=== PATIENT | female | born 1960 | race Caucasian/White ===

== ENCOUNTER 2019-06-30 23:08 | Emergency (ER) | payer BC ==
[2019-06-30 23:17] VITALS: BP 193/87; PULSE 95; RESP 20; TEMP 99
--- NOTE | 2019-06-30 23:22 | ED ---
General Adult HPI - General Chief complaint: Extremity Injury, Lower Stated complaint: unable to walk/right hip pain Time Seen by Provider: 06/30/19 23:21 Source: patient, family Mode of arrival: ambulatory Limitations: no limitations - History of Present Illness Initial comments: Patient presents the ED with her complaining of having right hip and thigh pain for the past week or so. Patient states that her pain is worse with ambulation and changes in position. Patient states that her pain began after a road trip to [place]. Patient states that she was also laying on her side a lot while in [place], and she is unsure if she may have injured her right leg. Patient states that she has taken Aleve for her pain today without much relief. Patient denies known trauma or fall. Patient denies fever or chills, headache, chest pain, dyspnea, dizziness, abdominal pain, nausea or vomiting, back pain, focal numbness/weakness/neuro deficit, or any other symptoms or complaints. - Related Data Allergies Allergy/AdvReac Type Severity Reaction Status Date / Time Penicillins Allergy Rash/Hives Verified 06/30/19 23:17 Review of Systems ROS Statement: Those systems with pertinent positive or pertinent negative responses have been documented in the HPI. ROS Other: All systems not noted in ROS Statement are negative. Past Medical History Past Medical History: No Reported History History of Any Multi-Drug Resistant Organisms: None Reported Past Surgical History: Hysterectomy Past Psychological History: No Psychological Hx Reported Smoking Status: Never smoker Past Alcohol Use History: None Reported Past Drug Use History: None Reported General Exam Limitations: no limitations General appearance: alert, in no apparent distress Head exam: Present: atraumatic, normocephalic Eye exam: Present: normal appearance, EOMI ENT exam: Present: mucous membranes moist Respiratory exam: Present: normal lung sounds bilaterally. Absent: respiratory distress, wheezes, rales, rhonchi Cardiovascular Exam: Present: regular rate, normal rhythm, normal heart sounds, other (Normal dorsalis pedis pulses bilaterally) GI/Abdominal exam: Present: soft. Absent: distended, tenderness Extremities exam: Present: other (Trace bipedal edema; negative Leonela's sign bilaterally; right lateral hip tenderness). Absent: calf tenderness Back exam: Present: full ROM. Absent: tenderness Neurological exam: Present: alert, oriented X3, other (No evidence of lower extremity neurological deficit or saddle anesthesia). Absent: motor sensory deficit Psychiatric exam: Present: normal affect, normal mood Skin exam: Present: warm, dry, intact, normal color Course Vital Signs 06/30/19 23:12 Temperature 99 F Pulse Rate 95 Respiratory 20 Rate Blood Pressure 193/87 O2 Sat by Pulse 100 Oximetry Medical Decision Making - Medical Decision Making Patient denies development of any new pain or symptoms while in the ED. Patient's right hip and right femur x-rays are negative. Patient's right lower extremity venous Doppler ultrasound is negative for DVT. I suspect that the patient's right hip/lower extremity pain is likely secondary to a hip strain or potentially trochanteric bursitis. Patient and are aware the patient's test results. Patient was was counseled about hip pain/strain/bursitis, she feels comfortable going home with her at this time. She was instructed to continue taking NSAIDs as needed/as directed for her pain. She was clearly explained return and follow-up instructions. She was instructed to follow up closely with her primary care provider. Patient was instructed to return to the ED should she develop new or worsening pain, fever, chest pain, shortness of breath, vomiting, feeling dizzy or faint, or near worsening symptoms. She feels comfortable with this plan. - Radiology Data Radiology results: report reviewed (Right lower extremity venous Doppler ultrasound is negative for DVT), image reviewed (Right hip and right femur x- rays are negative for acute fracture or dislocation) Disposition Clinical Impression: Right hip pain Disposition: HOME SELF-CARE Condition: Stable Instructions (If sedation given, give patient instructions): Hip Bursitis (ED), Hip Pain (ED) Additional Instructions: Return to the ER immediately should you develop new or worsening pain, fever, chest pain, shortness of breath, vomiting, feeling dizzy or faint, or near worsening symptoms. Follow up closely with your primary care provider. Is patient prescribed a controlled substance at d/c from ED?: No Referrals: None,Stated [Primary Care Provider] - 1-2 days Time of Disposition: 01:08
[2019-06-30] MEDS ORDERED: oxyCODONE-APAP 5-325MG 1 EACH TAB PO STA (23:28)
--- NOTE | 2019-07-01 00:28 | XR ---
EXAMINATION TYPE: XR femur RT DATE OF EXAM: 06/30/2019 COMPARISON: NONE HISTORY: Hip pain TECHNIQUE: 4 views FINDINGS: I see no fracture nor dislocation. I see no focal bone destruction.. There is spurring on t he superior patella. Hip joint is intact. There is some spurring at the femoral and tibial condyles. IMPRESSION: Minor osteoarthritis. No fracture seen.
--- NOTE | 2019-07-01 00:30 | XR ---
EXAMINATION TYPE: XR Hip Complete RT DATE OF EXAM: 06/30/2019 COMPARISON: NONE HISTORY: Femur and hip pain TECHNIQUE: 2 views FINDINGS: I see no fracture nor dislocation. Hip joint space is fairly normal. There is no sign of hi p dysplasia. IMPRESSION: Negative right hip exam.
--- NOTE | 2019-07-01 00:50 | US ---
EXAMINATION TYPE: US venous doppler duplex LE RT DATE OF EXAM: 07/01/2019 12:34 AM COMPARISON: NONE CLINICAL HISTORY: Right thigh pain, rule out DVT. SIDE PERFORMED: Right TECHNIQUE: The lower extremity deep venous system is examined utilizing real time linear array sonog rohith with graded compression, doppler sonography and color-flow sonography. VESSELS IMAGED: External Iliac Vein (EIV) Common Femoral Vein Deep Femoral Vein Greater Saphenous Vein * Femoral Vein Popliteal Vein Small Saphenous Vein * Proximal Calf Veins (* superficial vessels) Right Leg: Negative for DVT IMPRESSION: No sign of deep vein thrombosis in the right leg.
== END 2019-07-01 01:17 | disposition home or self-care (01) ==
LOC: EC 23:08
DX: M25.551 Pain in right hip (principal); M79.651 Pain in right thigh; Z88.0 Allergy status to penicillin
CPT/HCPCS: 73502; 99284

== ENCOUNTER 2019-07-03 16:05 | Observation (INO) | payer BC ==
[2019-07-03 16:17] LABS: Glucose,Whole Blood >600 mg/dL (75-99)
[2019-07-03 16:40] LABS: Basophils % (A) 0 %; Eosinophils # (A) 0.1 k/uL (0-0.7); Eosinophils % (A) 1 %; HCT 36.2 % (34.0-46.0); HGB 11.3 gm/dL (11.4-16.0); Hypochromasia Slight; Lymphocytes % (A) 14 %; MCHC 31.3 g/dL (31.0-37.0); MCV 89.3 fL (80.0-100.0); Mean Platelet Volume 7.3; Monocytes # (A) 0.5 k/uL (0-1.0); Monocytes % (A) 3 %; Neutrophils # (A) 12.1 k/uL (1.3-7.7); Neutrophils % (A) 81 %; Platelet Count 458 k/uL (150-450); RBC 4.05 m/uL (3.80-5.40); RDW 13.4 % (11.5-15.5); WBC 14.9 k/uL (3.8-10.6)
[2019-07-03 16:46] LABS: Appearance,Urine Clear (Clear); Bilirubin,Urine Negative (Negative); Blood,Urine Small (Negative); Color,Urine Colorless; Glucose,Urine (UA) 4+ (Negative); Ketones,Urine Negative (Negative); Leukocyte Esterase,Urine Small (Negative); Mucus,Urine Rare /hpf; Nitrite,Urine Negative (Negative); PH, Urine 5.5 (5.0-8.0); Protein,Urine Trace (Negative); RBC,Urine 9 /hpf (0-5); Specific Gravity,Urine 1.023 (1.001-1.035); Squamous Epithelial Cell,Urine 1 /hpf (0-4); Urobilinogen,Urine <2.0 mg/dL (<2.0); WBC,Urine 55 /hpf (0-5)
[2019-07-03 16:51] LABS: ALT 14 U/L (4-34); AST 26 U/L (14-36); African American GFR (CKD) >90 (>60 ml/min/1.73 sqM); Albumin 2.8 g/dL (3.5-5.0); Alkaline Phosphatase 167 U/L (38-126); Amylase <30 U/L (30-110); Anion Gap 12 mmol/L; Blood Urea Nitrogen 17 mg/dL (7-17); Calcium 7.6 mg/dL (8.4-10.2); Carbon Dioxide 25 mmol/L (22-30); Chloride 86 mmol/L (98-107); Non-African American GFR(CKD) >90 (>60 ml/min/1.73 sqM); Potassium 4.7 mmol/L (3.5-5.1); Sodium 123 mmol/L (137-145); Total Bilirubin 0.4 mg/dL (0.2-1.3); Total Protein 6.9 g/dL (6.3-8.2)
[2019-07-03] MEDS ORDERED: SODIUM CHLORIDE 0.9% 1,000 ML IV STA ×4 (16:59→19:11)
[2019-07-03] MEDS ORDERED: SODIUM CHLORIDE 0.9% 500 ML 500 ML IV STA ×2 (16:59→19:01)
--- NOTE | 2019-07-03 17:01 | ED ---
Recheck HPI - General Chief Complaint: Recheck/Abnormal Lab/Rx Stated Complaint: Sent by doctor Time Seen by Provider: 07/03/19 16:58 Source: patient, RN notes reviewed, old records reviewed Mode of arrival: ambulatory Limitations: no limitations - History of Present Illness Initial Comments: This is a 50-year-old female DF for evaluation patient is in here for recurrent evaluation of right hip pain is was abnormal outpatient blood sugar. He has not been feeling well for quite some time came back from vacation due to having severe hip pain she was on medications but the whole time in a wheelchair because of this pain. She states she is having difficulty bearing weight on her right leg denying dysuria denying trauma. Patient was seen in emergency department 2 days ago for similar complaint seen by primary care Sent to ER today for further management treatment. MD Complaint: wound re-check (Recheck right foot right leg pain), abnormal lab (Recheck abnormal blood sugar) -: days(s) Returns Today for: Called Because of Abnormal Lab/Test Context: called for abnormal lab result (elevated Blood Sugar) Treatments Prior to Arrival: other medications - Related Data Allergies Allergy/AdvReac Type Severity Reaction Status Date / Time Penicillins Allergy Rash/Hives Verified 07/03/19 16:16 Review of Systems ROS Statement: Those systems with pertinent positive or pertinent negative responses have been documented in the HPI. ROS Other: All systems not noted in ROS Statement are negative. Past Medical History Past Medical History: Diabetes Mellitus, Hypertension History of Any Multi-Drug Resistant Organisms: None Reported Past Surgical History: Hysterectomy, Tonsillectomy Past Psychological History: No Psychological Hx Reported Smoking Status: Never smoker Past Alcohol Use History: None Reported Past Drug Use History: None Reported General Exam Limitations: no limitations General appearance: alert, in no apparent distress Head exam: Present: atraumatic, normocephalic, normal inspection Eye exam: Present: normal appearance, PERRL, EOMI. Absent: scleral icterus, conjunctival injection, periorbital swelling ENT exam: Present: normal exam, mucous membranes moist Neck exam: Present: normal inspection. Absent: tenderness, meningismus, lym phadenopathy Respiratory exam: Present: normal lung sounds bilaterally. Absent: respiratory distress, wheezes, rales, rhonchi, stridor Cardiovascular Exam: Present: regular rate, normal rhythm, tachycardia, normal heart sounds. Absent: systolic murmur, diastolic murmur, rubs, gallop, clicks GI/Abdominal exam: Present: soft, normal bowel sounds. Absent: distended, tenderness, guarding, rebound, rigid Extremities exam: Present: normal inspection, full ROM, normal capillary refill, other (Right Hip Pain, ttt, ttp, decROM). Absent: tenderness, pedal edema, joint swelling, calf tenderness Back exam: Present: normal inspection Neurological exam: Present: alert, oriented X3, CN II-XII intact Psychiatric exam: Present: normal affect, normal mood Skin exam: Present: warm, dry, intact, normal color. Absent: rash Course Vital Signs 07/03/19 07/03/19 16:13 18:15 Temperature 99.9 F H Pulse Rate 103 H 86 Respiratory 20 16 Rate Blood Pressure 182/77 176/82 O2 Sat by Pulse 100 100 Oximetry - Reevaluation(s) Reevaluation #1: 07/03/19 19:18 Medical record is reviewed Reevaluation #2: 07/03/19 19:18 Patient is having improved symptoms and improved pain control Reevaluation #3: 07/03/19 19:20 will obtain MRI in am - Consultations Consultation #1: Spoke with Dr. Clemens was agreeable for admission, would like Dr. Garvin for orthopedic consult Medical Decision Making - Medical Decision Making 58 female to the ER for evaluation, severe right hip pain, patient having severe right hip pain elevated CRP patient will place on IV antibiotics and admitted for evaluation and treatment - Lab Data Result diagrams: 07/03/19 16:25 07/03/19 16:25 Lab Results 07/03/19 07/03/19 07/03/19 Range/Units 16:09 16:15 16:25 WBC 14.9 H (3.8-10.6) k/uL RBC 4.05 (3.80-5.40) m/uL Hgb 11.3 L (11.4-16.0) gm/dL Hct 36.2 (34.0-46.0) % MCV 89.3 (80.0-100.0) fL MCH 28.0 (25.0-35.0) pg MCHC 31.3 (31.0-37.0) g/dL RDW 13.4 (11.5-15.5) % Plt Count 458 H (150-450) k/uL Neutrophils % 81 % Lymphocytes % 14 % Monocytes % 3 % Eosinophils % 1 % Basophils % 0 % Neutrophils # 12.1 H (1.3-7.7) k/uL Lymphocytes # 2.0 (1.0-4.8) k/uL Monocytes # 0.5 (0-1.0) k/uL Eosinophils # 0.1 (0-0.7) k/uL Basophils # 0.0 (0-0.2) k/uL Hypochromasia Slight PT (9.0-12.0) sec INR (<1.2) APTT (22.0-30.0) sec Sodium (137-145) mmol/L Potassium (3.5-5.1) mmol/L Chloride (98-107) mmol/L Carbon Dioxide (22-30) mmol/L Anion Gap mmol/L BUN (7-17) mg/dL Creatinine (0.52-1.04) mg/dL Est GFR (CKD-EPI)AfAm (>60 ml/min/1.73 sqM) Est GFR (CKD-EPI)NonAf (>60 ml/min/1.73 sqM) Glucose (74-99) mg/dL POC Glucose (mg/dL) >600 H (75-99) mg/dL POC Glu Chemical Engraver ID Shannon Meehan Plasma Lactic Acid Tello (0.7-2.0) mmol/L Calcium (8.4-10.2) mg/dL Phosphorus 3.3 (2.5-4.5) mg/dL Magnesium 1.8 (1.6-2.3) mg/dL Total Bilirubin (0.2-1.3) mg/dL AST (14-36) U/L ALT (4-34) U/L Alkaline Phosphatase (38-126) U/L C-Reactive Protein 331.9 H (<10.0) mg/L Total Protein (6.3-8.2) g/dL Albumin (3.5-5.0) g/dL Amylase (30-110) U/L Lipase (23-300) U/L Urine Color Urine Appearance (Clear) Urine pH (5.0-8.0) Ur Specific [place] (1.001-1.035) Urine Protein (Negative) Urine Glucose (UA) (Negative) Urine Ketones (Negative) Urine Blood (Negative) Urine Nitrite (Negative) Urine Bilirubin (Negative) Urine Urobilinogen (<2.0) mg/dL Ur Leukocyte Esterase (Negative) Urine RBC (0-5) /hpf Urine WBC (0-5) /hpf Ur Squamous Epith Cells (0-4) /hpf Urine Mucus (None) /hpf Acetone, Qual (Negative) 07/03/19 07/03/19 07/03/19 Range/Units 16:25 16:25 16:25 WBC (3.8-10.6) k/uL RBC (3.80-5.40) m/uL Hgb (11.4-16.0) gm/dL Hct (34.0-46.0) % MCV (80.0-100.0) fL MCH (25.0-35.0) pg MCHC (31.0-37.0) g/dL RDW (11.5-15.5) % Plt Count (150-450) k/uL Neutrophils % % Lymphocytes % % Monocytes % % Eosinophils % % Basophils % % Neutrophils # (1.3-7.7) k/uL Lymphocytes # (1.0-4.8) k/uL Monocytes # (0-1.0) k/uL Eosinophils # (0-0.7) k/uL Basophils # (0-0.2) k/uL Hypochromasia PT 10.3 (9.0-12.0) sec INR 1.0 (<1.2) APTT 23.1 (22.0-30.0) sec Sodium 123 L (137-145) mmol/L Potassium 4.7 (3.5-5.1) mmol/L Chloride 86 L (98-107) mmol/L Carbon Dioxide 25 (22-30) mmol/L Anion Gap 12 mmol/L BUN 17 (7-17) mg/dL Creatinine 0.63 (0.52-1.04) mg/dL Est GFR (CKD-EPI)AfAm >90 (>60 ml/min/1.73 sqM) Est GFR (CKD-EPI)NonAf >90 (>60 ml/min/1.73 sqM) Glucose 631 H* (74-99) mg/dL POC Glucose (mg/dL) (75-99) mg/dL POC Glu Chemical Engraver ID Plasma Lactic Acid Tello (0.7-2.0) mmol/L Calcium 7.6 L (8.4-10.2) mg/dL Phosphorus (2.5-4.5) mg/dL Magnesium (1.6-2.3) mg/dL Total Bilirubin 0.4 (0.2-1.3) mg/dL AST 26 (14-36) U/L ALT 14 (4-34) U/L Alkaline Phosphatase 167 H (38-126) U/L C-Reactive Protein (<10.0) mg/L Total Protein 6.9 (6.3-8.2) g/dL Albumin 2.8 L (3.5-5.0) g/dL Amylase <30 L (30-110) U/L Lipase 108 (23-300) U/L Urine Color Colorless Urine Appearance Clear (Clear) Urine pH 5.5 (5.0-8.0) Ur Specific [place] 1.023 (1.001-1.035) Urine Protein Trace H (Negative) Urine Glucose (UA) 4+ H (Negative) Urine Ketones Negative (Negative) Urine Blood Small H (Negative) Urine Nitrite Negative (Negative) Urine Bilirubin Negative (Negative) Urine Urobilinogen <2.0 (<2.0) mg/dL Ur Leukocyte Esterase Small H (Negative) Urine RBC 9 H (0-5) /hpf Urine WBC 55 H (0-5) /hpf Ur Squamous Epith Cells 1 (0-4) /hpf Urine Mucus Rare H (None) /hpf Acetone, Qual Negative (Negative) 07/03/19 Range/Units 16:25 WBC (3.8-10.6) k/uL RBC (3.80-5.40) m/uL Hgb (11.4-16.0) gm/dL Hct (34.0-46.0) % MCV (80.0-100.0) fL MCH (25.0-35.0) pg MCHC (31.0-37.0) g/dL RDW (11.5-15.5) % Plt Count (150-450) k/uL Neutrophils % % Lymphocytes % % Monocytes % % Eosinophils % % Basophils % % Neutrophils # (1.3-7.7) k/uL Lymphocytes # (1.0-4.8) k/uL Monocytes # (0-1.0) k/uL Eosinophils # (0-0.7) k/uL Basophils # (0-0.2) k/uL Hypochromasia PT (9.0-12.0) sec INR (<1.2) APTT (22.0-30.0) sec Sodium (137-145) mmol/L Potassium (3.5-5.1) mmol/L Chloride (98-107) mmol/L Carbon Dioxide (22-30) mmol/L Anion Gap mmol/L BUN (7-17) mg/dL Creatinine (0.52-1.04) mg/dL Est GFR (CKD-EPI)AfAm (>60 ml/min/1.73 sqM) Est GFR (CKD-EPI)NonAf (>60 ml/min/1.73 sqM) Glucose (74-99) mg/dL POC Glucose (mg/dL) (75-99) mg/dL POC Glu Chemical Engraver ID Plasma Lactic Acid Tello 1.4 (0.7-2.0) mmol/L Calcium (8.4-10.2) mg/dL Phosphorus (2.5-4.5) mg/dL Magnesium (1.6-2.3) mg/dL Total Bilirubin (0.2-1.3) mg/dL AST (14-36) U/L ALT (4-34) U/L Alkaline Phosphatase (38-126) U/L C-Reactive Protein (<10.0) mg/L Total Protein (6.3-8.2) g/dL Albumin (3.5-5.0) g/dL Amylase (30-110) U/L Lipase (23-300) U/L Urine Color Urine Appearance (Clear) Urine pH (5.0-8.0) Ur Specific [place] (1.001-1.035) Urine Protein (Negative) Urine Glucose (UA) (Negative) Urine Ketones (Negative) Urine Blood (Negative) Urine Nitrite (Negative) Urine Bilirubin (Negative) Urine Urobilinogen (<2.0) mg/dL Ur Leukocyte Esterase (Negative) Urine RBC (0-5) /hpf Urine WBC (0-5) /hpf Ur Squamous Epith Cells (0-4) /hpf Urine Mucus (None) /hpf Acetone, Qual (Negative) Critical Care Time Critical Care Time: Yes Total Critical Care Time: 31 Disposition Clinical Impression: Fever, Hyperglycemia, Dehydration, Hyponatremia, Right hip pain Narrative: r/o Septic Arthritis Disposition: ADMITTED IP TO THIS [facility] Condition: Fair Is patient prescribed a controlled substance at d/c from ED?: No Referrals: Shade Clemens MD [Primary Care Provider] - 1-2 days
[2019-07-03 17:02] LABS: Partial Thromboplastin Time 23.1 sec (22.0-30.0); Prothrombin Time 10.3 sec (9.0-12.0)
[2019-07-03 17:06] LABS: Glucose 631 mg/dL (74-99)
[2019-07-03 17:31] LABS: Magnesium 1.8 mg/dL (1.6-2.3); Phosphorus 3.3 mg/dL (2.5-4.5)
[2019-07-03 17:53] LABS: C Reactive Protein 331.9 mg/L (<10.0)
[2019-07-03] MEDS ORDERED: LORazepam 2 MG/ML INJ IM STA (18:19)
[2019-07-03] MEDS ORDERED: VANCOMYCIN IV PER PHARMACY 1 EACH MISC MISCELLANE PRN (19:01)
[2019-07-03] MEDS ORDERED: INSULIN REGULAR 100 UNIT/ML VIAL IV ONE (19:11)
[2019-07-03] MEDS ORDERED: INSULIN REGULAR 100 UNIT/ML VIAL SQ ONE (19:11)
[2019-07-03] MEDS ORDERED: VANCOMYCIN 1,250 MG in SODIUM CHLORIDE 0.9% 250 ML IVPB STA (19:15)
[2019-07-03] MEDS ORDERED: KETOROLAC 30 MG/ML 1 ML VIAL IVP STA (19:21)
[2019-07-03] MEDS ORDERED: MORPHINE SULFATE 4 MG/ML SYRINGE IVP STA (19:21)
[2019-07-03] MEDS ORDERED: MORPHINE SULFATE 4 MG/ML SYRINGE IVP PRN (19:21)
[2019-07-03 20:11] LABS: Glucose,Whole Blood 313 mg/dL (75-99)
[2019-07-03 21:38] LABS: Glucose,Whole Blood 252 mg/dL (75-99)
[2019-07-03] MEDS: INSULIN ASPART (NovoLOG) 100 UNIT/ML VIAL SQ SCH (22:02)
[2019-07-04] MEDS: KETOROLAC 30 MG/ML 1 ML VIAL IVP PRN ×2 (05:23→16:22)
[2019-07-04 06:59] LABS: Glucose,Whole Blood 247 mg/dL (75-99)
[2019-07-04] MEDS ORDERED: INSULIN ASPART (NovoLOG) 100 UNIT/ML VIAL SQ SCH (07:30)
[2019-07-04] MEDS: ENOXAPARIN 40 MG/0.4 ML SYRINGE SQ SCH (07:42)
[2019-07-04] MEDS: INSULIN ASPART (NovoLOG) 100 UNIT/ML VIAL SQ SCH ×6 (07:42→21:40)
--- NOTE | 2019-07-04 07:44 | P.HPIM ---
History of Present Illness H&P Date: 07/04/19 Chief Complaint: Hip pain The patient is here complaining of right hip pain However, after she told me she was diabetic and her blood sugar was over 600 on my glucometer. Evaluation of this after being worked up in the emergency room. Question hip element. Orthopedic surgery has now been consulted. Review of Systems Constitutional: Reports chronic pain, Denies chills, Denies fever Eyes: denies blurred vision, denies pain Ears, nose, mouth and throat: Denies headache, Denies sore throat Respiratory: Denies cough Genitourinary: Reports urinary frequency Musculoskeletal: Denies myalgias Integumentary: Denies pruritus, Denies rash Neurological: Denies numbness, Denies weakness Past Medical History Past Medical History: Diabetes Mellitus, Hypertension History of Any Multi-Drug Resistant Organisms: None Reported Past Surgical History: Hysterectomy, Tonsillectomy Past Anesthesia/Blood Transfusion Reactions: No Reported Reaction Past Psychological History: No Psychological Hx Reported Smoking Status: Never smoker Past Alcohol Use History: None Reported Past Drug Use History: None Reported - Past Family History Father Family Medical History: Diabetes Mellitus Medications and Allergies Home Medications Medication Instructions Recorded Confirmed Type No Known Home Medications 07/03/19 07/03/19 History Allergies Allergy/AdvReac Type Severity Reaction Status Date / Time Penicillins Allergy Rash/Hives Verified 07/03/19 20:38 Physical Exam Vitals: Vital Signs Temp Pulse Pulse Resp BP BP Pulse Ox 07/03/19 21:29 99.0 F 90 17 152/70 97 07/03/19 20:49 99 F 30 L 18 144/71 96 07/03/19 19:40 92 18 178/88 96 07/03/19 18:15 86 16 176/82 100 07/03/19 16:13 99.9 F H 103 H 20 182/77 100 Intake and Output 07/03/19 07/03/19 07/03/19 06:59 14:59 22:59 Other: Voiding Method Toilet # Voids 0 Weight 68.492 kg - Constitutional General appearance: no acute distress - EENT Eyes: EOMI - Neck Neck: no lymphadenopathy - Respiratory Respiratory: bilateral: CTA - Cardiovascular Rhythm: regular Heart sounds: normal: S1, S2 Abnormal Heart Sounds: no S3 Gallop - Gastrointestinal General gastrointestinal: soft, no tenderness - Integumentary Integumentary: normal turgor - Neurologic Neurologic: CNII-XII intact - Psychiatric Psychiatric: A&O x's 3 Results CBC & Chem 7: 07/03/19 16:25 07/03/19 16:25 Labs: Abnormal Lab Results - Last 24 Hours (Table) 07/03/19 07/03/19 07/03/19 Range/Units 16:09 16:15 16:25 WBC 14.9 H (3.8-10.6) k/uL Hgb 11.3 L (11.4-16.0) gm/dL Plt Count 458 H (150-450) k/uL Neutrophils # 12.1 H (1.3-7.7) k/uL ESR (0-20) mm/hr Sodium (137-145) mmol/L Chloride (98-107) mmol/L Glucose (74-99) mg/dL POC Glucose (mg/dL) >600 H (75-99) mg/dL Calcium (8.4-10.2) mg/dL Alkaline Phosphatase (38-126) U/L C-Reactive Protein 331.9 H (<10.0) mg/L Albumin (3.5-5.0) g/dL Amylase (30-110) U/L Urine Protein (Negative) Urine Glucose (UA) (Negative) Urine Blood (Negative) Ur Leukocyte Esterase (Negative) Urine RBC (0-5) /hpf Urine WBC (0-5) /hpf Urine Mucus (None) /hpf 07/03/19 07/03/19 07/03/19 Range/Units 16:25 16:25 16:25 WBC (3.8-10.6) k/uL Hgb (11.4-16.0) gm/dL Plt Count (150-450) k/uL Neutrophils # (1.3-7.7) k/uL ESR 62 H (0-20) mm/hr Sodium 123 L (137-145) mmol/L Chloride 86 L (98-107) mmol/L Glucose 631 H* (74-99) mg/dL POC Glucose (mg/dL) (75-99) mg/dL Calcium 7.6 L (8.4-10.2) mg/dL Alkaline Phosphatase 167 H (38-126) U/L C-Reactive Protein (<10.0) mg/L Albumin 2.8 L (3.5-5.0) g/dL Amylase <30 L (30-110) U/L Urine Protein Trace H (Negative) Urine Glucose (UA) 4+ H (Negative) Urine Blood Small H (Negative) Ur Leukocyte Esterase Small H (Negative) Urine RBC 9 H (0-5) /hpf Urine WBC 55 H (0-5) /hpf Urine Mucus Rare H (None) /hpf 07/03/19 07/03/19 Range/Units 20:08 21:33 WBC (3.8-10.6) k/uL Hgb (11.4-16.0) gm/dL Plt Count (150-450) k/uL Neutrophils # (1.3-7.7) k/uL ESR (0-20) mm/hr Sodium (137-145) mmol/L Chloride (98-107) mmol/L Glucose (74-99) mg/dL POC Glucose (mg/dL) 313 H 252 H (75-99) mg/dL Calcium (8.4-10.2) mg/dL Alkaline Phosphatase (38-126) U/L C-Reactive Protein (<10.0) mg/L Albumin (3.5-5.0) g/dL Amylase (30-110) U/L Urine Protein (Negative) Urine Glucose (UA) (Negative) Urine Blood (Negative) Ur Leukocyte Esterase (Negative) Urine RBC (0-5) /hpf Urine WBC (0-5) /hpf Urine Mucus (None) /hpf Thrombosis Risk Factor Assmnt - Choose All That Apply Any of the Below Risk Factors Present?: Yes Each Factor Represents 1 point: Age 41-60 years Thrombosis Risk Factor Assessment Total Risk Factor Score: 1 Thrombosis Risk Factor Assessment Level: Low Risk Assessment and Plan (1) Hyperglycemia Current Visit: Yes Status: Acute Code(s): R73.9 - HYPERGLYCEMIA, UNSPECIFIED SNOMED Code(s): 23352105 (2) Right hip pain Current Visit: Yes Status: Acute Code(s): M25.551 - PAIN IN RIGHT HIP SNOMED Code(s): 06821120 Plan: Restart insulin. Consult orthopedics for right hip pain. Diabetes education. Check CMP. CODE STATUS is full
[2019-07-04] MEDS: VANCOMYCIN 1,250 MG in SODIUM CHLORIDE 0.9% 250 ML IVPB SCH ×2 (08:39→21:41)
[2019-07-04 11:42] LABS: Glucose,Whole Blood 337 mg/dL (75-99)
[2019-07-04 16:21] VITALS: BMI 25.1
[2019-07-04 16:43] LABS: Glucose,Whole Blood 244 mg/dL (75-99)
--- NOTE | 2019-07-04 16:58 | MR ---
EXAMINATION TYPE: MR hip RT wo/w con DATE OF EXAM: 07/04/2019 COMPARISON: None HISTORY: Rt hip pain x 2 weeks, R/O septic arthritis CONTRAST: Standard multiplanar, multisequence MRI departmental protocol utilizing 7 mL intravenous Gadavist femi olinium contrast. The pelvic ring is intact. Proximal femurs appear intact. There is no evidence of avascular necrosis. There is no significant hip joint effusion. Joint fluid is fairly symmetric in th e hip joints. There is fluid level in the urinary bladder consistent with air from catheterization. There is small amount of free fluid in the pelvis. I see no pelvic mass. The contrast coronal images are limited by artifact. I see no pathologic enhancement. There is abnormal increased signal in the vastus lateralis muscle of the right hip. There is subcutan eous edema over the lateral aspect of the right hip. There is soft tissue edema and fluid signal post erior to the right side rectus femoris muscle at the hip. There is soft tissue pathologic lateral pat hologic enhancement at the hip joint. There is small areas of fluid signal in the soft tissues that m easure up to 1.5 cm. IMPRESSION: No evidence of fracture or avascular necrosis. No evidence of septic arthritis. Symmetric hip joint f luid. Mild free fluid in the pelvis. Subcutaneous edema and soft tissue edema and enhancement lateral to the greater trochanter and the ac etabulum of the right hip that could relate to myositis and phlegmon. Small fluid collections could b e abscesses.
--- NOTE | 2019-07-04 19:44 | P.CNOR ---
History of Present Illness - [facility] Consult date: 07/04/19 Consult reason: joint pain History of present illness: Patient is a pleasant 58 year old female seen at bedside this afternoon in consultation for right hip pain. She states she has had pain at the outside of her right hip for the past few weeks. It is mostly tender to touch or lay on her right side. She denies groin pain or radicular symptoms including numbness or tingling. She denies injury to the right hip or thigh. She denies fever or chills. She has no other current complaints. Review of Systems All systems: negative Constitutional: Denies chills, Denies fever Eyes: denies blurred vision, denies pain Ears, nose, mouth and throat: Denies headache, Denies sore throat Cardiovascular: Denies chest pain, Denies shortness of breath Respiratory: Denies cough Gastrointestinal: Denies abdominal pain, Denies diarrhea, Denies nausea, Denies vomiting Genitourinary: Denies dysuria, Denies hematuria Musculoskeletal: Denies myalgias Integumentary: Denies pruritus, Denies rash Neurological: Denies numbness, Denies weakness Psychiatric: Denies anxiety, Denies depression Endocrine: Denies fatigue, Denies weight change Past Medical History Past Medical History: Diabetes Mellitus, Hypertension History of Any Multi-Drug Resistant Organisms: None Reported Past Surgical History: Hysterectomy, Tonsillectomy Past Anesthesia/Blood Transfusion Reactions: No Reported Reaction Past Psychological History: No Psychological Hx Reported Smoking Status: Never smoker Past Alcohol Use History: None Reported Past Drug Use History: None Reported - Past Family History Father Family Medical History: Diabetes Mellitus Medications and Allergies Home Medications Medication Instructions Recorded Confirmed Type No Known Home Medications 07/03/19 07/03/19 History Allergies Allergy/AdvReac Type Severity Reaction Status Date / Time Penicillins Allergy Rash/Hives Verified 07/03/19 20:38 Physical Examination Inspection of the right hip and lower extremity shows no deformity or shortening. There is no erythema, echymoses or wounds. She is tender to palpation at the greater trochanter. It is not hot to touch. She has no groin pain with internal or external rotation, flexion, abduction or adduction of the hip. Neurovascular status is intact with motor and sensation throughout the lower extremity. 2+ DP pulse and less than 2 sec cap refill is present distally. Calf is SNT Results Xrays and MRI of the right hip are reviewed. There is no evidence of fracture, dislocation, AVN, septic arthritis, abnormal joint fluid collection or lesions. - Labs Labs: Abnormal Lab Results - Last 24 Hours (Table) 07/03/19 07/03/19 07/03/19 Range/Units 16:25 20:08 21:33 ESR 62 H (0-20) mm/hr POC Glucose (mg/dL) 313 H 252 H (75-99) mg/dL 07/04/19 07/04/19 07/04/19 Range/Units 06:58 11:41 16:42 ESR (0-20) mm/hr POC Glucose (mg/dL) 247 H 337 H 244 H (75-99) mg/dL H & H 07/03/19 Range/Units 16:25 Hgb 11.3 L (11.4-16.0) gm/dL Hct 36.2 (34.0-46.0) % Coagulation 07/03/19 Range/Units 16:25 INR 1.0 (<1.2) Result Diagrams: 07/03/19 16:25 07/03/19 16:25 - Diagnostic results Hip x-ray: report reviewed, image reviewed Hip MRI: report reviewed, image reviewed Assessment and Plan (1) Trochanteric bursitis of right hip Narrative/Plan: There is no plan for immediate surgical intervention. She appears to be suffering from greater trochanteric bursitis. I have recommended continue conservative measures including ice, avoiding laying on right side, and NSAIDs as tolerated and directed by primary team. She may follow up as an outpatient. Thank you Current Visit: Yes Status: Acute Priority: Medium Code(s): M70.61 - TROCHANTERIC BURSITIS, RIGHT HIP SNOMED Code(s): 1593664 (2) Right hip pain Current Visit: Yes Status: Acute Priority: Medium Code(s): M25.551 - PAIN IN RIGHT HIP SNOMED Code(s): 16484550
[2019-07-04 19:59] LABS: Hemoglobin A1C 14.2 % (4.0-6.0)
[2019-07-04 21:16] LABS: Glucose,Whole Blood 259 mg/dL (75-99)
[2019-07-04] MEDS: INSULIN DETEMIR (LEVEMIR) 100 UNIT/ML SYR SQ SCH (21:40)
[2019-07-05] MEDS: KETOROLAC 30 MG/ML 1 ML VIAL IVP PRN ×2 (03:04→22:05)
[2019-07-05 06:58] LABS: Glucose,Whole Blood 128 mg/dL (75-99)
[2019-07-05] MEDS: INSULIN ASPART (NovoLOG) 100 UNIT/ML VIAL SQ SCH ×7 (07:23→21:22)
[2019-07-05 07:37] LABS: HCT 30.5 % (34.0-46.0); HGB 9.9 gm/dL (11.4-16.0); MCH 27.8 pg (25.0-35.0); MCHC 32.6 g/dL (31.0-37.0); MCV 85.3 fL (80.0-100.0); Mean Platelet Volume 7.6; Platelet Count 420 k/uL (150-450); RBC 3.57 m/uL (3.80-5.40); RDW 13.3 % (11.5-15.5); WBC 12.3 k/uL (3.8-10.6)
[2019-07-05] MEDS: ENOXAPARIN 40 MG/0.4 ML SYRINGE SQ SCH (07:48)
[2019-07-05 07:57] LABS: ALT 14 U/L (4-34); AST 25 U/L (14-36); African American GFR (CKD) >90 (>60 ml/min/1.73 sqM); Albumin 2.1 g/dL (3.5-5.0); Alkaline Phosphatase 92 U/L (38-126); Anion Gap 6 mmol/L; Blood Urea Nitrogen 11 mg/dL (7-17); Calcium 7.3 mg/dL (8.4-10.2); Carbon Dioxide 24 mmol/L (22-30); Chloride 101 mmol/L (98-107); Glucose 135 mg/dL (74-99); Non-African American GFR(CKD) >90 (>60 ml/min/1.73 sqM); Potassium 4.6 mmol/L (3.5-5.1); Sodium 131 mmol/L (137-145); Total Bilirubin 0.3 mg/dL (0.2-1.3); Total Protein 5.7 g/dL (6.3-8.2)
[2019-07-05 09:11] LABS: Lymphocytes # (M) 1.72 k/uL (1.0-4.8); Monocytes # (M) 0.25 k/uL (0-1.0); Neutrophils # (M) 10.33 k/uL (1.3-7.7); Neutrophils % (M) 84 %; Nucleated Red Blood Cells 0 /100 WBC (0-0); Total Cells Counted 100
[2019-07-05] MEDS: VANCOMYCIN 1,250 MG in SODIUM CHLORIDE 0.9% 250 ML IVPB SCH ×2 (09:12→23:24)
[2019-07-05 12:25] LABS: Glucose,Whole Blood 196 mg/dL (75-99)
--- NOTE | 2019-07-05 16:32 | P.DS ---
Providers Date of admission: 07/04/19 13:11 Attending physician: Shade Clemens Consults: 07/03/19 19:21 Consult Physician Routine Consulting Provider: Jason Garvin Consult Reason/Comments: hip pain Do you want consulting provider notified?: Yes Primary care physician: Shade Clemens - Discharge Diagnosis(es) (1) Hyperglycemia Current Visit: Yes Status: Acute (2) Right hip pain Current Visit: Yes Status: Acute Priority: Medium Hospital Course: This is discharge home in a 58-year-old white female essentially admitted for right hip pain which was found to be myositis. MRI did not show significant issue. However, and more importantly she was admitted for uncontrolled diabetes. She has been noncompliant the last 5 years not taking her insulin. She has had significant weight loss and is now treated appropriately and stabil ized with basal bolus insulin. Patient Condition at Discharge: Fair Plan - Discharge Summary Discharge Rx Participant: No New Discharge Prescriptions: New Insulin Detemir (Levemir) [Levemir] 21 unit SQ HS #3 syr INSULIN ASPART (NovoLOG) [NovoLOG (formulary)] 7 unit SQ AC-TID #1 vial Atorvastatin Calcium [Lipitor] 40 mg PO DAILY #90 tablet Discharge Medication List Atorvastatin Calcium [Lipitor] 40 mg PO DAILY #90 tablet 07/05/19 [Rx] INSULIN ASPART (NovoLOG) [NovoLOG (formulary)] 7 unit SQ AC-TID #1 vial 07/05/19 [Rx] Insulin Detemir (Levemir) [Levemir] 21 unit SQ HS #3 syr 07/05/19 [Rx] Follow up Appointment(s)/Referral(s): [facility] [NON-STAFF] - As Needed (glucometer and supplies ) Shade Clemens MD [Primary Care Provider] - 07/12/19 11:20 am Discharge Disposition: HOME SELF-CARE
[2019-07-05] MEDS: ACETAMINOPHEN TAB 325 MG TAB PO PRN (16:46)
[2019-07-05 16:52] LABS: Glucose,Whole Blood 191 mg/dL (75-99)
[2019-07-05] MEDS ORDERED: VANCOMYCIN TROUGH DUE 1 EACH MISC MISCELLANE ONE (20:00)
[2019-07-05 20:02] LABS: Basophils % (A) 0 %; Eosinophils # (A) 0.1 k/uL (0-0.7); Eosinophils % (A) 0 %; HGB 9.4 gm/dL (11.4-16.0); Lymphocytes # (A) 1.6 k/uL (1.0-4.8); Lymphocytes % (A) 14 %; MCH 26.9 pg (25.0-35.0); MCHC 31.3 g/dL (31.0-37.0); MCV 85.9 fL (80.0-100.0); Mean Platelet Volume 7.2; Monocytes # (A) 0.4 k/uL (0-1.0); Monocytes % (A) 3 %; Neutrophils # (A) 9.3 k/uL (1.3-7.7); Neutrophils % (A) 80 %; Platelet Count 415 k/uL (150-450); RDW 13.2 % (11.5-15.5); WBC 11.6 k/uL (3.8-10.6)
[2019-07-05 20:34] LABS: Appearance,Urine Cloudy (Clear); Bacteria,Urine Rare /hpf; Bilirubin,Urine Negative (Negative); Blood,Urine Small (Negative); Budding Yeast,Urine Few /hpf; Color,Urine Light Yellow; Glucose,Urine (UA) 1+ (Negative); Ketones,Urine Negative (Negative); Leukocyte Esterase,Urine Large (Negative); Mucus,Urine Rare /hpf; Nitrite,Urine Negative (Negative); PH, Urine 5.5 (5.0-8.0); Protein,Urine 1+ (Negative); RBC,Urine 7 /hpf (0-5); Specific Gravity,Urine 1.008 (1.001-1.035); Squamous Epithelial Cell,Urine 1 /hpf (0-4); Urobilinogen,Urine <2.0 mg/dL (<2.0); WBC,Urine >182 /hpf (0-5)
[2019-07-05 20:39] LABS: Glucose,Whole Blood 223 mg/dL (75-99)
[2019-07-05] MEDS: INSULIN DETEMIR (LEVEMIR) 100 UNIT/ML SYR SQ SCH (21:21)
--- NOTE | 2019-07-05 22:19 | XR ---
EXAMINATION: XR chest 2V DATE AND TIME: 07/05/2019 6:57 PM CLINICAL INDICATION: PHH; increase in temperature TECHNIQUE: Departmental protocol COMPARISON: 12/16/2008 FINDINGS: The lungs demonstrate a fine reticular pattern of increased attenuation symmetrically throughout the lungs, minimally silhouetting the pulmonary vasculature. This finding can correlate with a clinical d iagnosis of mild interstitial phase pulmonary edema. The pleural spaces are positive for small pleural effusions posteriorly. The cardiac silhouette is borderline enlarged. The remainder of the mediastinal silhouette is unremar kable. The skeletal structures and soft tissues are negative for acute findings. IMPRESSION: 1. Suspect mild pulmonary edema. 2. Small bilateral pleural effusions.
[2019-07-06 06:45] LABS: Glucose,Whole Blood 184 mg/dL (75-99)
[2019-07-06 08:03] VITALS: PULSE 86; RESP 17
[2019-07-06] MEDS: INSULIN ASPART (NovoLOG) 100 UNIT/ML VIAL SQ SCH ×6 (08:09→17:11)
[2019-07-06] MEDS: ENOXAPARIN 40 MG/0.4 ML SYRINGE SQ SCH (08:10)
[2019-07-06] MEDS: VANCOMYCIN 1,250 MG in SODIUM CHLORIDE 0.9% 250 ML IVPB SCH (09:22)
[2019-07-06 12:06] LABS: Glucose,Whole Blood 160 mg/dL (75-99)
[2019-07-06 15:43] VITALS: BP 160/75; TEMP 99.5
[2019-07-06] MEDS: ACETAMINOPHEN TAB 325 MG TAB PO PRN (15:45)
[2019-07-06 16:55] LABS: Glucose,Whole Blood 232 mg/dL (75-99)
== END 2019-07-06 18:24 | disposition home or self-care (01) ==
LOC: EC 16:05 → UNDOADMIN 19:25 → 4SSUR 19:25 → OBSVTOIN 07-04 13:11 → INTOOBSV 07-04 13:11 → UNDODISIN 07-06 18:24
PROVIDERS: ADMIT Family Medicine; ATTEND Family Medicine
DX: E11.65 Type 2 diabetes mellitus with hyperglycemia (principal); N39.0 Urinary tract infection, site not specified; M70.61 Trochanteric bursitis, right hip; I10 Essential (primary) hypertension; R63.4 Abnormal weight loss; Z91.128 Patient's intentional underdosing of medication regimen for other reason; Z88.0 Allergy status to penicillin; Z90.710 Acquired absence of both cervix and uterus; Z90.89 Acquired absence of other organs; Z79.4 Long term (current) use of insulin; Z68.25 Body mass index [BMI] 25.0-25.9, adult; Z83.3 Family history of diabetes mellitus
CPT/HCPCS: 96376 ×2; 96366 ×4; 96367; 96372 ×3; 96361; 96365; 96375; 99285; 36415; 80053 ×2; 85652; 82150; 82009; 83605 ×2; 83690; 83735; 84100; 85025 ×2; 85027; 80202; 85610; 85730; 86140; 81001 ×2; 87040; 87086; 83036; 71046; 73723; G0378 ×4; J3370 ×4; J0696 ×4; J1650 ×3; J1885 ×3; A9585

== ENCOUNTER → 2020-01-02 | Outpatient (CLI) | payer BC ==
[2020-01-03 00:06] LABS: African American GFR (CKD) 71.4 (60.0-200.0); Albumin 3.8 g/dL (3.80-4.90); Albumin/Globulin Ratio 1.52 (1.60-3.17); Anion Gap 10.5 mmol/L (4.00-12.00); Calcium 8.6 mg/dL (8.7-10.3); Carbon Dioxide 26.5 mmol/L (21.6-31.8); Chol/HDL Ratio 2.17; Globulin 2.5 g/dL (1.6-3.3); LDL Cholesterol,Calculated 36.4 mg/dL (0.0-131.0); Non-African American GFR(CKD) 61.6 (60.0-200.0); Potassium 4.6 mmol/L (3.5-5.5); Total Bilirubin 0.5 mg/dL (0.2-1.2); Total Protein 6.3 g/dL (6.2-8.2); VLDL Calculation 18.6 mg/dL (5.00-40.00)
== END | disposition home or self-care (01) ==
LOC: LABWHC1 15:32
DX: E78.5 Hyperlipidemia, unspecified (principal); E11.9 Type 2 diabetes mellitus without complications; I42.9 Cardiomyopathy, unspecified
CPT/HCPCS: 36415; 80053; 80061

== ENCOUNTER → 2020-01-30 | Outpatient (CLI) | payer BC ==
[2020-01-31 03:02] LABS: African American GFR (CKD) 71.4 (60.0-200.0); Anion Gap 11.7 mmol/L (4.00-12.00); Calcium 8.6 mg/dL (8.7-10.3); Carbon Dioxide 27.3 mmol/L (21.6-31.8); Non-African American GFR(CKD) 61.6 (60.0-200.0); Potassium 4.2 mmol/L (3.5-5.5)
== END | disposition home or self-care (01) ==
LOC: LABWHC1 15:58
PROVIDERS: ATTEND Internal Medicine Cardiovascular Disease
DX: E78.5 Hyperlipidemia, unspecified (principal); R07.89 Other chest pain; I34.0 Nonrheumatic mitral (valve) insufficiency
CPT/HCPCS: 36415; 80048

== ENCOUNTER 2020-06-20 13:21 | Inpatient (IN) | payer BC ==
--- NOTE | 2020-06-20 14:03 | ED ---
Recheck HPI - General Chief Complaint: Recheck/Abnormal Lab/Rx Stated Complaint: Abnormal labs Time Seen by Provider: 06/20/20 13:32 Source: patient, RN notes reviewed Mode of arrival: ambulatory Limitations: no limitations - History of Present Illness Initial Comments: this is a well-appearing and conversant 59-year-old white female patient presents to the emergency room in no acute distress sent by PMD for abnormal potassium level drawn by physician yesterday. Patient was told potassium of 7.0. Patient without any complaints of dizziness shortness of breath chest pain. Patient denies any nausea vomiting diarrhea denies any fevers. MD Complaint: abnormal lab - Related Data Home Medications Medication Instructions Recorded Confirmed Aspirin EC [Ecotrin Low Dose] 81 mg PO DAILY 06/20/20 06/20/20 Cholecalciferol [Vitamin D3 (25 50 mcg PO DAILY 06/20/20 06/20/20 Mcg = 1000 Iu)] DULoxetine HCL [Cymbalta] 60 mg PO DAILY 06/20/20 06/20/20 Fish Oil/Dha/Epa [Fish Oil 1,200 1 cap PO DAILY 06/20/20 06/20/20 mg Fish Oil] Furosemide [Lasix] 40 mg PO DAILY 06/20/20 06/20/20 Insulin Aspart (Niacinamide) 7 units SQ AC-TID 06/20/20 06/20/20 [Fiasp 100 Unit/ml Flextouch] Insulin Degludec [Tresiba 24 units SQ HS 06/20/20 06/20/20 Flextouch U-200] Isosorbide Dinitrate [Isordil] 20 mg PO TID 06/20/20 06/20/20 Metoprolol Succinate (ER) [Toprol 75 mg PO DAILY 06/20/20 06/20/20 Xl] Multivitamins, Thera [Multivitamin 1 tab PO DAILY 06/20/20 06/20/20 (formulary)] Prasugrel [Effient] 10 mg PO DAILY 06/20/20 06/20/20 Sacubitril/Valsartan [Entresto 49 1 tab PO BID 06/20/20 06/20/20 mg-51 mg Tablet] Spironolactone 50 mg PO DAILY 06/20/20 06/20/20 hydrALAZINE HCL [Apresoline] 37.5 mg PO TID 06/20/20 06/20/20 Previous Rx's Medication Instructions Recorded Atorvastatin Calcium [Lipitor] 40 mg PO DAILY #90 tablet 07/05/19 Allergies Allergy/AdvReac Type Severity Reaction Status Date / Time Penicillins Allergy Rash/Hives Verified 06/20/20 13:30 Review of Systems ROS Statement: Those systems with pertinent positive or pertinent negative responses have been documented in the HPI. ROS Other: All systems not noted in ROS Statement are negative. Past Medical History Past Medical History: Diabetes Mellitus, Hyperlipidemia, Hypertension History of Any Multi-Drug Resistant Organisms: None Reported Past Surgical History: Hysterectomy, Tonsillectomy Past Anesthesia/Blood Transfusion Reactions: No Reported Reaction Past Psychological History: No Psychological Hx Reported Smoking Status: Never smoker Past Alcohol Use History: None Reported Past Drug Use History: None Reported - Past Family History Father Family Medical History: Diabetes Mellitus General Exam Limitations: no limitations General appearance: alert, in no apparent distress Respiratory exam: Present: normal lung sounds bilaterally Cardiovascular Exam: Present: bradycardia, normal heart sounds GI/Abdominal exam: Present: soft Course Vital Signs 06/20/20 13:25 Temperature 98.9 F Pulse Rate 59 L Respiratory 20 Rate Blood Pressure 148/77 O2 Sat by Pulse 100 Oximetry Medical Decision Making - Medical Decision Making patient admitted to Dr. Clemens for hyperkalemia and acute kidney injury. patient medicated for hyperkalemia per protocol. Patient remains asymptomatic on color television console monitor sinus bradycardia 58. - Lab Data Result diagrams: 06/20/20 14:32 06/20/20 14:32 Lab Results 06/20/20 06/20/20 Range/Units 14:32 14:32 WBC 8.5 (3.8-10.6) k/uL RBC 4.07 (3.80-5.40) m/uL Hgb 12.7 (11.4-16.0) gm/dL Hct 37.4 (34.0-46.0) % MCV 91.8 (80.0-100.0) fL MCH 31.1 (25.0-35.0) pg MCHC 33.8 (31.0-37.0) g/dL RDW 12.8 (11.5-15.5) % Plt Count 266 (150-450) k/uL MPV 7.1 Sodium 132 L (137-145) mmol/L Potassium 7.4 H* (3.5-5.1) mmol/L Chloride 100 (98-107) mmol/L Carbon Dioxide 23 (22-30) mmol/L Anion Gap 9 mmol/L BUN 33 H (7-17) mg/dL Creatinine 1.22 H (0.52-1.04) mg/dL Est GFR (CKD-EPI)AfAm 56 (>60 ml/min/1.73 sqM) Est GFR (CKD-EPI)NonAf 49 (>60 ml/min/1.73 sqM) Glucose 254 H (74-99) mg/dL Calcium 9.3 (8.4-10.2) mg/dL Magnesium 1.8 (1.6-2.3) mg/dL Total Bilirubin 0.5 (0.2-1.3) mg/dL AST 23 (14-36) U/L ALT 25 (4-34) U/L Alkaline Phosphatase 73 (38-126) U/L Total Protein 7.7 (6.3-8.2) g/dL Albumin 4.5 (3.5-5.0) g/dL - EKG Data EKG shows normal: sinus rhythm, axis Rate: bradycardia EKG Comments: twelve-lead EKG shows sinus bradycardia at 59 bpm, FL interval 16 ms, QRS duration 90 ms, QTC 421 ms. ekg also evaluated by attending physician. Critical Care Time Critical Care Time: Yes Total Critical Care Time: 35 Critical Care Time: patient placing room on color television console monitor IV and labs obtained. Labs reviewed resulting in hyperkalemia 7.4 sodium 32 creatinine 1.2 to glucose 254. Patient medicated with calcium, glucose, insulin, and sodium bicarb and Kayexalate. EKG reviewed initially showing sinus bradycardia rate of 59 with normal FL QRS and QTc intervals patient admitted to Dr. Clemens with consult to nephrology. Disposition Referrals: Shade Clemens MD [Primary Care Provider] - 1-2 days
[2020-06-20 14:52] LABS: Albumin 4.5 g/dL (3.5-5.0); Calcium 9.3 mg/dL (8.4-10.2); HCT 37.4 % (34.0-46.0); HGB 12.7 gm/dL (11.4-16.0); MCH 31.1 pg (25.0-35.0); MCHC 33.8 g/dL (31.0-37.0); MCV 91.8 fL (80.0-100.0); Magnesium 1.8 mg/dL (1.6-2.3); Mean Platelet Volume 7.1; Platelet Count 266 k/uL (150-450); RBC 4.07 m/uL (3.80-5.40); RDW 12.8 % (11.5-15.5); Total Bilirubin 0.5 mg/dL (0.2-1.3); Total Protein 7.7 g/dL (6.3-8.2); WBC 8.5 k/uL (3.8-10.6)
[2020-06-20 14:55] LABS: Potassium 7.4 mmol/L (3.5-5.1)
[2020-06-20] MEDS ORDERED: INSULIN REGULAR 100 UNIT/ML VIAL IV ONE (15:02)
[2020-06-20] MEDS ORDERED: CALCIUM GLUCONATE 1 GM in SODIUM CHLORIDE 0.9% 100 ML IVPB ONE (15:02)
[2020-06-20] MEDS ORDERED: SODIUM BICARB 8.4% 50 ML SYR (1 MEQ/ML) IV ONE (15:02)
[2020-06-20] MEDS ORDERED: SODIUM POLYSTYRENE SULFONATE 15 GM/60 ML BOTTLE PO ONE (15:02)
[2020-06-20] MEDS ORDERED: DEXTROSE 50% SYRINGE 50 ML IVP ONE (15:02)
[2020-06-20] MEDS ORDERED: SODIUM CHLORIDE 0.9% 500 ML 500 ML IV ONE (15:09)
[2020-06-20] MEDS ORDERED: NALOXONE 0.4 MG/ML 1 ML VIAL IV PRN (15:11)
[2020-06-20] MEDS ORDERED: ACETAMINOPHEN TAB 325 MG TAB PO PRN (15:11)
[2020-06-20] MEDS: SODIUM CHLORIDE 0.9% 1,000 ML IV SCH (16:02)
[2020-06-20 17:31] LABS: Calcium 9.2 mg/dL (8.4-10.2); Potassium 5.6 mmol/L (3.5-5.1)
[2020-06-20 18:14] LABS: Glucose,Whole Blood 115 mg/dL (75-99)
[2020-06-20 20:21] LABS: Glucose,Whole Blood 233 mg/dL (75-99)
[2020-06-20] MEDS: ISOSORBIDE DINITRATE 20 MG TAB PO SCH (22:39)
[2020-06-20] MEDS: hydrALAZINE HCL 50 MG TAB PO SCH (22:39)
[2020-06-20] MEDS: METOPROLOL SUCCINATE (ER) 25 MG TAB.ER.24H PO SCH (22:39)
[2020-06-20] MEDS: INSULIN ASPART (NovoLOG) 100 UNIT/ML VIAL SQ SCH (22:45)
[2020-06-21 06:08] LABS: Glucose,Whole Blood 165 mg/dL (75-99)
[2020-06-21] MEDS: INSULIN ASPART (NovoLOG) 100 UNIT/ML VIAL SQ SCH ×6 (06:28→20:30)
[2020-06-21] MEDS: SODIUM CHLORIDE 0.9% 1,000 ML IV SCH ×2 (07:00→20:29)
[2020-06-21 07:25] LABS: Basophils % (A) 0 %; Eosinophils # (A) 0.2 k/uL (0-0.7); Eosinophils % (A) 2 %; HGB 11.8 gm/dL (11.4-16.0); Lymphocytes # (A) 3.2 k/uL (1.0-4.8); Lymphocytes % (A) 41 %; MCHC 33.7 g/dL (31.0-37.0); MCV 92.1 fL (80.0-100.0); Monocytes # (A) 0.6 k/uL (0-1.0); Monocytes % (A) 7 %; Neutrophils # (A) 3.7 k/uL (1.3-7.7); Neutrophils % (A) 47 %; Platelet Count 250 k/uL (150-450); RDW 12.3 % (11.5-15.5); WBC 7.8 k/uL (3.8-10.6)
[2020-06-21 07:47] LABS: Calcium 8.9 mg/dL (8.4-10.2)
[2020-06-21 07:59] LABS: Potassium 6.1 mmol/L (3.5-5.1)
[2020-06-21] MEDS ORDERED: DEXTROSE 50% SYRINGE 50 ML IVP STA (08:11)
[2020-06-21] MEDS ORDERED: CALCIUM GLUCONATE 1 GM in SODIUM CHLORIDE 0.9% 100 ML IVPB ONE (08:11)
[2020-06-21] MEDS ORDERED: INSULIN REGULAR 100 UNIT/ML VIAL IV ONE (08:11)
[2020-06-21] MEDS: hydrALAZINE HCL 50 MG TAB PO SCH ×3 (09:39→20:30)
[2020-06-21] MEDS: ASPIRIN 81 MG PO SCH (09:39)
[2020-06-21] MEDS: ISOSORBIDE DINITRATE 20 MG TAB PO SCH ×3 (09:41→20:30)
[2020-06-21] MEDS: ATORVASTATIN 40 MG TAB PO SCH (09:45)
[2020-06-21] MEDS: METOPROLOL SUCCINATE (ER) 25 MG TAB.ER.24H PO SCH (09:45)
[2020-06-21] MEDS: DULoxetine HCL 60 MG CAPSULE.DR PO SCH (09:45)
[2020-06-21] MEDS: PRASUGREL 10 MG TAB PO SCH (09:45)
--- NOTE | 2020-06-21 10:57 | CONS ---
CONSULTATION REASON FOR CONSULT: Renal failure, hyperkalemia. HISTORY OF ILLNESS: The patient is a 59-year-old female with history of diabetes, hypertension, who was admitted to the hospital for elevated potassium level done for outpatient lab work. The patient denies any history of constipation. She did admit to a fair intake of potassium containing foods, but this was not new from her previous habits. There is no history of use of NSAIDs prior to admission. Patient has been on Lasix at home prior to admission without change in dose. She was also on spironolactone and Entresto. Serum potassium was 5.6 on admission, today it is at 6.1. Creatinine was 1.0 on admission, now it is at 1.5. At initial admission, potassium was as high as 7.4. The patient has received IV medications for the hyperkalemia. She has been voiding fairly okay. The patient's blood sugars have not been significantly elevated, although there was reading of 233 last night. Blood pressure was low this morning with systolic at 95, however, it was as high as 176 mmHg yesterday. TAE inhibitors and Crestor are on hold. Aldactone is also on hold. PAST MEDICAL HISTORY: Type 2 diabetes, hypertension, coronary artery disease with history of coronary stents. I believe patient also has CHF, ejection fraction not known at this time. PAST SURGICAL HISTORY: Hysterectomy, tonsillectomy. SOCIAL HISTORY: Negative for smoking, drug abuse or alcohol abuse. MEDICATIONS: Medications prior to admission included aspirin, vitamin D3, Cymbalta, Lasix, insulin, Isordil, Toprol, Effient and Crestor, hydralazine, spironolactone, Lipitor. ALLERGIES: ALLERGIES include PENICILLIN which causes rash and hives. REVIEW OF SYSTEMS: As per HPI. Other systems negative. EXAMINATION: Patient is comfortable, awake, alert, oriented x3, not in any acute distress. Blood pressure this morning 95/58, heart rate 63 per minute. She is afebrile. Examination of the heart S1, S2. Examination of the lungs, bilateral breath sounds are heard. ABDOMEN: Soft, nontender, obese Examination of lower extremities shows no evidence of edema. ANIMAL CARE GIVER exam grossly intact. LAB: Show sodium 134, potassium 6.1, chloride 100, CO2 is 26, BUN 36, creatinine 1.5, hemoglobin 11.8 g/dL. ASSESSMENT: 1. Acute kidney injury, possibly prerenal and associated with fluctuation in blood pressures as systolic blood pressure is down to 95 from 175 yesterday. The patient is not maintained on any nephrotoxic medications. I will obtain a UA as well as an ultrasound of the kidneys. Hold off on the Entresto for now as well as a spironolactone due to hyperkalemia. 2. Hyperkalemia associated with acute kidney injury, somewhat improved from admission. Continue to hold off on the spironolactone. Maintain patient on low-potassium diet for now. Avoid constipation. Control blood sugars. No evidence of ongoing GI bleed at this time. Repeat labs later on this evening. 3. Rule out chronic kidney disease. 4. Hypertension. 5. History of coronary artery disease. PLAN: Maintain patient on low-potassium diet. Repeat potassium this evening. Check UA. Check ultrasound of the kidneys. Avoid hypotension and fluctuations in blood pressure. Continue off spironolactone and Entresto for now. Repeat labs in a.m. Thank you for this consultation. We will continue to follow the patient with you during her hospitalization. MMODL / IJN: [id number] /
--- NOTE | 2020-06-21 11:15 | P.HPIM ---
History of Present Illness H&P Date: 06/20/20 Chief Complaint: Abnormal labs 59-year-old white female patient with history of hypertension, hyperlipidemia and diabetes mellitus, presents to the emergency room in no acute distress sent by PMD for abnormal potassium level drawn by physician yesterday. Patient was told potassium of 7.0. Patient without any complaints of dizziness shortness of breath chest pain. Patient denies any nausea vomiting diarrhea denies any fevers. Workup in ED including blood work revealed sodium of 132, potassium 7.4, BUN 33/creatinine 1.22; blood glucose of 254 EKG reveals sinus bradycardia at 59; no acute changes Patient was placed on cardiac cath lab manager and was treated with calcium, IV dextrose, IV insulin and sodium bicarbonate and Kayexalate Review of Systems REVIEW OF SYSTEMS: CONSTITUTIONAL: No fever, no malaise, no fatigue. HEENT: No recent visual problems or hearing problems. Denied any sore throat. CARDIOVASCULAR: No chest pain, orthopnea, PND, no palpitations, no syncope. PULMONARY: No shortness of breath, no cough, no hemoptysis. GASTROINTESTINAL: No diarrhea, no nausea, no vomiting, no abdominal pain. NEUROLOGICAL: No headaches, no weakness, no numbness. HEMATOLOGICAL: Denies any bleeding or petechiae. GENITOURINARY: Denies any burning micturition, frequency, or urgency. MUSCULOSKELETAL/RHEUMATOLOGICAL: Denies any joint pain, swelling, or any muscle pain. ENDOCRINE: Denies any polyuria or polydipsia. The rest of the 14-point review of systems is negative. Past Medical History Past Medical History: Diabetes Mellitus, Hyperlipidemia, Hypertension, Myocardial Infarction (NH) Last Myocardial Infarction Date:: december 2019 History of Any Multi-Drug Resistant Organisms: None Reported Past Surgical History: Heart Catheterization With Stent, Hysterectomy, Tonsillectomy Past Anesthesia/Blood Transfusion Reactions: No Reported Reaction Date of Last Stent Placement:: dec 2019 Smoking Status: Never smoker - Past Family History Father Family Medical History: Diabetes Mellitus Medications and Allergies Home Medications Medication Instructions Recorded Confirmed Type Atorvastatin Calcium [Lipitor] 40 mg PO DAILY #90 tablet 07/05/19 06/20/20 Rx Aspirin EC [Ecotrin Low Dose] 81 mg PO DAILY 06/20/20 06/20/20 History Cholecalciferol [Vitamin D3 (25 50 mcg PO DAILY 06/20/20 06/20/20 History Mcg = 1000 Iu)] DULoxetine HCL [Cymbalta] 60 mg PO DAILY 06/20/20 06/20/20 History Fish Oil/Dha/Epa [Fish Oil 1,200 1 cap PO DAILY 06/20/20 06/20/20 History mg Fish Oil] Furosemide [Lasix] 40 mg PO DAILY 06/20/20 06/20/20 History Insulin Aspart (Niacinamide) 7 units SQ AC-TID 06/20/20 06/20/20 History [Fiasp 100 Unit/ml Flextouch] Insulin Degludec [Tresiba 24 units SQ HS 06/20/20 06/20/20 History Flextouch U-200] Isosorbide Dinitrate [Isordil] 20 mg PO TID 06/20/20 06/20/20 History Metoprolol Succinate (ER) [Toprol 75 mg PO DAILY 06/20/20 06/20/20 History Xl] Multivitamins, Thera [Multivitamin 1 tab PO DAILY 06/20/20 06/20/20 History (formulary)] Prasugrel [Effient] 10 mg PO DAILY 06/20/20 06/20/20 History Sacubitril/Valsartan [Entresto 49 1 tab PO BID 06/20/20 06/20/20 History mg-51 mg Tablet] Spironolactone 50 mg PO DAILY 06/20/20 06/20/20 History hydrALAZINE HCL [Apresoline] 37.5 mg PO TID 06/20/20 06/20/20 History Allergies Allergy/AdvReac Type Severity Reaction Status Date / Time Penicillins Allergy Rash/Hives Verified 06/20/20 13:30 Physical Exam Vitals: Vital Signs Temp Pulse Pulse Resp BP BP Pulse Ox 06/20/20 18:10 97.5 F L 71 20 176/80 98 06/20/20 15:27 64 16 154/74 97 06/20/20 13:25 98.9 F 59 L 20 148/77 100 Intake and Output 06/20/20 06/20/20 06/20/20 06:59 14:59 22:59 Other: # Voids 1 Weight 90.718 kg 90.718 kg - Constitutional General appearance: Present: average body habitus, cooperative, no acute distress - EENT Eyes: Present: anicteric sclerae, EOMI, PERRLA, normal appearance ENT: Present: hearing grossly normal, normal oropharynx Ears: bilateral: normal - Neck Neck: Present: normal ROM. Absent: lymphadenopathy, rigidity, thyromegaly Carotids: negative: bruit present Thyroid: bilateral: normal size, negative: enlarged, nodule - Respiratory Respiratory: bilateral: CTA, negative: rales, rhonchi, wheezing - Cardiovascular Rhythm: regular Heart sounds: normal: S1, S2 Abnormal Heart Sounds: Absent: systolic murmur, diastolic murmur - Gastrointestinal General gastrointestinal: Present: normal bowel sounds, soft. Absent: diste nded, organomegaly, tenderness - Genitourinary Genitourinary Comment(s): deferred - Integumentary Integumentary: Present: normal turgor. Absent: jaundiced, rash, ulcer - Neurologic Neurologic: Present: CNII-XII intact. Absent: focal deficits - Musculoskeletal Musculoskeletal: Present: gait normal, strength equal bilaterally - Psychiatric Psychiatric: Present: A&O x's 3, appropriate affect, intact judgment & insight Results CBC & Chem 7: 06/21/20 06:57 06/21/20 06:57 Labs: Abnormal Lab Results - Last 24 Hours (Table) 06/20/20 06/20/20 06/20/20 Range/Units 14:32 17:00 18:12 Sodium 132 L 135 L (137-145) mmol/L Potassium 7.4 H* 5.6 H (3.5-5.1) mmol/L BUN 33 H 30 H (7-17) mg/dL Creatinine 1.22 H 1.08 H (0.52-1.04) mg/dL Glucose 254 H 119 H (74-99) mg/dL POC Glucose (mg/dL) 115 H (75-99) mg/dL Thrombosis Risk Factor Assmnt - Choose All That Apply Each Factor Represents 1 point: Age 41-60 years Thrombosis Risk Factor Assessment Total Risk Factor Score: 1 Thrombosis Risk Factor Assessment Level: Low Risk Assessment and Plan Assessment: 1. Acute renal injury; possibly prerenal azotemia - Patient is started on IV fluids; monitor strict LOVE's, daily weights, renal function and electrolytes; avoid nephrotoxic agents; we will hold off on Aldactone and Entresto from home medications - Consult nephrology for further recommendations 2. Critical Hyperkalemia; possibly related to acute renal injury while on Aldactone; Aldactone is put on hold; patient is started on a low potassium diet 3. Uncontrolled hypertension; entresto and aldactone are held due to hyperkalemia; we'll continue to monitor blood pressure closely and make adjustments as needed; we will avoid hypotension due to acute renal injury 4. CAD; stable on aspirin, statin, Isordil, effient and beta blockers 5. Hyperlipidemia; to 40 mg by mouth daily at bedtime 6. Hyperglycemia/diabetes mellitus; monitor Accu-Cheks every before meals and at bedtime assistance and sliding scale DVT prophylaxis; SCDs and subcu heparin CODE STATUS; full code
--- NOTE | 2020-06-21 12:01 | US ---
EXAMINATION TYPE: US kidneys/renal and bladder DATE OF EXAM: 06/21/2020 COMPARISON: NONE CLINICAL HISTORY: RF. RF EXAM MEASUREMENTS: Right Kidney: 10.3 x 4.3 x 4.4 cm Left Kidney: 10.8 x 6.0 x 5.1 cm Right Kidney: wnl Left Kidney: wnl Bladder: wnl Bilateral Jets seen: Yes There is no evidence for hydronephrosis at this point in time. No nephrolithiasis is seen. No erma s are identified. The urinary bladder is anechoic. Bilateral ureteral jets are seen. IMPRESSION: No distinct abnormality seen.
[2020-06-21 12:11] LABS: Glucose,Whole Blood 296 mg/dL (75-99)
[2020-06-21 14:13] LABS: Appearance,Urine Clear (Clear); Bacteria,Urine Occasional /hpf; Bilirubin,Urine Negative (Negative); Blood,Urine Negative (Negative); Color,Urine Light Yellow; Glucose,Urine (UA) 4+ (Negative); Ketones,Urine Negative (Negative); Leukocyte Esterase,Urine Large (Negative); Mucus,Urine Rare /hpf; Nitrite,Urine Positive (Negative); PH, Urine 5.5 (5.0-8.0); Protein,Urine Negative (Negative); RBC,Urine 1 /hpf (0-5); Urobilinogen,Urine <2.0 mg/dL (<2.0); WBC,Urine 46 /hpf (0-5)
--- NOTE | 2020-06-21 16:11 | P.PN ---
Subjective Progress Note Date: 06/21/20 Principal diagnosis: Acute renal failure Critical hyperkalemia 59-year-old white female patient with history of hypertension, hyperlipidemia and diabetes mellitus, presents to the emergency room in no acute distress sent by PMD for abnormal potassium level drawn by physician yesterday. Patient was told potassium of 7.0. Patient without any complaints of dizziness shortness of breath chest pain. Patient denies any nausea vomiting diarrhea denies any fevers. Workup in ED including blood work revealed sodium of 132, potassium 7.4, BUN 33/creatinine 1.22; blood glucose of 254 06/21/2020 Patient is seen and evaluated sitting up at bedside; denies any complaint of chest pain or shortness of breath Vital signs are reviewed and remained stable with a temperature of 97.8, pulse 67, respirations 16 and blood pressure of 130/76; SpO2 of 97% on room air Lab review reveals sodium of 134, potassium 5.7, BUN/creatinine of 36/1.50; blood glucose remains elevated ranging between 161-296 Patient remains on IV fluid hydration; renal function slightly worsened compared to yesterday; potassium is improved from 6.1 this morning at which time she was treated with IV dextrose, insulin and calcium gluconate Nephrology on board and agreeable with above treatment; renal ultrasound is ordered and pending; continue to hold nephrotoxic agents and diuretics Objective - Vital Signs Vital signs: Vital Signs Temp 97.7 F 06/21/20 08:00 Pulse 67 06/21/20 08:00 Resp 16 06/21/20 08:00 BP 117/61 06/21/20 08:00 Pulse Ox 97 06/21/20 08:00 Intake & Output 06/20/20 06/21/20 06/21/20 18:59 06:59 18:59 Intake Total 236 Balance 236 Weight 90.718 kg 88.5 kg Intake: Oral 236 Other: # Voids 1 1 1 - Exam - Constitutional General appearance: Present: average body habitus, cooperative, no acute distress - EENT Eyes: Present: anicteric sclerae, EOMI, PERRLA, normal appearance ENT: Present: hearing grossly normal, normal oropharynx Ears: bilateral: normal - Neck Neck: Present: normal ROM. Absent: lymphadenopathy, rigidity, thyromegaly Carotids: negative: bruit present Thyroid: bilateral: normal size, negative: enlarged, nodule - Respiratory Respiratory: bilateral: CTA, negative: rales, rhonchi, wheezing - Cardiovascular Rhythm: regular Heart sounds: normal: S1, S2 Abnormal Heart Sounds: Absent: systolic murmur, diastolic murmur - Gastrointestinal General gastrointestinal: Present: normal bowel sounds, soft. Absent: distended, organomegaly, tenderness - Genitourinary Genitourinary Comment(s): deferred - Integumentary Integumentary: Present: normal turgor. Absent: jaundiced, rash, ulcer - Neurologic Neurologic: Present: CNII-XII intact. Absent: focal deficits - Musculoskeletal Musculoskeletal: Present: gait normal, strength equal bilaterally - Psychiatric Psychiatric: Present: A&O x's 3, appropriate affect, intact judgment & insight - Labs CBC & Chem 7: 06/21/20 06:57 06/21/20 12:22 Labs: Abnormal Lab Results - Last 24 Hours (Table) 06/20/20 06/20/20 06/20/20 Range/Units 14:32 17:00 18:12 Sodium 132 L 135 L (137-145) mmol/L Potassium 7.4 H* 5.6 H (3.5-5.1) mmol/L BUN 33 H 30 H (7-17) mg/dL Creatinine 1.22 H 1.08 H (0.52-1.04) mg/dL Glucose 254 H 119 H (74-99) mg/dL POC Glucose (mg/dL) 115 H (75-99) mg/dL 06/20/20 06/21/20 06/21/20 Range/Units 20:18 06:04 06:57 Sodium 134 L (137-145) mmol/L Potassium 6.1 H* (3.5-5.1) mmol/L BUN 36 H (7-17) mg/dL Creatinine 1.50 H (0.52-1.04) mg/dL Glucose 161 H (74-99) mg/dL POC Glucose (mg/dL) 233 H 165 H (75-99) mg/dL 06/21/20 06/21/20 Range/Units 11:14 12:09 Sodium (137-145) mmol/L Potassium 6.7 H* (3.5-5.1) mmol/L BUN (7-17) mg/dL Creatinine (0.52-1.04) mg/dL Glucose (74-99) mg/dL POC Glucose (mg/dL) 296 H (75-99) mg/dL Assessment and Plan Assessment: 1. Acute renal injury; possibly prerenal azotemia - Patient is started on IV fluids; monitor strict LOVE's, daily weights, renal function and electrolytes; avoid nephrotoxic agents; we will hold off on Aldactone and Entresto from home medications - Consult nephrology for further recommendations 2. Critical Hyperkalemia; possibly related to acute renal injury while on Aldactone; Aldactone is put on hold; patient is started on a low potassium diet 3. Uncontrolled hypertension; entresto and aldactone are held due to hyperkalemia; we'll continue to monitor blood pressure closely and make adjustments as needed; we will avoid hypotension due to acute renal injury 4. CAD; stable on aspirin, statin, Isordil, effient and beta blockers 5. Hyperlipidemia; to 40 mg by mouth daily at bedtime 6. Hyperglycemia/diabetes mellitus; monitor Accu-Cheks every before meals and at bedtime assistance and sliding scale DVT prophylaxis; SCDs and subcu heparin CODE STATUS; full code
[2020-06-21 16:54] LABS: Glucose,Whole Blood 111 mg/dL (75-99)
[2020-06-21 17:02] LABS: Calcium 9.3 mg/dL (8.4-10.2); Potassium 5.9 mmol/L (3.5-5.1)
[2020-06-21] MEDS ORDERED: FUROSEMIDE 10 MG/ML 4 ML VIAL IV STA (17:28)
[2020-06-21] MEDS ORDERED: SODIUM POLYSTYRENE SULFONATE 15 GM/60 ML BOTTLE PO STA (17:28)
[2020-06-21 20:20] LABS: Glucose,Whole Blood 164 mg/dL (75-99)
[2020-06-21] MEDS ORDERED: INSULIN DETEMIR (LEVEMIR) 100 UNIT/ML SYR SQ SCH (21:00)
[2020-06-21 23:04] LABS: Calcium 8.8 mg/dL (8.4-10.2)
[2020-06-22 06:58] LABS: Glucose,Whole Blood 201 mg/dL (75-99)
[2020-06-22] MEDS: INSULIN ASPART (NovoLOG) 100 UNIT/ML VIAL SQ SCH ×4 (07:01→12:26)
[2020-06-22] MEDS: SODIUM CHLORIDE 0.9% 1,000 ML IV SCH (07:01)
[2020-06-22 07:20] LABS: Calcium 8.3 mg/dL (8.4-10.2); Potassium 4.6 mmol/L (3.5-5.1)
[2020-06-22] MEDS: DULoxetine HCL 60 MG CAPSULE.DR PO SCH (07:44)
[2020-06-22] MEDS: ISOSORBIDE DINITRATE 20 MG TAB PO SCH (07:45)
[2020-06-22] MEDS: PRASUGREL 10 MG TAB PO SCH (07:45)
[2020-06-22] MEDS: METOPROLOL SUCCINATE (ER) 25 MG TAB.ER.24H PO SCH (07:45)
[2020-06-22] MEDS: hydrALAZINE HCL 50 MG TAB PO SCH (07:45)
[2020-06-22] MEDS: ATORVASTATIN 40 MG TAB PO SCH (07:45)
[2020-06-22] MEDS: ASPIRIN 81 MG PO SCH (07:46)
[2020-06-22 09:58] LABS: Basophils % (A) 0 %; Eosinophils # (A) 0.2 k/uL (0-0.7); Eosinophils % (A) 3 %; HCT 34.1 % (34.0-46.0); HGB 11.6 gm/dL (11.4-16.0); Lymphocytes # (A) 2.5 k/uL (1.0-4.8); Lymphocytes % (A) 36 %; MCH 31.4 pg (25.0-35.0); MCV 92.5 fL (80.0-100.0); Mean Platelet Volume 7.4; Monocytes # (A) 0.5 k/uL (0-1.0); Monocytes % (A) 7 %; Neutrophils # (A) 3.6 k/uL (1.3-7.7); Neutrophils % (A) 53 %; Platelet Count 250 k/uL (150-450); RBC 3.69 m/uL (3.80-5.40); RDW 12.4 % (11.5-15.5); WBC 6.9 k/uL (3.8-10.6)
[2020-06-22 11:31] LABS: Appearance,Urine Clear (Clear); Bacteria,Urine Few /hpf; Bilirubin,Urine Negative (Negative); Blood,Urine Negative (Negative); Color,Urine Light Yellow; Glucose,Urine (UA) Negative (Negative); Ketones,Urine Negative (Negative); Leukocyte Esterase,Urine Moderate (Negative); Nitrite,Urine Positive (Negative); PH, Urine 5.5 (5.0-8.0); Protein,Urine Negative (Negative); RBC,Urine <1 /hpf (0-5); Specific Gravity,Urine 1.008 (1.001-1.035); Squamous Epithelial Cell,Urine <1 /hpf (0-4); Urobilinogen,Urine <2.0 mg/dL (<2.0); WBC,Urine 24 /hpf (0-5)
[2020-06-22 11:52] LABS: Glucose,Whole Blood 194 mg/dL (75-99)
[2020-06-22 11:53] VITALS: BP 115/62; PULSE 72; RESP 16; TEMP 98.1
--- NOTE | 2020-06-22 13:42 | PN ---
PROGRESS NOTE Patient is seen for followup for acute kidney injury and hyperkalemia. Her potassium has improved and serum creatinine is down to 1.2 from peak of 1.54. Potassium level on initial admission was 7.4, currently it is at 4.6. The patient was on spironolactone which is currently on hold. She was also on and Entresto which is on hold. Blood pressure has been on the lower side with systolic around 107-95 mm per Hg initially, currently improved. The patient has received IV fluids since hospitalization. I did give her one dose of Lasix yesterday to help with the hyperkalemia. PHYSICAL EXAMINATION: On examination today, blood pressure is 115/62, heart rate 72 per minute, patient is afebrile. Examination shows patient is euvolemic. No evidence of edema lower extremities. Abdomen is soft, obese, nontender. [employer] exam is grossly intact. LAB: Show from today sodium 136, potassium 4.6, BUN 39, creatinine 1.26. UA is completely benign with 24 WBCs, few bacteria. Previous UA showed about 46 WBCs. ASSESSMENT: 1. Acute kidney injury associated with hypotension, hypoperfusion, currently improved. 2. Hyperkalemia associated acute kidney injury, use of spironolactone as well as component of Entresto as it contains angiotensin receptor blockers, currently improved. 3. Pyuria, rule out urinary tract infection. 4. Hypertension, blood pressure currently low. 5. History of coronary artery disease. PLAN: Continue off spironolactone and Entresto for now. The patient can be discharged to follow up as outpatient in 1-2 weeks. Repeat labs in 4-5 days post discharge and check urine culture prior to discharge. MMODL / IJN: [id number] /
--- NOTE | 2020-06-22 13:47 | P.DS ---
Providers Date of admission: 06/20/20 15:11 Expected date of discharge: 06/22/20 Attending physician: Shade Clemens Consults: 06/20/20 15:12 Consult Physician Routine Consulting Provider: Awa Stephen Consult Reason/Comments: Acute kidney injury, hyperkalemia Do you want consulting provider notified?: Yes Primary care physician: Shade Clemens [facility] Course: 59-year-old white female patient with history of hypertension, hyperlipidemia and diabetes mellitus, presents to the emergency room in no acute distress sent by PMD for abnormal potassium level drawn by physician yesterday. Patient was told potassium of 7.0. Patient without any complaints of dizziness shortness of breath chest pain. Patient denies any nausea vomiting diarrhea denies any fevers. Workup in ED including blood work revealed sodium of 132, potassium 7.4, BUN 33/creatinine 1.22; blood glucose of 254 06/21/2020 Patient is seen and evaluated sitting up at bedside; denies any complaint of chest pain or shortness of breath Vital signs are reviewed and remained stable with a temperature of 97.8, pulse 67, respirations 16 and blood pressure of 130/76; SpO2 of 97% on room air Lab review reveals sodium of 134, potassium 5.7, BUN/creatinine of 36/1.50; blood glucose remains elevated ranging between 161-296 Patient remains on IV fluid hydration; renal function slightly worsened compared to yesterday; potassium is improved from 6.1 this morning at which time she was treated with IV dextrose, insulin and calcium gluconate Nephrology on board and agreeable with above treatment; renal ultrasound is ordered and pending; continue to hold nephrotoxic agents and diuretics 06/22/2020; creatinine continues to improve; renal ultrasound is unremarkable; TAE inhibitor's and diuretics remain on hold; patient's cleared for discharge per nephrology; UA was done upon admission. No cultures; we will repeat UA with culture and sensitivity; I will start patient on oral antibiotics and discharge home today Plan - Discharge Summary Discharge Rx Participant: No New Discharge Prescriptions: New hydrALAZINE HCL [Apresoline] 50 mg PO TID #90 tab Ciprofloxacin HCl [Cipro] 250 mg PO Q12HR 1 Days #10 tab Continue Atorvastatin Calcium [Lipitor] 40 mg PO DAILY #90 tablet Multivitamins, Thera [Multivitamin (formulary)] 1 tab PO DAILY Cholecalciferol [Vitamin D3 (25 Mcg = 1000 Iu)] 50 mcg PO DAILY Isosorbide Dinitrate [Isordil] 20 mg PO TID Insulin Degludec [Tresiba Flextouch U-200] 24 units SQ HS Metoprolol Succinate (ER) [Toprol XL] 75 mg PO DAILY Insulin Aspart (Niacinamide) [Fiasp 100 Unit/ml Flextouch] 7 units SQ AC-TID DULoxetine HCL [Cymbalta] 60 mg PO DAILY Prasugrel [Effient] 10 mg PO DAILY Aspirin EC [Ecotrin Low Dose] 81 mg PO DAILY Fish Oil/Dha/Epa [Fish Oil 1,200 mg Fish Oil] 1 cap PO DAILY Discontinued hydrALAZINE HCL [Apresoline] 37.5 mg PO TID Spironolactone 50 mg PO DAILY Sacubitril/Valsartan [Entresto 49 mg-51 mg Tablet] 1 tab PO BID Furosemide [Lasix] 40 mg PO DAILY Discharge Medication List Atorvastatin Calcium [Lipitor] 40 mg PO DAILY #90 tablet 07/05/19 [Rx] Aspirin EC [Ecotrin Low Dose] 81 mg PO DAILY 06/20/20 [History] Cholecalciferol [Vitamin D3 (25 Mcg = 1000 Iu)] 50 mcg PO DAILY 06/20/20 [History] DULoxetine HCL [Cymbalta] 60 mg PO DAILY 06/20/20 [History] Fish Oil/Dha/Epa [Fish Oil 1,200 mg Fish Oil] 1 cap PO DAILY 06/20/20 [History] Insulin Aspart (Niacinamide) [Fiasp 100 Unit/ml Flextouch] 7 units SQ AC-TID 06/20/20 [History] Insulin Degludec [Tresiba Flextouch U-200] 24 units SQ HS 06/20/20 [History] Isosorbide Dinitrate [Isordil] 20 mg PO TID 06/20/20 [History] Metoprolol Succinate (ER) [Toprol XL] 75 mg PO DAILY 06/20/20 [History] Multivitamins, Thera [Multivitamin (formulary)] 1 tab PO DAILY 06/20/20 [History] Prasugrel [Effient] 10 mg PO DAILY 06/20/20 [History] Ciprofloxacin HCl [Cipro] 250 mg PO Q12HR 1 Days #10 tab 06/22/20 [Rx] hydrALAZINE HCL [Apresoline] 50 mg PO TID #90 tab 06/22/20 [Rx] Follow up Appointment(s)/Referral(s): Awa Stephen MD [STAFF PHYSICIAN] - 1 Week (Kidney specialist.) Shade Clemens MD [Primary Care Provider] - 1-2 days (Please call for follow up appointment on Tuesday.) Patient Instructions/Handouts: Acute Kidney Injury (DC), Hyperkalemia (DC) Discharge Disposition: HOME SELF-CARE
== END 2020-06-22 14:29 | disposition home or self-care (01) | DRG 683 ==
LOC: EC 13:21 → 3SCARD 15:11
PROVIDERS: ADMIT Family Medicine; ATTEND Family Medicine
DX: N17.9 Acute kidney failure, unspecified (principal); I13.0 Hypertensive heart and chronic kidney disease with heart failure and stage 1 through stage 4 chronic kidney disease, or unspecified chronic kidney disease; E11.65 Type 2 diabetes mellitus with hyperglycemia; E78.5 Hyperlipidemia, unspecified; E87.5 Hyperkalemia; I25.10 Atherosclerotic heart disease of native coronary artery without angina pectoris; I25.2 Old myocardial infarction; I95.9 Hypotension, unspecified; E11.22 Type 2 diabetes mellitus with diabetic chronic kidney disease; N18.9 Chronic kidney disease, unspecified; I50.9 Heart failure, unspecified; Z20.822 Contact with and (suspected) exposure to COVID-19; Z90.89 Acquired absence of other organs; Z79.02 Long term (current) use of antithrombotics/antiplatelets; Z79.4 Long term (current) use of insulin; Z79.82 Long term (current) use of aspirin; Z79.899 Other long term (current) drug therapy; Z83.3 Family history of diabetes mellitus; Z90.710 Acquired absence of both cervix and uterus; Z95.5 Presence of coronary angioplasty implant and graft; Z88.0 Allergy status to penicillin; R82.81 Pyuria; T50.2X5A Adverse effect of carbonic-anhydrase inhibitors, benzothiadiazides and other diuretics, initial encounter
CPT/HCPCS: 36415; 76770; 80048; 80053; 81001; 83735; 84132; 85025; 85027; 87077; 87086; 87186; 87635; 93005; 96361; 96365; 96366; 96375; 99285

== ENCOUNTER → 2020-07-14 | Outpatient (CLI) | payer BC ==
[2020-07-14 19:45] LABS: African American GFR (CKD) 71.4 (60.0-200.0); Calcium 9.4 mg/dL (8.7-10.3); Non-African American GFR(CKD) 61.6 (60.0-200.0); Potassium 4.6 mmol/L (3.5-5.5)
== END | disposition home or self-care (01) ==
LOC: LABWHC1 11:08
PROVIDERS: ATTEND Internal Medicine Cardiovascular Disease
DX: E78.5 Hyperlipidemia, unspecified (principal); I42.9 Cardiomyopathy, unspecified; I10 Essential (primary) hypertension; I31.3 Pericardial effusion (noninflammatory); E11.9 Type 2 diabetes mellitus without complications
CPT/HCPCS: 36415; 80048

== ENCOUNTER → 2020-07-28 | Outpatient (CLI) | payer BC ==
[2020-07-28 20:01] LABS: African American GFR (CKD) 71.4 (60.0-200.0); Anion Gap 6.4 mmol/L (4.00-12.00); Calcium 9.1 mg/dL (8.7-10.3); Carbon Dioxide 26.6 mmol/L (21.6-31.8); Non-African American GFR(CKD) 61.6 (60.0-200.0); Potassium 4.8 mmol/L (3.5-5.5)
== END | disposition home or self-care (01) ==
LOC: LABWHC1 12:42
PROVIDERS: ATTEND Internal Medicine Cardiovascular Disease
DX: E11.9 Type 2 diabetes mellitus without complications (principal); I42.9 Cardiomyopathy, unspecified; E78.5 Hyperlipidemia, unspecified
CPT/HCPCS: 36415; 80048

== ENCOUNTER → 2020-09-18 | Outpatient (CLI) | payer BC ==
[2020-09-18 14:29] LABS: Appearance,Urine Clear (Clear); Bilirubin,Urine Negative (Negative); Blood,Urine Negative (Negative); Color,Urine Yellow; Glucose,Urine (UA) 3+ (Negative); Ketones,Urine Negative (Negative); Leukocyte Esterase,Urine Small (Negative); Nitrite,Urine Negative (Negative); Protein,Urine 2+ (Negative); RBC,Urine 4 /hpf (0-5); Specific Gravity,Urine 1.012 (1.001-1.035); Squamous Epithelial Cell,Urine 1 /hpf (0-4); Urobilinogen,Urine <2.0 mg/dL (<2.0); WBC,Urine 24 /hpf (0-5)
[2020-09-18 18:36] LABS: HCT 35.7 % (37.2-46.3); HGB 11.8 g/dL (12.0-15.0); MCH 29.1 pg (27.0-32.0); MCHC 33.1 g/dL (32.0-37.0); MCV 88.1 fL (80.0-97.0); Mean Platelet Volume 10.3 fL (9.5-12.2); Platelet Count 265 X 10*3/uL (140-440); RBC 4.05 X 10*6/uL (4.10-5.20); RDW 12.5 % (11.5-14.5); WBC 7.28 X 10*3/uL (4.50-10.00)
[2020-09-18 19:12] LABS: % Iron Saturation 13.98 (12.00-45.00); African American GFR (CKD) 63.6 (60.0-200.0); BUN/Creat Ratio 17.27 Ratio (12.00-20.00); Calcium 8.6 mg/dL (8.7-10.3); Magnesium 1.8 mg/dL (1.5-2.4); Non-African American GFR(CKD) 54.9 (60.0-200.0); Phosphorus 4.3 mg/dL (2.4-5.1); Potassium 5.4 mmol/L (3.5-5.5); Uric Acid 6.2 mg/dL (2.9-7.7)
[2020-09-18 19:20] LABS: Ferritin 67.3 ng/mL (10.0-291.0)
== END | disposition home or self-care (01) ==
LOC: LABWHC1 12:29
PROVIDERS: ATTEND Nurse Practitioner Family
DX: N17.9 Acute kidney failure, unspecified (principal); M10.9 Gout, unspecified; E55.9 Vitamin D deficiency, unspecified; N25.81 Secondary hyperparathyroidism of renal origin; N39.0 Urinary tract infection, site not specified; D64.9 Anemia, unspecified
CPT/HCPCS: 36415; 80048; 81001; 82306; 82728; 83540; 83550; 83735; 83970; 84100; 84550; 85027

== ENCOUNTER → 2020-09-22 | Outpatient (CLI) | payer BC ==
[2020-09-22 14:51] LABS: African American GFR (CKD) 71.4 (60.0-200.0); Anion Gap 6.7 mmol/L (4.00-12.00); Calcium 8.5 mg/dL (8.7-10.3); Carbon Dioxide 27.3 mmol/L (21.6-31.8); Non-African American GFR(CKD) 61.6 (60.0-200.0); Potassium 4.6 mmol/L (3.5-5.5)
== END | disposition home or self-care (01) ==
LOC: LABWHC1 09:54
PROVIDERS: ATTEND Internal Medicine Cardiovascular Disease
DX: E78.5 Hyperlipidemia, unspecified (principal); I10 Essential (primary) hypertension; E11.9 Type 2 diabetes mellitus without complications
CPT/HCPCS: 36415; 80048

== ENCOUNTER 2020-12-03 12:41 | Emergency (ER) | payer BC ==
[2020-12-03 12:57] VITALS: RESP 20
--- NOTE | 2020-12-03 13:40 | XR ---
EXAMINATION TYPE: XR knee complete LT DATE OF EXAM: 12/03/2020 COMPARISON: NONE HISTORY: Pain TECHNIQUE: Three views are submitted. FINDINGS: Diffuse osteopenia with narrowing of the medial compartment and patellofemoral joint with hypertrophi c spurring. There is a large suprapatellar bursal fluid collection. There is slight irregularity invo lving the anterior margin the patella. Diffuse osteopenia and vascular calcifications. IMPRESSION: 1. Large suprapatellar bursal fluid collection with arthropathy. Recommend CT of the need to exclude patellar fracture.
--- NOTE | 2020-12-03 14:03 | ED ---
Fall HPI - General Source: patient Mode of arrival: wheelchair <Fany Yancey - Last Filed: 12/03/20 15:13> <pipoRivas - Last Filed: 12/03/20 16:23> - General Chief Complaint: Fall Stated Complaint: Fall Time Seen by Provider: 12/03/20 13:03 - History of Present Illness Initial Comments: Patient is a 60-year-old female presenting to the emergency Department with complaints of left knee pain after she fell yesterday. Patient states she was in her driveway, and tripped where her cement meets her grass, when she fell forward landing mostly on her left knee on cement. She did not hit her head, she has no neck pain. She states her only injury from her fall is her left knee pain. She denies any previous injuries or surgeries to her left lower extremity. She states she is unable to bear weight on it. She has no further complaints. (Fany Yancey) - Related Data Home Medications Medication Instructions Recorded Confirmed Aspirin EC [Ecotrin Low Dose] 81 mg PO DAILY 06/20/20 10/10/20 Cholecalciferol [Vitamin D3 (25 50 mcg PO DAILY 06/20/20 10/10/20 Mcg = 1000 Iu)] DULoxetine HCL [Cymbalta] 60 mg PO DAILY 06/20/20 10/10/20 Fish Oil/Dha/Epa [Fish Oil 1,200 1 cap PO DAILY 06/20/20 10/10/20 mg Fish Oil] Insulin Aspart (Niacinamide) 7 units SQ AC-TID 06/20/20 10/10/20 [Fiasp 100 Unit/ml Flextouch] Insulin Degludec [Tresiba 24 units SQ HS 06/20/20 10/10/20 Flextouch U-200] Isosorbide Dinitrate [Isordil] 20 mg PO TID 06/20/20 10/10/20 Metoprolol Succinate (ER) [Toprol 75 mg PO DAILY 06/20/20 10/10/20 XL] Multivitamins, Thera [Multivitamin 1 tab PO DAILY 06/20/20 10/10/20 (formulary)] Prasugrel [Effient] 10 mg PO DAILY 06/20/20 10/10/20 Furosemide [Lasix] 20 mg PO DAILY 10/07/20 10/10/20 hydrALAZINE HCL [Apresoline] 100 mg PO TID 10/07/20 10/10/20 Previous Rx's Medication Instructions Recorded Atorvastatin Calcium [Lipitor] 40 mg PO DAILY #90 tablet 07/05/19 Allergies Allergy/AdvReac Type Severity Reaction Status Date / Time Penicillins Allergy Rash/Hives Verified 12/03/20 12:54 Review of Systems ROS Other: All systems not noted in ROS Statement are negative. <Fany Yancey - Last Filed: 12/03/20 15:13> ROS Other: All systems not noted in ROS Statement are negative. <Rivas Camejo - Last Filed: 12/03/20 16:23> ROS Statement: Those systems with pertinent positive or pertinent negative responses have been documented in the HPI. Past Medical History Past Medical History: Diabetes Mellitus, Hyperlipidemia, Hypertension, Myocardial Infarction (DC) Last Myocardial Infarction Date:: december 2019 History of Any Multi-Drug Resistant Organisms: None Reported Past Surgical History: Heart Catheterization With Stent, Hysterectomy, Tonsillectomy Past Anesthesia/Blood Transfusion Reactions: No Reported Reaction Date of Last Stent Placement:: dec 2019 Past Psychological History: No Psychological Hx Reported Smoking Status: Never smoker Past Alcohol Use History: None Reported Past Drug Use History: None Reported - Past Family History Father Family Medical History: Diabetes Mellitus <Fany Yancey - Last Filed: 12/03/20 15:13> General Exam Limitations: no limitations <Fany Yancey - Last Filed: 12/03/20 15:13> - General Exam Comments Initial Comments: GENERAL: Patient is well-developed and well-nourished. Patient is nontoxic and in mild distress. HEAD: Atraumatic, normocephalic. EYES: Pupils equal round and reactive to light, extraocular movements intact, sclera anicteric, conjunctiva are normal. Eyelids were unremarkable. NECK: Normal range of motion, supple without lymphadenopathy or JVD. No neck pain. LUNGS: Unlabored respirations. Breath sounds clear to auscultation bilaterally and equal. No wheezes rales or rhonchi. HEART: Regular rate and rhythm without murmurs, rubs or gallops. ABDOMEN: Soft, nontender, normoactive bowel sounds. MUSCULOSKELETAL: Patient has bruising and pain noted to the anterior aspect of her left knee. Sh e does have moderate swelling present. She is neurovascular intact. She only has a few degrees of active flexion, very painful extension. No clubbing or cyanosis. NEUROLOGICAL: Patient is alert and oriented x 3. SKIN: Warm, Dry, normal turgor, no rashes or lesions noted. (Fany Yancey) Course Vital Signs 12/03/20 12:54 Temperature 98.2 F Pulse Rate 78 Respiratory 20 Rate Blood Pressure 166/82 O2 Sat by Pulse 97 Oximetry Medical Decision Making <Fany Yancey - Last Filed: 12/03/20 15:13> <Rivas Camejo - Last Filed: 12/03/20 16:23> - Medical Decision Making Patient is a 60-year-old female here with left knee pain after she fell onto it yesterday. No previous history of surgeries or injuries to left lower extremity. X-ray reveals a large suprapatella bursal fluid collection, recommended CT to exclude a patellar fracture. (Fany Yancey) CT of the left knee shows a moderate to large lipohemarthrosis with a nondisplaced vertical fracture through the lateral third of the patella. An additional vertical fracture extending from the front to the back at the intercondylar eminence of the proximal tibia with the extent of the fracture line did not clearly visualize due to the degree of osteopenia. Spoke with Brianna with [facility] was directed to have patient use crutches and knee immobilizer and call the office to make an appointment to be seen by and week. (Rivas Camejo) Disposition Is patient prescribed a controlled substance at d/c from ED?: No <Fany Yancey - Last Filed: 12/03/20 15:13> Is patient prescribed a controlled substance at d/c from ED?: No Time of Disposition: 16:23 <Rivas Camejo - Last Filed: 12/03/20 16:23> Clinical Impression: Fall, Closed fracture of left patella Disposition: HOME SELF-CARE Condition: Stable Instructions (If sedation given, give patient instructions): Patellar Fracture (ED) Additional Instructions: Please return to the Emergency Department if symptoms worsen or any other concerns. Keep splint in place for support. Use crutches as needed. Please follow up with orthopedics. Use Tylenol for pain relief. Referrals: Shade Clemens MD [Primary Care Provider] - 1-2 days Praveen Webster MD [STAFF PHYSICIAN] - 1-2 days
--- NOTE | 2020-12-03 15:44 | CT ---
EXAMINATION TYPE: CT knee LT wo con DATE OF EXAM: 12/03/2020 COMPARISON: Radiograph same day HISTORY: 60-year-old female Left knee pain after fall. TECHNIQUE: Contiguous axial scanning of the left knee without IV contrast. Coronal and sagittal recon structions performed. Reconstructions generated on a dedicated workstation. CT DLP: 133.6 mGycm Automated exposure control for dose reduction was used. FINDINGS: Moderate to large lipohemarthrosis. There is a vertical fracture through the lateral third patella. O steopenia. Tricompartmental degenerative change. Prominent joint space narrowing medial compartment a nd possible extruded medial meniscus. Small posterior loose bodies measuring up to 4 mm. No Barraza's c yst. There is a vertical fracture extending from front to back involving the intercondylar eminence. Anter ior soft tissue swelling. Distal extent of the fracture not clearly identified. IMPRESSION: 1. MODERATE TO LARGE LIPOHEMARTHROSIS WITH A NONDISPLACED VERTICAL FRACTURE THROUGH THE LATERAL THIRD OF THE PATELLA. 2. ADDITIONAL VERTICAL FRACTURE EXTENDING FROM FRONT TO BACK AT THE INTERCONDYLAR EMINENCE OF THE PRO XIMAL TIBIA. THE DISTAL EXTENT OF THE FRACTURE LINE IS NOT CLEARLY VISUALIZED POSSIBLY DUE TO THE DEG REE OF OSTEOPENIA. CONSIDER MRI. 3. TRICOMPARTMENTAL OSTEOARTHROSIS, GREATEST IN THE MEDIAL COMPARTMENT. POSSIBLY TORN AND EXTRUDED ME DIAL MENISCUS.
[2020-12-03] MEDS ORDERED: HYDROcodone/APAP 5-325MG 1 EACH TAB PO STA (16:20)
[2020-12-03 17:17] VITALS: BP 143/79; PULSE 88; TEMP 98.5
== END 2020-12-03 17:17 | disposition home or self-care (01) ==
LOC: EC 12:41
DX: S82.002A Unspecified fracture of left patella, initial encounter for closed fracture (principal); I10 Essential (primary) hypertension; E11.9 Type 2 diabetes mellitus without complications; I25.2 Old myocardial infarction; Z79.4 Long term (current) use of insulin; Z88.0 Allergy status to penicillin; Z79.899 Other long term (current) drug therapy; W01.0XXA Fall on same level from slipping, tripping and stumbling without subsequent striking against object, initial encounter; Y92.89 Other specified places as the place of occurrence of the external cause
CPT/HCPCS: 99283

== ENCOUNTER → 2021-01-01 | Outpatient (CLI) | payer BC ==
[2021-01-01 15:34] LABS: Appearance,Urine Clear (Clear); Bacteria,Urine Rare /hpf; Bilirubin,Urine Negative (Negative); Blood,Urine Negative (Negative); Color,Urine Yellow; Glucose,Urine (UA) 1+ (Negative); Hyaline Casts,Urine 5 /lpf (0-2); Ketones,Urine Negative (Negative); Leukocyte Esterase,Urine Trace (Negative); Nitrite,Urine Negative (Negative); PH, Urine 6.5 (5.0-8.0); Protein,Urine 2+ (Negative); RBC,Urine <1 /hpf (0-5); Specific Gravity,Urine 1.011 (1.001-1.035); Squamous Epithelial Cell,Urine 1 /hpf (0-4); Urobilinogen,Urine <2.0 mg/dL (<2.0); WBC,Urine 2 /hpf (0-5)
[2021-01-01 17:18] LABS: Creatinine,Urine Random 81.2 mg/dL; Protein/Creatinine Ratio,Urine 2.377
[2021-01-01 21:18] LABS: Basophils # (A) 0.05 X 10*3/uL (0.00-0.10); Basophils % (A) 0.7 %; Eosinophils # (A) 0.11 X 10*3/uL (0.04-0.35); Eosinophils % (A) 1.6 %; HCT 35.8 % (37.2-46.3); HGB 12.3 g/dL (12.0-15.0); Lymphocytes # (A) 1.83 X 10*3/uL (0.90-5.00); Lymphocytes % (A) 26.7 %; MCH 31.1 pg (27.0-32.0); MCHC 34.4 g/dL (32.0-37.0); MCV 90.4 fL (80.0-97.0); Mean Platelet Volume 10.3 fL (9.5-12.2); Monocytes # (A) 0.62 X 10*3/uL (0.20-1.00); Monocytes % (A) 9.1 %; Neutrophils % (A) 61.3 %; Platelet Count 260 X 10*3/uL (140-440); RBC 3.96 X 10*6/uL (4.10-5.20); RDW 12.6 % (11.5-14.5); WBC 6.85 X 10*3/uL (4.50-10.00)
[2021-01-02 01:56] LABS: Total Volume 24 Hour,Urine 2100 mL
[2021-01-02 04:57] LABS: Total Protein 24 Hour,Urine 1913.1 mg/24Hr
[2021-01-02 05:25] LABS: Anti-DNA, DS unit <1.0 IU/mL; DNA Double-Stranded NEGATIVE (NEGATIVE)
[2021-01-02 14:44] LABS: C-ANCA <1:20 Titer (<1:20)
[2021-01-02 18:49] LABS: % Iron Saturation 30.17 (12.00-45.00); African American GFR (CKD) 43.4 (60.0-200.0); Anion Gap 15.2 mmol/L (4.00-12.00); BUN/Creat Ratio 13.33 Ratio (12.00-20.00); Carbon Dioxide 22.8 mmol/L (21.6-31.8); Magnesium 1.6 mg/dL (1.5-2.4); Non-African American GFR(CKD) 37.5 (60.0-200.0); Phosphorus 3.7 mg/dL (2.4-5.1); Potassium 5.3 mmol/L (3.5-5.5); Uric Acid 7.6 mg/dL (2.9-7.7)
[2021-01-02 18:58] LABS: Ferritin 295.5 ng/mL (10.0-291.0)
== END | disposition home or self-care (01) ==
LOC: LABWHC1 14:48
PROVIDERS: ATTEND Nurse Practitioner Family
DX: N17.9 Acute kidney failure, unspecified (principal); R80.9 Proteinuria, unspecified; D64.9 Anemia, unspecified; N39.0 Urinary tract infection, site not specified; N25.81 Secondary hyperparathyroidism of renal origin
CPT/HCPCS: 36415; 80048; 81001; 81050; 82306; 82570; 82728; 83516; 83540; 83550; 83735; 83883; 83970; 84100; 84156; 84550; 85025; 86038; 86160; 86162; 86225; 86255; 86334

== ENCOUNTER → 2021-02-16 | Outpatient (CLI) | payer BC ==
[2021-02-16 21:01] LABS: African American GFR (CKD) 68.4 (60.0-200.0); Anion Gap 11.8 mmol/L (4.00-12.00); BUN/Creat Ratio 20.97 Ratio (12.00-20.00); Blood Urea Nitrogen 21.6 mg/dL (9.0-27.0); Calcium 9.1 mg/dL (8.7-10.3); Carbon Dioxide 25.5 mmol/L (21.6-31.8); Potassium 5.1 mmol/L (3.5-5.5)
== END | disposition home or self-care (01) ==
LOC: LABWHC1 12:52
PROVIDERS: ATTEND Internal Medicine Nephrology
DX: N18.32 Chronic kidney disease, stage 3b (principal)
CPT/HCPCS: 36415; 80048

== ENCOUNTER → 2021-03-18 | Outpatient (CLI) | payer BC ==
[2021-03-18 13:41] LABS: Appearance,Urine Clear (Clear); Bilirubin,Urine Negative (Negative); Blood,Urine Negative (Negative); Color,Urine Yellow; Glucose,Urine (UA) Negative (Negative); Ketones,Urine Negative (Negative); Leukocyte Esterase,Urine Small (Negative); Nitrite,Urine Negative (Negative); PH, Urine 6.5 (5.0-8.0); Protein,Urine 3+ (Negative); RBC,Urine 1 /hpf (0-5); Specific Gravity,Urine 1.016 (1.001-1.035); Squamous Epithelial Cell,Urine 2 /hpf (0-4); WBC,Urine 2 /hpf (0-5)
[2021-03-18 13:50] LABS: Creatinine,Urine Random 92.4 mg/dL
[2021-03-18 21:36] LABS: Basophils # (A) 0.03 X 10*3/uL (0.00-0.10); Basophils % (A) 0.6 %; Eosinophils # (A) 0.04 X 10*3/uL (0.04-0.35); Eosinophils % (A) 0.8 %; HCT 35.8 % (37.2-46.3); HGB 11.5 g/dL (12.0-15.0); Lymphocytes # (A) 1.53 X 10*3/uL (0.90-5.00); Lymphocytes % (A) 30.7 %; MCH 28.4 pg (27.0-32.0); MCHC 32.1 g/dL (32.0-37.0); MCV 88.4 fL (80.0-97.0); Mean Platelet Volume 10.1 fL (9.5-12.2); Neutrophils # (A) 2.94 X 10*3/uL (1.80-7.70); Neutrophils % (A) 59.1 %; Platelet Count 276 X 10*3/uL (140-440); RBC 4.05 X 10*6/uL (4.10-5.20); RDW 12.1 % (11.5-14.5); WBC 4.98 X 10*3/uL (4.50-10.00)
[2021-03-19 00:44] LABS: % Iron Saturation 20.61 (12.00-45.00); African American GFR (CKD) 66.1 (60.0-200.0); Albumin 3.6 g/dL (3.8-4.9); Anion Gap 15.3 mmol/L (4.00-12.00); BUN/Creat Ratio 16.79 Ratio (12.00-20.00); Blood Urea Nitrogen 17.8 mg/dL (9.0-27.0); Calcium 8.6 mg/dL (8.7-10.3); Carbon Dioxide 23.3 mmol/L (21.6-31.8); Magnesium 1.8 mg/dL (1.5-2.4); Phosphorus 3.7 mg/dL (2.4-5.1); Potassium 4.6 mmol/L (3.5-5.5); Uric Acid 6.3 mg/dL (2.9-7.7)
== END | disposition home or self-care (01) ==
LOC: LABWHC1 12:50
PROVIDERS: ATTEND Internal Medicine Nephrology
DX: N25.81 Secondary hyperparathyroidism of renal origin (principal); N18.32 Chronic kidney disease, stage 3b; E55.9 Vitamin D deficiency, unspecified; M10.9 Gout, unspecified; N39.0 Urinary tract infection, site not specified; D64.9 Anemia, unspecified; R80.9 Proteinuria, unspecified
CPT/HCPCS: 36415; 80048; 81001; 82040; 82306; 82570; 82728; 83540; 83550; 83735; 83970; 84100; 84156; 84550; 85025

== ENCOUNTER → 2021-06-05 | Outpatient (CLI) | payer BC ==
--- NOTE | 2021-06-05 15:10 | XR ---
Bilateral wrists HISTORY: Pain and swelling 5 views of the left wrist, 4 views of the right wrist No comparisons Degenerative changes present at the carpometacarpal joint, intercarpal joints of the radial aspect of the left and right wrist. Bone mineralization and alignment are maintained. No fracture or dislocati on. Distal pole the right scaphoid shows hypertrophic change with probable geode formation. IMPRESSION: Findings felt likely to represent osteoarthritis within the wrists.
[2021-06-05 19:47] LABS: Basophils # (A) 0.02 X 10*3/uL (0.00-0.10); Basophils % (A) 0.4 %; Eosinophils # (A) 0.04 X 10*3/uL (0.04-0.35); Eosinophils % (A) 0.8 %; HCT 36.8 % (37.2-46.3); HGB 11.7 g/dL (12.0-15.0); Lymphocytes # (A) 1.16 X 10*3/uL (0.90-5.00); Lymphocytes % (A) 23.2 %; MCH 27.4 pg (27.0-32.0); MCHC 31.8 g/dL (32.0-37.0); MCV 86.2 fL (80.0-97.0); Monocytes # (A) 0.34 X 10*3/uL (0.20-1.00); Monocytes % (A) 6.8 %; Neutrophils # (A) 3.42 X 10*3/uL (1.80-7.70); Neutrophils % (A) 68.4 %; Platelet Count 233 X 10*3/uL (140-440); RBC 4.27 X 10*6/uL (4.10-5.20); RDW 13.4 % (11.5-14.5)
[2021-06-05 20:51] LABS: ALT 13 U/L (8-44); AST 17 U/L (13-35); African American GFR (CKD) 56.9 (60.0-200.0); Albumin 3.9 g/dL (3.8-4.9); Albumin/Globulin Ratio 1.22 (1.60-3.17); Alkaline Phosphatase 73 U/L (41-126); Blood Urea Nitrogen 22.2 mg/dL (9.0-27.0); Calcium 9.2 mg/dL (8.7-10.3); Carbon Dioxide 24.3 mmol/L (20.0-27.5); Chloride 99 mmol/L (96-109); Globulin 3.2 g/dL (1.6-3.3); Glucose 222 mg/dL (70-110); Non-African American GFR(CKD) 49.1 (60.0-200.0); Potassium 4.6 mmol/L (3.5-5.5); Sodium 136 mmol/L (135-145); Total Protein 7.1 g/dL (6.2-8.2)
[2021-06-05 20:52] LABS: Rheumatoid Factor, Qnt <10 IU/mL (0-15)
[2021-06-05 21:05] LABS: Erythrocyte Sedimentation Rate 63 mm/Hr (0-30)
[2021-06-05 22:25] LABS: Cyclic Citrull Pep IgG Unit <0.5 U/mL; Cyclic Citrullinated Pep IgG NEGATIVE (NEGATIVE)
== END | disposition home or self-care (01) ==
LOC: LABWHC1 13:15
PROVIDERS: ATTEND Family Medicine
DX: I10 Essential (primary) hypertension (principal); I12.9 Hypertensive chronic kidney disease with stage 1 through stage 4 chronic kidney disease, or unspecified chronic kidney disease; I50.9 Heart failure, unspecified; E08.351 Diabetes mellitus due to underlying condition with proliferative diabetic retinopathy with macular edema; M06.9 Rheumatoid arthritis, unspecified; M25.531 Pain in right wrist; M25.532 Pain in left wrist
CPT/HCPCS: 36415; 80053; 85025; 85652; 86038; 86039; 86140; 86200; 86431

== ENCOUNTER → 2021-07-09 | Outpatient (CLI) | payer BC ==
[2021-07-09 23:27] LABS: ALT 17 U/L (8-44); AST 16 U/L (13-35); African American GFR (CKD) 67.6 (60.0-200.0); Albumin 3.6 g/dL (3.8-4.9); Albumin/Globulin Ratio 0.92 (1.60-3.17); Alkaline Phosphatase 68 U/L (41-126); BUN/Creat Ratio 26.44 Ratio (12.00-20.00); Blood Urea Nitrogen 27.5 mg/dL (9.0-27.0); Carbon Dioxide 21.8 mmol/L (20.0-27.5); Chloride 99 mmol/L (96-109); Chol/HDL Ratio 3.04 Ratio; Globulin 3.9 g/dL (1.6-3.3); Glucose 137 mg/dL (70-110); LDL Cholesterol,Calculated 43.1 mg/dL (0.0-131.0); Non-African American GFR(CKD) 58.4 (60.0-200.0); Potassium 4.1 mmol/L (3.5-5.5); Sodium 136 mmol/L (135-145); Total Protein 7.5 g/dL (6.2-8.2)
== END | disposition home or self-care (01) ==
LOC: LABWHC1 11:02
PROVIDERS: ATTEND Internal Medicine Interventional Cardiology
DX: E78.2 Mixed hyperlipidemia (principal)
CPT/HCPCS: 36415; 80053; 80061

== ENCOUNTER → 2021-07-22 | Outpatient (CLI) | payer BC ==
[2021-07-22 15:12] LABS: Appearance,Urine Clear (Clear); Bilirubin,Urine Negative (Negative); Blood,Urine Negative (Negative); Color,Urine Light Yellow; Glucose,Urine (UA) 4+ (Negative); Ketones,Urine Negative (Negative); Leukocyte Esterase,Urine Negative (Negative); Nitrite,Urine Negative (Negative); Protein,Urine 1+ (Negative); RBC,Urine 2 /hpf (0-5); Squamous Epithelial Cell,Urine 2 /hpf (0-4); Urobilinogen,Urine <2.0 mg/dL (<2.0); WBC,Urine 1 /hpf (0-5)
[2021-07-22 15:24] LABS: Creatinine,Urine Random 28.8 mg/dL; Protein/Creatinine Ratio,Urine 3.368
[2021-07-22 18:30] LABS: Basophils # (A) 0.03 X 10*3/uL (0.00-0.10); Basophils % (A) 0.4 %; Eosinophils # (A) 0.05 X 10*3/uL (0.04-0.35); Eosinophils % (A) 0.7 %; HCT 37.8 % (37.2-46.3); HGB 11.2 g/dL (12.0-15.0); Immature Grans, Automated 0.8 %; Lymphocytes # (A) 2.16 X 10*3/uL (0.90-5.00); Lymphocytes % (A) 29.9 %; MCH 25.6 pg (27.0-32.0); MCHC 29.6 g/dL (32.0-37.0); MCV 86.5 fL (80.0-97.0); Mean Platelet Volume 9.9 fL (9.5-12.2); Monocytes # (A) 0.49 X 10*3/uL (0.20-1.00); Monocytes % (A) 6.8 %; NRBC Per 100 WBC 0 /100 WBCS (0.0-0.0); Neutrophils # (A) 4.44 X 10*3/uL (1.80-7.70); Neutrophils % (A) 61.4 %; Platelet Count 255 X 10*3/uL (140-440); RBC 4.37 X 10*6/uL (4.10-5.20); RDW 17.7 % (11.5-14.5); WBC 7.23 X 10*3/uL (4.50-10.00)
[2021-07-22 21:42] LABS: Magnesium 2.2 mg/dL (1.5-2.4); Phosphorus 3.9 mg/dL (2.4-5.1)
[2021-07-22 21:44] LABS: % Iron Saturation 20.34 (12.00-45.00); African American GFR (CKD) 54.7 (60.0-200.0); BUN/Creat Ratio 21.37 Ratio (12.00-20.00); Blood Urea Nitrogen 26.5 mg/dL (9.0-27.0); Calcium 9.3 mg/dL (8.7-10.3); Carbon Dioxide 25.2 mmol/L (20.0-27.5); Non-African American GFR(CKD) 47.2 (60.0-200.0); Potassium 4.6 mmol/L (3.5-5.5)
[2021-07-22 22:17] LABS: Albumin 3.7 g/dL (3.8-4.9)
== END | disposition home or self-care (01) ==
LOC: LABWHC1 14:33
PROVIDERS: ATTEND Nurse Practitioner Family
DX: N25.81 Secondary hyperparathyroidism of renal origin (principal); N18.32 Chronic kidney disease, stage 3b; N39.0 Urinary tract infection, site not specified; D64.9 Anemia, unspecified; R80.9 Proteinuria, unspecified
CPT/HCPCS: 36415; 80048; 81001; 82040; 82306; 82570; 82728; 83540; 83550; 83735; 83970; 84100; 84156; 85025

== ENCOUNTER → 2021-08-11 | Outpatient (CLI) | payer BC ==
--- NOTE | 2021-08-11 20:47 | CT ---
EXAMINATION TYPE: CT chest wo con DATE OF EXAM: 08/11/2021 INDICATION: h/o pneumonia, MANAN CT DLP: 514.7 mGy.cm Automated Exposure Control for Dose Reduction was Utilized. TECHNIQUE AND CONTRAST: CT scan of the chest without IV contrast administration. COMPARISON: X-ray dated 07/05/2019 FINDINGS: Bilateral predominantly lower lobar pulmonary reticulations with adjacent slightly nodular thickening of the pleura without definite pleural mass or calcification. This is nonspecific. 4 mm nodule is se en in the right lower lobe (image #28, series 4). Minimal atelectasis seen in the lung bases. 2 mm no dule is seen in the left lower lobe (image #31, series 4). Unremarkable lungs otherwise. Patent central airways. No pleural or pericardial effusion. Increased c ardiac size, please correlate with echocardiographic results. Scattered arterial and coronary atheros clerotic calcification. The pulmonary trunk measures 3.4 cm suggestive of pulmonary hypertension. Subcentimeter mediastinal lymph nodes with no pathologically enlarged lymph nodes in the chest. Mayra slick calcified lesion is seen in the left thyroid lobe measuring 13 mm, for correlation with thyroid ultrasound results. Unremarkable upper abdomen. Degenerative changes of the thoracic spine. No gross aggressive bone lesion. IMPRESSION: Nonspecific diffuse slightly nodular pleural thickening mainly at the lung bases as described above. Associated few scattered pulmonary nodules measuring up to 4 mm. No gross pleural mass or calcificati on. Recommend precautionary follow-up CT scan in 3 months for reassessment. Other incidental findings and recommendations as detailed above.
== END | disposition home or self-care (01) ==
LOC: RADCTMAIN 13:43
PROVIDERS: ATTEND Internal Medicine Rheumatology
DX: R06.00 Dyspnea, unspecified (principal); E11.9 Type 2 diabetes mellitus without complications
CPT/HCPCS: 36415; 71250; 82565; 84520

== ENCOUNTER → 2021-09-22 | Outpatient (CLI) | payer BC ==
--- NOTE | 2021-09-22 13:42 | XR ---
Bilateral knees HISTORY: Pain 3 views of each knee submitted, correlation prior exam left knee 12/03/2020 Tricompartmental marginal spurring is present. Bone mineralization is reduced. Alignment is maintaine d. Suprapatellar increased attenuation is consistent with joint effusion on the right. There are dens e vascular calcifications present. Postop changes noted to the left patella is soft tissue swelling i s noted on the left. IMPRESSION: Osteoarthritis.
--- NOTE | 2021-09-22 13:55 | US ---
EXAMINATION TYPE: US abdomen complete DATE OF EXAM: 09/22/2021 COMPARISON: NONE CLINICAL HISTORY: 60-year-old female R11.10 VOMITING, UNSPECIFIED. Jaundice, nausea TECHNIQUE: Multiple sonographic images of the abdomen are obtained. FINDINGS: EXAM MEASUREMENTS: Liver Length: 17.1 cm Gallbladder Wall: .2 cm CBD: .4 cm Spleen: 12.3 cm Right Kidney: 10.3 x 4.1 x 4.5 cm Left Kidney: 10.4 x 5.2 x 4.7 cm Pancreas: Tail obscured by overlying bowel gas. Visualized portions show no gross abnormality. Liver: Borderline enlarged at 17.1 cm. Overall normal, homogeneous appearance. Gallbladder: wnl Evidence for sonographic Garvin's sign: No CBD: wnl Spleen: A few scattered calcified granulomas are noted. Right Kidney: wnl Left Kidney: wnl Upper IVC: wnl Abd Aorta: wnl IMPRESSION: No gallstones or biliary ductal dilatation. Borderline liver size at 17.1 cm. A few scattered calcifi ed granulomas in the spleen incidentally noted.
== END | disposition home or self-care (01) ==
LOC: RADUSWWP 12:26
PROVIDERS: ATTEND Family Medicine
DX: R11.10 Vomiting, unspecified (principal); M17.12 Unilateral primary osteoarthritis, left knee; L92.8 Other granulomatous disorders of the skin and subcutaneous tissue
CPT/HCPCS: 76700

== ENCOUNTER → 2021-10-01 | Outpatient (CLI) | payer BC ==
[2021-10-01 17:38] LABS: Creatinine,Urine Random 118.7 mg/dL
[2021-10-01 17:58] LABS: Protein/Creatinine Ratio,Urine 3.37
[2021-10-01 22:29] LABS: HCT 32.4 % (37.2-46.3); HGB 9.9 g/dL (12.0-15.0); MCH 23.7 pg (27.0-32.0); MCHC 30.6 g/dL (32.0-37.0); MCV 77.7 fL (80.0-97.0); Mean Platelet Volume 11.7 fL (9.5-12.2); NRBC Per 100 WBC 0 /100 WBCS (0.0-0.0); Platelet Count 177 X 10*3/uL (140-440); RBC 4.17 X 10*6/uL (4.10-5.20); RDW 14.8 % (11.5-14.5); WBC 5.48 X 10*3/uL (4.50-10.00)
[2021-10-01 22:35] LABS: African American GFR (CKD) 70.9 (60.0-200.0); Anion Gap 11.6 mmol/L (10.00-18.00); BUN/Creat Ratio 20.5 Ratio (12.00-20.00); Blood Urea Nitrogen 20.5 mg/dL (9.0-27.0); Calcium 8.7 mg/dL (8.7-10.3); Carbon Dioxide 22.4 mmol/L (20.0-27.5); Magnesium 2.1 mg/dL (1.5-2.4); Non-African American GFR(CKD) 61.2 (60.0-200.0); Phosphorus 4.5 mg/dL (2.4-5.1)
[2021-10-01 23:01] LABS: % Iron Saturation 5.33 (12.00-45.00)
[2021-10-01 23:08] LABS: Albumin 3.1 g/dL (3.8-4.9)
[2021-10-01 23:27] LABS: Basophils # (A) 0.03 X 10*3/uL (0.00-0.10); Basophils % (A) 0.5 %; Eosinophils # (A) 0.03 X 10*3/uL (0.04-0.35); Eosinophils % (A) 0.5 %; Immature Grans, Automated 1.1 %; Lymphocytes # (A) 0.95 X 10*3/uL (0.90-5.00); Lymphocytes % (A) 17.3 %; Monocytes # (A) 0.23 X 10*3/uL (0.20-1.00); Monocytes % (A) 4.2 %; Neutrophils # (A) 4.18 X 10*3/uL (1.80-7.70); Neutrophils % (A) 76.4 %
[2021-10-02 00:54] LABS: Appearance,Urine Cloudy (Clear); Bilirubin,Urine Negative (Negative); Blood,Urine Negative (Negative); Color,Urine Dark Yellow (Yellow); Ketones,Urine Negative (Negative); Nitrite,Urine Negative (Negative); PH, Urine 5.5 (5.0-8.0); Specific Gravity,Urine 1.031 (1.001-1.030)
[2021-10-02 01:19] LABS: Bacteria,Urine 2+ /HPF (None Seen)
== END | disposition home or self-care (01) ==
LOC: LABWHC1 16:14
PROVIDERS: ATTEND Nurse Practitioner Family
DX: E21.3 Hyperparathyroidism, unspecified (principal); E55.9 Vitamin D deficiency, unspecified; N39.0 Urinary tract infection, site not specified; D64.9 Anemia, unspecified; R80.9 Proteinuria, unspecified
CPT/HCPCS: 36415; 80048; 81001; 82040; 82306; 82570; 82728; 83540; 83550; 83735; 83970; 84100; 84156; 84550; 85025

== ENCOUNTER → 2021-10-06 | Outpatient (CLI) | payer BC ==
[2021-10-06 14:43] LABS: Basophils % (A) 1 %; Eosinophils # (A) 0.1 k/uL (0-0.7); Eosinophils % (A) 1 %; HCT 32.6 % (34.0-46.0); HGB 9.8 gm/dL (11.4-16.0); Hypochromasia Marked; Lymphocytes # (A) 0.7 k/uL (1.0-4.8); Lymphocytes % (A) 17 %; MCH 23.9 pg (25.0-35.0); MCV 79.5 fL (80.0-100.0); Mean Platelet Volume 7.4; Monocytes # (A) 0.1 k/uL (0-1.0); Monocytes % (A) 3 %; Neutrophils # (A) 3.3 k/uL (1.3-7.7); Neutrophils % (A) 77 %; Platelet Count 336 k/uL (150-450); Poikilocytosis Slight; WBC 4.3 k/uL (3.8-10.6)
[2021-10-06 14:56] LABS: Potassium 4.2 mmol/L (3.5-5.1)
[2021-10-06 15:11] LABS: INR 1.1 (<1.2); Partial Thromboplastin Time 42.6 sec (22.0-30.0); Prothrombin Time 11.4 sec (9.0-12.0)
== END | disposition home or self-care (01) ==
LOC: LABWHC1 13:47
PROVIDERS: ATTEND Internal Medicine Nephrology
DX: R80.9 Proteinuria, unspecified (principal)
CPT/HCPCS: 80051; 82565; 84520; 85025; 85610; 85730

== ENCOUNTER 2021-10-08 08:41 | Day surgery (SDC) | payer BC ==
[2021-10-08 09:34] VITALS: RESP 16; TEMP 98.2
[2021-10-08] MEDS ORDERED: ALPRAZolam 0.5 MG TAB PO STA (09:43)
[2021-10-08 11:41] LABS: Glucose,Whole Blood 135 mg/dL (75-99)
--- NOTE | 2021-10-08 12:25 | CT ---
EXAMINATION TYPE: CT biopsy renal LT DATE OF EXAM: 10/08/2021 COMPARISON: NONE HISTORY: Proteinuria, left renal biopsy CT DLP: 2341 mGycm The procedure was explained to the patient. The risks, complications, benefits, and alternatives wer e discussed and any questions were answered. Informed consent was obtained. Patient was placed pron e on the CT table and prepped and draped in the usual sterile fashion. Utilizing CT guidance, an 18 gauge core biopsy needle access into the left renal cortex was achieved and three 18 gauge core samples were obtained. The patient was stable throughout the procedure and r emained stable upon discharge. IMPRESSION: Successful 18 gauge core biopsy of the kidney function.
[2021-10-08 14:42] VITALS: BP 128/63; PULSE 81
== END 2021-10-08 15:26 | disposition home or self-care (01) ==
LOC: RADPROMAIN 08:41
PROVIDERS: ATTEND Internal Medicine Nephrology
DX: R80.9 Proteinuria, unspecified (principal); I12.9 Hypertensive chronic kidney disease with stage 1 through stage 4 chronic kidney disease, or unspecified chronic kidney disease; E11.22 Type 2 diabetes mellitus with diabetic chronic kidney disease; N18.9 Chronic kidney disease, unspecified; N17.9 Acute kidney failure, unspecified
CPT/HCPCS: 36415; 77012; 82947; 86850; 86900; 86901

== ENCOUNTER 2021-10-24 13:33 | Inpatient (IN) | payer BC ==
[2021-10-24] MEDS ORDERED: SODIUM CHLORIDE 0.9% 1,000 ML IV STA (13:46)
--- NOTE | 2021-10-24 14:01 | ED ---
General Adult HPI - General Source: patient Mode of arrival: wheelchair Limitations: no limitations <ElvinelLeandro Ashley - Last Filed: 10/24/21 14:57> <Dusty Arshad - Last Filed: 10/24/21 16:17> - General Chief complaint: Dizziness Stated complaint: Dizziness/blurred vision/hypotensive Time Seen by Provider: 10/24/21 13:41 - History of Present Illness Initial comments: Dictation was produced using [employer] dictation software. please excuse any grammatical, word or spelling errors. Chief Complaint: 60-year-old male presents to the emergency department for shortness of breath and dizziness. History of Present Illness: Is a 60-year-old female presents to the emergency department for shortness of breath and dizziness. Patient has been having mild symptoms for the last several days however today was when he was significantly worse. Patient's history of diabetes, dyslipidemia hypertension myocardial infarction. She has history of coronary artery stent. Patient denies any pain complaints. She states that she went to go visit her father at one of the local nursing homes when all of a sudden her symptoms were significantly more noticeable. Patient denies any history of blood clots. She denies any lower extremity symptoms. She denies any cough or constitutional symptoms. Patient has any recent changes to her medications. She states she's been compliant with her blood pressure meds. She's been on these medications for the last several months without any acute issues. The ROS documented in this emergency department record has been reviewed and confirmed by me. Those systems with pertinent positive or negative responses have been documented in the HPI. All other systems are other negative and/or noncontributory. PHYSICAL EXAM: General Impression: Alert and oriented x3, not in acute distress HEENT: Normocephalic atraumatic, extra-ocular movements intact, pupils equal and reactive to light bilaterally, mucous membranes moist. Cardiovascular: Heart regular rate and rhythm Chest: Dyspneic, mild retractions Abdomen: abdomen soft, non-tender, non-distended, no organomegaly Musculoskeletal: Pulses present and equal in all extremities, no peripheral edema Motor: no focal deficits noted Neurological: CN II-XII grossly intact, no focal motor or sensory deficits noted Skin: Intact with no visualized rashes Psych: Normal affect and mood ED course: 60-year-old female presents to the emergency department for dizziness and shortness of breath. Patient does appear to be dyspneic at the bedside. Signs upon arrival shows heart rate of 122, blood pressure of 76/46. Repeat blood pressure performed at the bedside was 93/56. Patient is on multiple blood pressure medications. X-ray shows mild subsegmental atelectasis without a change to old exam. Otherwise no acute processes. CBC is unremarkable. Venous blood gas shows pH is 7.47 with a pCO2 of 34. Metabolic panel shows sodium 1:30, chloride of 96, so very slight elevation of renal markers. Rest of metabolic panel is unremarkable. Prematurity peptide is 1070. EKG interpretation: Ventricular rate 76, sinus rhythm,. 152, care is 99, QTc 435. No MT prolongation, no QTC prolongation, no ST or T-wave changes noted. Overall, this EKG is unremarkable. Laboratory evaluation obtained. CBC is unremarkable. Hemoglobin is 9.3. Patient's hemoglobin is usually around this level. He has blood gas shows pH of 7.4 with a pCO2 of 34 and a normal bicarb. No concern for metabolic acidosis causing respiratory issues. Metabolic panel shows some 1:30. No gap acidosis. Renal markers her baseline. Troponin is 0.012, prematurity peptide is elevated at 1000. Chart review was performed showing no previous echocardiograms. Patient reevaluated at bedside at 2:45 PM and still does appear to be mildly dyspneic. Repeat vitals are much improved. Patient has any swelling to her legs. She states her symptoms are worse at night when she is lying flat. She states that she feels better when she lies flat. Pending Cepheid and d-dimer. Patient care will be signed out to Dr. Arshad. (Leandro Rosales) - Related Data Home Medications Medication Instructions Recorded Confirmed Aspirin EC [Ecotrin Low Dose] 81 mg PO DAILY 06/20/20 10/24/21 Cholecalciferol [Vitamin D3 (25 25 mcg PO BID 06/20/20 10/24/21 Mcg = 1000 Iu)] DULoxetine HCL [Cymbalta] 60 mg PO DAILY 06/20/20 10/24/21 Insulin Aspart (Niacinamide) 7 units SQ AC-TID MDD 36 units 06/20/20 10/24/21 [Fiasp 100 Unit/ml Flextouch Pen] Insulin Degludec [Tresiba 22 units SQ HS 06/20/20 10/24/21 Flextouch U-200 Pen] Furosemide [Lasix] 20 mg PO Q48H 10/07/20 10/24/21 Empagliflozin [Jardiance] 10 mg PO DAILY 10/01/21 10/24/21 Isosorbide Mononitrate 20 mg PO TID 10/01/21 10/24/21 Metoprolol Tartrate [Lopressor] 50 mg PO BID-W/MEALS 10/01/21 10/24/21 Sacubitril/Valsartan [Entresto 24 1 tab PO BID 10/01/21 10/24/21 mg-26 mg Tablet] Insulin Aspart (Niacinamide) See Protocol SQ AC-TID MDD 36 units 10/24/21 10/24/21 [Fiasp 100 Unit/ml Flextouch Pen] hydrALAZINE HCL [Apresoline] 50 mg PO Q7H 10/24/21 10/24/21 Previous Rx's Medication Instructions Recorded Atorvastatin Calcium [Lipitor] 40 mg PO DAILY #90 tablet 07/05/19 Allergies Allergy/AdvReac Type Severity Reaction Status Date / Time Penicillins Allergy Rash/Hives, Verified 10/24/21 15:02 Difficulty breathing Review of Systems ROS Other: All systems not noted in ROS Statement are negative. <Leandro Rosales - Last Filed: 10/24/21 14:57> ROS Other: All systems not noted in ROS Statement are negative. <Dusty Arshad - Last Filed: 10/24/21 16:17> ROS Statement: Those systems with pertinent positive or pertinent negative responses have been documented in the HPI. Past Medical History Past Medical History: Diabetes Mellitus, Hyperlipidemia, Hypertension, Myocardial Infarction ([place]) Last Myocardial Infarction Date:: december 2019 History of Any Multi-Drug Resistant Organisms: None Reported Past Surgical History: Heart Catheterization With Stent, Hysterectomy, Tonsillectomy Past Anesthesia/Blood Transfusion Reactions: No Reported Reaction Date of Last Stent Placement:: dec 2019 Past Psychological History: No Psychological Hx Reported Smoking Status: Never smoker - Past Family History Father Family Medical History: Diabetes Mellitus <Leandro Rosales - Last Filed: 10/24/21 14:57> General Exam Limitations: no limitations <Leandro Rosales - Last Filed: 10/24/21 14:57> Course <Dusty Arshad - Last Filed: 10/24/21 16:17> Vital Signs 10/24/21 10/24/21 10/24/21 13:37 14:20 14:56 Temperature 98.8 F Pulse Rate 122 H 74 Pulse Rate [ Left Sitting Pulse Oximetery ] Pulse Rate [ Left Standing Pulse Oximetery ] Pulse Rate [ Left Supine Pulse Oximetery ] Respiratory 16 16 17 Rate Blood Pressure 76/46 116/58 Blood Pressure [Right Arm Sitting] Blood Pressure [Right Arm Standing] Blood Pressure [Right Arm Supine] O2 Sat by Pulse 96 98 Oximetry 10/24/21 15:13 Temperature Pulse Rate Pulse Rate [ 79 Left Sitting Pulse Oximetery ] Pulse Rate [ 81 Left Standing Pulse Oximetery ] Pulse Rate [ 76 Left Supine Pulse Oximetery ] Respiratory Rate Blood Pressure Blood Pressure 92/55 [Right Arm Sitting] Blood Pressure 86/49 [Right Arm Standing] Blood Pressure 113/77 [Right Arm Supine] O2 Sat by Pulse Oximetry - Reevaluation(s) Reevaluation #1: 10/24/21 16:10 Patient states that she continues to feel somewhat dizzy and dyspneic, although she admits that her symptoms have improved with ED treatment. Patient denies development of any new symptoms while in the ED. Patient remains alert and breathing comfortably with a normal room air oxygen saturation. Patient and are aware the patient's test results, and they both agree with hospital admission at this time. 10/24/21 16:13 Case, test results and ED management were were discussed with Dr. Dowd. He accepts hospital admission. He has no further recommendations at this time. (Dusty Arshad) EKG Findings - EKG Comments: EKG Findings:: Normal sinus rhythm, ventricular rate of 76 bpm, no ectopy, normal MT and QRS intervals, normal QT interval, normal axis, no ST or T-wave abnormality <Dusty Arshad - Last Filed: 10/24/21 16:17> Medical Decision Making - Lab Data Result diagrams: 10/24/21 13:54 10/24/21 13:54 <Leandro Rosales - Last Filed: 10/24/21 14:57> - Lab Data Result diagrams: 10/24/21 13:54 10/24/21 13:54 <Dusty Arshad - Last Filed: 10/24/21 16:17> - Medical Decision Making Patient symptoms and blood pressure have improved in the ED with IV fluid hydration. Patient is orthostatic by orthostatic vital sign criteria. Patient's CT angiography chest is negative for PE or any significant lung disease. Patient's troponin is within normal limits and her EKG is unremarkable. Given the patient's orthostatics and continued symptoms, will admit the patient to the hospital for observation and continued IV fluid hydra tion. Dr. Dowd has accepted hospital admission. (Dusty Arshad) - Lab Data Lab Results 10/24/21 10/24/21 10/24/21 Range/Units 13:54 13:54 13:54 WBC 4.5 (3.8-10.6) k/uL RBC 3.94 (3.80-5.40) m/uL Hgb 9.3 L (11.4-16.0) gm/dL Hct 29.8 L (34.0-46.0) % MCV 75.7 L (80.0-100.0) fL MCH 23.5 L (25.0-35.0) pg MCHC 31.1 (31.0-37.0) g/dL RDW 16.3 H (11.5-15.5) % Plt Count 388 (150-450) k/uL MPV 7.5 Neutrophils % 74 % Lymphocytes % 21 % Monocytes % 3 % Eosinophils % 2 % Basophils % 1 % Neutrophils # 3.3 (1.3-7.7) k/uL Lymphocytes # 0.9 L (1.0-4.8) k/uL Monocytes # 0.1 (0-1.0) k/uL Eosinophils # 0.1 (0-0.7) k/uL Basophils # 0.0 (0-0.2) k/uL Hypochromasia Moderate Anisocytosis Slight Microcytosis Slight PT (9.0-12.0) sec INR (<1.2) APTT (22.0-30.0) sec D-Dimer (<0.60) mg/L FEU VBG pH (7.31-7.41) VBG pCO2 (37-51) mmHg VBG HCO3 (24-28) mmol/L Sodium 130 L (137-145) mmol/L Potassium 4.9 (3.5-5.1) mmol/L Chloride 96 L (98-107) mmol/L Carbon Dioxide 26 (22-30) mmol/L Anion Gap 8 mmol/L BUN 20 H (7-17) mg/dL Creatinine 1.10 H (0.52-1.04) mg/dL Est GFR (CKD-EPI)AfAm 63 (>60 ml/min/1.73 sqM) Est GFR (CKD-EPI)NonAf 55 (>60 ml/min/1.73 sqM) Glucose 170 H (74-99) mg/dL POC Glucose (mg/dL) (70-110) mg/dL POC Glu Dba Developer ID Plasma Lactic Acid Tello 1.9 (0.7-2.0) mmol/L Calcium 8.4 (8.4-10.2) mg/dL Magnesium 1.8 (1.6-2.3) mg/dL Total Bilirubin 0.5 (0.2-1.3) mg/dL AST 21 (14-36) U/L ALT 10 (4-34) U/L Alkaline Phosphatase 82 (38-126) U/L Troponin I (0.000-0.034) ng/mL NT-Pro-B Natriuret Pep pg/mL Total Protein 6.9 (6.3-8.2) g/dL Albumin 3.0 L (3.5-5.0) g/dL Influenza Type A (PCR) (Not Detectd) Influenza Type B (PCR) (Not Detectd) RSV (PCR) (Not Detectd) SARS-CoV-2 (PCR) (Not Detectd) 10/24/21 10/24/21 10/24/21 Range/Units 13:54 13:54 13:59 WBC (3.8-10.6) k/uL RBC (3.80-5.40) m/uL Hgb (11.4-16.0) gm/dL Hct (34.0-46.0) % MCV (80.0-100.0) fL MCH (25.0-35.0) pg MCHC (31.0-37.0) g/dL RDW (11.5-15.5) % Plt Count (150-450) k/uL MPV Neutrophils % % Lymphocytes % % Monocytes % % Eosinophils % % Basophils % % Neutrophils # (1.3-7.7) k/uL Lymphocytes # (1.0-4.8) k/uL Monocytes # (0-1.0) k/uL Eosinophils # (0-0.7) k/uL Basophils # (0-0.2) k/uL Hypochromasia Anisocytosis Microcytosis PT (9.0-12.0) sec INR (<1.2) APTT (22.0-30.0) sec D-Dimer (<0.60) mg/L FEU VBG pH (7.31-7.41) VBG pCO2 (37-51) mmHg VBG HCO3 (24-28) mmol/L Sodium (137-145) mmol/L Potassium (3.5-5.1) mmol/L Chloride (98-107) mmol/L Carbon Dioxide (22-30) mmol/L Anion Gap mmol/L BUN (7-17) mg/dL Creatinine (0.52-1.04) mg/dL Est GFR (CKD-EPI)AfAm (>60 ml/min/1.73 sqM) Est GFR (CKD-EPI)NonAf (>60 ml/min/1.73 sqM) Glucose (74-99) mg/dL POC Glucose (mg/dL) 175 H (70-110) mg/dL POC Glu Dba Developer ID Kingsley Spencer Plasma Lactic Acid Tello (0.7-2.0) mmol/L Calcium (8.4-10.2) mg/dL Magnesium (1.6-2.3) mg/dL Total Bilirubin (0.2-1.3) mg/dL AST (14-36) U/L ALT (4-34) U/L Alkaline Phosphatase (38-126) U/L Troponin I <0.012 (0.000-0.034) ng/mL NT-Pro-B Natriuret Pep 1070 pg/mL Total Protein (6.3-8.2) g/dL Albumin (3.5-5.0) g/dL Influenza Type A (PCR) (Not Detectd) Influenza Type B (PCR) (Not Detectd) RSV (PCR) (Not Detectd) SARS-CoV-2 (PCR) (Not Detectd) 10/24/21 10/24/21 10/24/21 Range/Units 14:00 14:00 14:14 WBC (3.8-10.6) k/uL RBC (3.80-5.40) m/uL Hgb (11.4-16.0) gm/dL Hct (34.0-46.0) % MCV (80.0-100.0) fL MCH (25.0-35.0) pg MCHC (31.0-37.0) g/dL RDW (11.5-15.5) % Plt Count (150-450) k/uL MPV Neutrophils % % Lymphocytes % % Monocytes % % Eosinophils % % Basophils % % Neutrophils # (1.3-7.7) k/uL Lymphocytes # (1.0-4.8) k/uL Monocytes # (0-1.0) k/uL Eosinophils # (0-0.7) k/uL Basophils # (0-0.2) k/uL Hypochromasia Anisocytosis Microcytosis PT (9.0-12.0) sec INR (<1.2) APTT (22.0-30.0) sec D-Dimer 6.00 H (<0.60) mg/L FEU VBG pH 7.47 H (7.31-7.41) VBG pCO2 34 L (37-51) mmHg VBG HCO3 24 (24-28) mmol/L Sodium (137-145) mmol/L Potassium (3.5-5.1) mmol/L Chloride (98-107) mmol/L Carbon Dioxide (22-30) mmol/L Anion Gap mmol/L BUN (7-17) mg/dL Creatinine (0.52-1.04) mg/dL Est GFR (CKD-EPI)AfAm (>60 ml/min/1.73 sqM) Est GFR (CKD-EPI)NonAf (>60 ml/min/1.73 sqM) Glucose (74-99) mg/dL POC Glucose (mg/dL) (70-110) mg/dL POC Glu Dba Developer ID Plasma Lactic Acid Tello (0.7-2.0) mmol/L Calcium (8.4-10.2) mg/dL Magnesium (1.6-2.3) mg/dL Total Bilirubin (0.2-1.3) mg/dL AST (14-36) U/L ALT (4-34) U/L Alkaline Phosphatase (38-126) U/L Troponin I (0.000-0.034) ng/mL NT-Pro-B Natriuret Pep pg/mL Total Protein (6.3-8.2) g/dL Albumin (3.5-5.0) g/dL Influenza Type A (PCR) Not Detected (Not Detectd) Influenza Type B (PCR) Not Detected (Not Detectd) RSV (PCR) Not Detected (Not Detectd) SARS-CoV-2 (PCR) Not Detected (Not Detectd) 10/24/21 Range/Units 15:32 WBC (3.8-10.6) k/uL RBC (3.80-5.40) m/uL Hgb (11.4-16.0) gm/dL Hct (34.0-46.0) % MCV (80.0-100.0) fL MCH (25.0-35.0) pg MCHC (31.0-37.0) g/dL RDW (11.5-15.5) % Plt Count (150-450) k/uL MPV Neutrophils % % Lymphocytes % % Monocytes % % Eosinophils % % Basophils % % Neutrophils # (1.3-7.7) k/uL Lymphocytes # (1.0-4.8) k/uL Monocytes # (0-1.0) k/uL Eosinophils # (0-0.7) k/uL Basophils # (0-0.2) k/uL Hypochromasia Anisocytosis Microcytosis PT 11.4 (9.0-12.0) sec INR 1.1 (<1.2) APTT 36.9 H (22.0-30.0) sec D-Dimer (<0.60) mg/L FEU VBG pH (7.31-7.41) VBG pCO2 (37-51) mmHg VBG HCO3 (24-28) mmol/L Sodium (137-145) mmol/L Potassium (3.5-5.1) mmol/L Chloride (98-107) mmol/L Carbon Dioxide (22-30) mmol/L Anion Gap mmol/L BUN (7-17) mg/dL Creatinine (0.52-1.04) mg/dL Est GFR (CKD-EPI)AfAm (>60 ml/min/1.73 sqM) Est GFR (CKD-EPI)NonAf (>60 ml/min/1.73 sqM) Glucose (74-99) mg/dL POC Glucose (mg/dL) (70-110) mg/dL POC Glu Dba Developer ID Plasma Lactic Acid Tello (0.7-2.0) mmol/L Calcium (8.4-10.2) mg/dL Magnesium (1.6-2.3) mg/dL Total Bilirubin (0.2-1.3) mg/dL AST (14-36) U/L ALT (4-34) U/L Alkaline Phosphatase (38-126) U/L Troponin I (0.000-0.034) ng/mL NT-Pro-B Natriuret Pep pg/mL Total Protein (6.3-8.2) g/dL Albumin (3.5-5.0) g/dL Influenza Type A (PCR) (Not Detectd) Influenza Type B (PCR) (Not Detectd) RSV (PCR) (Not Detectd) SARS-CoV-2 (PCR) (Not Detectd) - Radiology Data Chest x-ray: Minimal subsegmental atelectasis left lung base and pleural reaction without much change compared to old exam. Normal heart. [ CT angiography chest with IV contrast: No evidence of pulmonary embolism. Mild cardiomegaly. Mild atelectasis of the lung bases. (Dusty Arshad) Disposition <Leandro Rosales - Last Filed: 10/24/21 14:57> Is patient prescribed a controlled substance at d/c from ED?: No Time of Disposition: 16:17 <Dusty Arshad - Last Filed: 10/24/21 16:17> Clinical Impression: Dizziness, Dyspnea, Orthostatic dizziness Disposition: ADMITTED IP TO THIS HOSP Condition: Stable Referrals: Shade Clemens MD [Primary Care Provider] - 1-2 days
[2021-10-24 14:02] LABS: Glucose,Whole Blood 175 mg/dL (70-110)
[2021-10-24 14:06] LABS: Anisocytosis Slight; Basophils % (A) 1 %; Eosinophils # (A) 0.1 k/uL (0-0.7); Eosinophils % (A) 2 %; HCT 29.8 % (34.0-46.0); HGB 9.3 gm/dL (11.4-16.0); Hypochromasia Moderate; Lymphocytes # (A) 0.9 k/uL (1.0-4.8); Lymphocytes % (A) 21 %; MCH 23.5 pg (25.0-35.0); MCHC 31.1 g/dL (31.0-37.0); MCV 75.7 fL (80.0-100.0); Mean Platelet Volume 7.5; Microcytosis Slight; Monocytes # (A) 0.1 k/uL (0-1.0); Monocytes % (A) 3 %; Neutrophils # (A) 3.3 k/uL (1.3-7.7); Neutrophils % (A) 74 %; Platelet Count 388 k/uL (150-450); RBC 3.94 m/uL (3.80-5.40); RDW 16.3 % (11.5-15.5); WBC 4.5 k/uL (3.8-10.6)
[2021-10-24 14:24] LABS: Calcium 8.4 mg/dL (8.4-10.2); Magnesium 1.8 mg/dL (1.6-2.3); Potassium 4.9 mmol/L (3.5-5.1); Total Bilirubin 0.5 mg/dL (0.2-1.3); Total Protein 6.9 g/dL (6.3-8.2)
[2021-10-24 14:31] LABS: VBG PH 7.47 (7.31-7.41)
--- NOTE | 2021-10-24 14:32 | XR ---
EXAMINATION TYPE: XR chest 1V portable DATE OF EXAM: 10/24/2021 COMPARISON: 07/05/2019 HISTORY: Dizziness TECHNIQUE: Single view FINDINGS: Heart is normal. Lungs are clear of infiltrate. There are small linear density left lateral lung base. There are chest leads. IMPRESSION: Minimal subsegmental atelectasis left lung base and pleural reaction without much change compared to old exam. Normal heart.
[2021-10-24] MEDS ORDERED: SODIUM CHLORIDE 0.9% 1,000 ML IV ONE (15:09)
[2021-10-24 15:49] LABS: INR 1.1 (<1.2); Partial Thromboplastin Time 36.9 sec (22.0-30.0); Prothrombin Time 11.4 sec (9.0-12.0)
--- NOTE | 2021-10-24 15:52 | CT ---
EXAMINATION TYPE: CT chest angio for PE DATE OF EXAM: 10/24/2021 COMPARISON: None HISTORY: SOB, elevated d-dimer CT DLP: 387.9 mGycm Automated exposure control for dose reduction was used. CONTRAST: Performed with IV Contrast, patient injected with 80 mL of Isovue 370. There are Three-D postprocessed images. There is some patchy atelectasis at the lung bases. No pleural effusion. Heart is enlarged. No perica rdial effusion. There is no evidence of filling defect in the pulmonary arteries. There is no mediastinal adenopathy. There are no hilar masses. The bony thorax is intact. Sternum is intact. IMPRESSION: No evidence of pulmonary embolism. Mild cardiomegaly. Mild atelectasis at the lung bases.
[2021-10-24] MEDS: SODIUM CHLORIDE 0.9% 1,000 ML IV SCH (16:35)
[2021-10-24 16:55] LABS: Glucose,Whole Blood 155 mg/dL (70-110)
[2021-10-24 20:05] LABS: Glucose,Whole Blood 168 mg/dL (70-110)
[2021-10-25] MEDS: SODIUM CHLORIDE 0.9% 1,000 ML IV SCH (03:55)
[2021-10-25 07:29] LABS: Glucose,Whole Blood 148 mg/dL (70-110)
[2021-10-25] MEDS: NON FORMULARY DRUG (Empagliflozin [Jardiance] 10 MG Tablet) PO SCH (08:47)
[2021-10-25] MEDS: ASPIRIN 81 MG PO SCH (09:06)
[2021-10-25] MEDS: DULoxetine HCL 60 MG CAPSULE.DR PO SCH (09:06)
[2021-10-25] MEDS: ATORVASTATIN 40 MG TAB PO SCH (09:06)
[2021-10-25] MEDS: ACETAMINOPHEN TAB 325 MG TAB PO PRN (09:12)
[2021-10-25 10:55] LABS: Basophils # (A) 0.01 X 10*3/uL (0.00-0.10); Basophils % (A) 0.3 %; Eosinophils # (A) 0.04 X 10*3/uL (0.04-0.35); Eosinophils % (A) 1.3 %; HCT 28.1 % (37.2-46.3); HGB 8.3 g/dL (12.0-15.0); Immature Grans, Automated 0.7 %; Lymphocytes # (A) 0.85 X 10*3/uL (0.90-5.00); Lymphocytes % (A) 28.1 %; MCH 22.6 pg (27.0-32.0); MCHC 29.5 g/dL (32.0-37.0); MCV 76.4 fL (80.0-97.0); Mean Platelet Volume 9.3 fL (9.5-12.2); Monocytes # (A) 0.18 X 10*3/uL (0.20-1.00); Monocytes % (A) 5.9 %; NRBC Per 100 WBC 0 /100 WBCS (0.0-0.0); Neutrophils # (A) 1.93 X 10*3/uL (1.80-7.70); Neutrophils % (A) 63.7 %; Platelet Count 352 X 10*3/uL (140-440); RBC 3.68 X 10*6/uL (4.10-5.20); RDW 16.5 % (11.5-14.5); WBC 3.03 X 10*3/uL (4.50-10.00)
[2021-10-25 12:17] LABS: Glucose,Whole Blood 223 mg/dL (70-110)
--- NOTE | 2021-10-25 12:45 | P.NPCON ---
History of Present Illness - Reason for Consult Consult date: 10/25/21 hyponatremia - Chief Complaint Dizziness - History of Present Illness Seen for hyponatremia, CKD Had Kidney Bx 10/08/21; showed Diab Neph+ Imm Complex dep in mesangium suggestive of autoimmune or Inf path 08/11 Glom had global Sclerosis Imm flour showed 2-3+ Igm mesangial dep, C3 1-2 +. faint [place] and Lambda Cr DM age 30 with Ret and denies neuropathy Dizziness described as Gait intability with past Knee imjury 1 yr ago No fainting or vertigo BS controlled History of Present Illness: Is a 60-year-old female presents to the emergency department for shortness of breath and dizziness. Patient has been having mild symptoms for the last several days however today was when he was significantly worse. Patient's history of diabetes, dyslipidemia hypertension myocardial infarction. She has history of coronary artery stent. Patient denies any pain complaints. She states that she went to go visit her father at one of the local nursing homes when all of a sudden her symptoms were significantly more noticeable. Patient denies any history of blood clots. She denies any lower extremity symptoms. She denies any cough or constitutional symptoms. Patient has any recent changes to her medications. She states she's been compliant with her blood pressure meds. She's been on these medications for the last several months without any acute issues. Past Medical History Past Medical History: Diabetes Mellitus, Hyperlipidemia, Hypertension, Myocardial Infarction ([place]) Last Myocardial Infarction Date:: december 2019 History of Any Multi-Drug Resistant Organisms: None Reported Past Surgical History: Heart Catheterization With Stent, Hysterectomy, Tons illectomy Past Anesthesia/Blood Transfusion Reactions: No Reported Reaction Date of Last Stent Placement:: dec 2019 Past Psychological History: No Psychological Hx Reported Smoking Status: Never smoker Past Alcohol Use History: None Reported Past Drug Use History: None Reported - Past Family History Father Family Medical History: Diabetes Mellitus Medications and Allergies Home Medications Medication Instructions Recorded Confirmed Type Atorvastatin Calcium [Lipitor] 40 mg PO DAILY #90 tablet 07/05/19 10/24/21 Rx Aspirin EC [Ecotrin Low Dose] 81 mg PO DAILY 06/20/20 10/24/21 History Cholecalciferol [Vitamin D3 (25 25 mcg PO BID 06/20/20 10/24/21 History Mcg = 1000 Iu)] DULoxetine HCL [Cymbalta] 60 mg PO DAILY 06/20/20 10/24/21 History Insulin Aspart (Niacinamide) 7 units SQ AC-TID MDD 36 units 06/20/20 10/24/21 History [Fiasp 100 Unit/ml Flextouch Pen] Insulin Degludec [Tresiba 22 units SQ HS 06/20/20 10/24/21 History Flextouch U-200 Pen] Furosemide [Lasix] 20 mg PO Q48H 10/07/20 10/24/21 History Empagliflozin [Jardiance] 10 mg PO DAILY 10/01/21 10/24/21 History Isosorbide Mononitrate 20 mg PO TID 10/01/21 10/24/21 History Metoprolol Tartrate [Lopressor] 50 mg PO BID-W/MEALS 10/01/21 10/24/21 History Sacubitril/Valsartan [Entresto 24 1 tab PO BID 10/01/21 10/24/21 History mg-26 mg Tablet] Insulin Aspart (Niacinamide) See Protocol SQ AC-TID MDD 36 units 10/24/21 10/24/21 History [Fiasp 100 Unit/ml Flextouch Pen] hydrALAZINE HCL [Apresoline] 50 mg PO Q7H 10/24/21 10/24/21 History Allergies Allergy/AdvReac Type Severity Reaction Status Date / Time Penicillins Allergy Rash/Hives, Verified 10/24/21 15:02 Difficulty breathing Physical Exam Vitals: Vital Signs Temp Pulse Pulse Pulse Pulse Pulse Resp 10/25/21 09:20 18 10/25/21 07:00 98.2 F 96 18 10/25/21 01:05 98.2 F 92 16 10/24/21 19:03 98.0 F 78 16 10/24/21 18:02 98.2 F 81 18 10/24/21 16:36 77 14 10/24/21 15:13 79 81 76 10/24/21 14:56 17 10/24/21 14:20 74 16 10/24/21 13:37 98.8 F 122 H 16 BP BP BP BP Pulse Ox 10/25/21 09:20 10/25/21 07:00 145/80 97 10/25/21 01:05 143/77 99 10/24/21 19:03 120/70 96 10/24/21 18:02 120/63 96 10/24/21 16:36 111/65 98 10/24/21 15:13 92/55 86/49 113/77 10/24/21 14:56 10/24/21 14:20 116/58 98 10/24/21 13:37 76/46 96 Intake and Output 10/24/21 10/25/21 10/25/21 22:59 06:59 14:59 Intake Total 240 Output Total 700 Balance -700 240 Intake: Oral 240 Output: Urine 700 Other: # Voids 1 1 Weight 80.739 kg PHYSICAL EXAM: General Impression: Alert and oriented x3, not in acute distress HEENT: Normocephalic atraumatic, extra-ocular movements intact, pupils equal and reactive to light bilaterally, mucous membranes moist. Cardiovascular: Heart regular rate and rhythm Chest: Dyspneic, mild retractions Abdomen: abdomen soft, non-tender, non-distended, no organomegaly Musculoskeletal: Pulses present and equal in all extremities, no peripheral edema Motor: no focal deficits noted Neurological: CN II-XII grossly intact, no focal motor or sensory deficits noted Results - Lab Results Most recent lab results Calcium 8.4 mg/dL (8.4-10.2) 10/24/21 13:54 Phosphorus 3.6 mg/dL (2.4-5.1) 10/25/21 06:52 Magnesium 1.8 mg/dL (1.6-2.3) 10/24/21 13:54 10/25/21 06:52 10/24/21 13:54 Assessment and Plan Assessment: Impression 1. CKD III, with Bx proven Diab Neph + Imm dep in mesangium, Cr stable at 1.1 2. Gait intstability , not dizziness ? 3. DM age 30 4. Anemia with Iron Def on OPD Iron infusion 2/2 done 5. Hyponatermia sec to CKD, and High BS 6. HTN with significant Postural frop 153/76 HR: 96,supine and standing 100/66 HR: 98 Plan; 1. Agree with NS 75/hr 2. redo Ortho chnages 3. avoid Hypotension, use standing BP target of 120 to reduce chances of fall 4. Aranesp 40 Mics Q week as anemia wors ein spite of IV IRON 5. PT 6. cardiology eval Thanks fr consult, will FU
[2021-10-25 17:22] LABS: Glucose,Whole Blood 209 mg/dL (70-110)
[2021-10-25] MEDS: INSULIN ASPART (NovoLOG) 100 UNIT/ML VIAL SQ SCH ×2 (17:40→21:40)
[2021-10-25] MEDS ORDERED: ONDANSETRON 4 MG/2 ML VIAL IVP PRN (19:58)
[2021-10-25 20:51] LABS: Glucose,Whole Blood 174 mg/dL (70-110)
[2021-10-26] MEDS: ACETAMINOPHEN TAB 325 MG TAB PO PRN (03:36)
[2021-10-26] MEDS: SODIUM CHLORIDE 0.9% 1,000 ML IV SCH ×2 (04:28→07:45)
--- NOTE | 2021-10-26 07:33 | P.HPIM ---
History of Present Illness Date of service: Patient seen and examined by me at bedside on 10/25/2021. This is a pleasant 60 years old female with past medical history of Diabetes mellitus, hypertension, hyperlipidemia, coronary artery disease status post sten t Patient states she came because of dizziness and blurred vision that is been going on for about 2 weeks but yesterday she's been having shortness of breath so she decided to come to emergency room, she checked her blood pressure was lower than usual On admission patient was hypotensive 76/46, she received also IV fluid, also she has evidence of postural hypotension documented in the chart. Patient since once her blood pressure cuff corrected both her dizziness and blurred vision this appeared and now she is back to her normal self, also her shortness of breath improved and now she is breathing quietly, she had some mild headache about 4/10 in earlier but Tylenol care of it and now is completely gone. She denies any further dizziness or weakness or numbness. No blurred vision and she thinks her vision is back to normal. No slurred speech or difficulty swallowing. So denies chest pain or dyspnea or coughing. No abdominal pain or nausea vomiting or diarrhea. Patient reports low appetite for the last few weeks. She denies smoking, alcohol or illicit drugs. Labs reviewed, WBC 4.5 and 3.0, hemoglobin 9.3 and 8.3, platelet count 388 and 352, with evidence of hemoglobin delusion D-dimer was elevated at 6.0, INR is 1.1 Sodium 1:30, creatinine 1.1, liver enzymes not elevated. Troponin less than 0.012. ProBNP is 1070 coronavirus, influenza virus are not detected CTA of the chest showing no evidence of pulmonary embolism, mild cardiomegaly and mild atelectasis of the lung bases Chest x-ray: Negative for acute process EKG showing normal sinus rhythm at [address]-T changes, QTC is 435 Patient received IV fluid and continue to normal sinus 75 mL/h emergency room to her home dose of aspirin. Review of Systems Review of systems CONSTITUTIONAL: No fever, no malaise, no fatigue. HEENT: No recent visual problems or hearing problems. Denied any sore throat. CARDIOVASCULAR: No orthopnea, PND, no palpitations, no syncope. PULMONARY: No shortness of breath, no cough, no hemoptysis. GASTROINTESTINAL: No diarrhea, no nausea, no vomiting, no abdominal pain. Normoactive bowel sounds. NEUROLOGICAL: No headaches, no weakness, no numbness. HEMATOLOGICAL: Denies any bleeding or petechiae. GENITOURINARY: Denies any burning micturition, frequency, or urgency. MUSCULOSKELETAL/RHEUMATOLOGICAL: Denies any joint pain, swelling, or any muscle pain. ENDOCRINE: Denies any polyuria or polydipsia. Past Medical History Past Medical History: Diabetes Mellitus, Hyperlipidemia, Hypertension, Myocardial Infarction ([place]) Last Myocardial Infarction Date:: december 2019 History of Any Multi-Drug Resistant Organisms: None Reported Past Surgical History: Heart Catheterization With Stent, Hysterectomy, Tonsillectomy Past Anesthesia/Blood Transfusion Reactions: No Reported Reaction Date of Last Stent Placement:: dec 2019 Past Psychological History: No Psychological Hx Reported Smoking Status: Never smoker Past Alcohol Use History: None Reported Past Drug Use History: None Reported - Past Family History Father Family Medical History: Diabetes Mellitus Medications and Allergies Home Medications Medication Instructions Recorded Confirmed Type Atorvastatin Calcium [Lipitor] 40 mg PO DAILY #90 tablet 07/05/19 10/24/21 Rx Aspirin EC [Ecotrin Low Dose] 81 mg PO DAILY 06/20/20 10/24/21 History Cholecalciferol [Vitamin D3 (25 25 mcg PO BID 06/20/20 10/24/21 History Mcg = 1000 Iu)] DULoxetine HCL [Cymbalta] 60 mg PO DAILY 06/20/20 10/24/21 History Insulin Aspart (Niacinamide) 7 units SQ AC-TID MDD 36 units 06/20/20 10/24/21 History [Fiasp 100 Unit/ml Flextouch Pen] Insulin Degludec [Tresiba 22 units SQ HS 06/20/20 10/24/21 History Flextouch U-200 Pen] Furosemide [Lasix] 20 mg PO Q48H 10/07/20 10/24/21 History Empagliflozin [Jardiance] 10 mg PO DAILY 10/01/21 10/24/21 History Isosorbide Mononitrate 20 mg PO TID 10/01/21 10/24/21 History Metoprolol Tartrate [Lopressor] 50 mg PO BID-W/MEALS 10/01/21 10/24/21 History Sacubitril/Valsartan [Entresto 24 1 tab PO BID 10/01/21 10/24/21 History mg-26 mg Tablet] Insulin Aspart (Niacinamide) See Protocol SQ AC-TID MDD 36 units 10/24/21 10/24/21 History [Fiasp 100 Unit/ml Flextouch Pen] hydrALAZINE HCL [Apresoline] 50 mg PO Q7H 10/24/21 10/24/21 History Allergies Allergy/AdvReac Type Severity Reaction Status Date / Time Penicillins Allergy Rash/Hives, Verified 10/24/21 15:02 Difficulty breathing Physical Exam Vitals: Vital Signs Temp Pulse Pulse Pulse Pulse Resp BP 10/26/21 00:14 98.6 F 109 H 18 10/25/21 20:18 99.8 F H 117 H 120 H 105 H 16 136/72 10/25/21 20:00 16 10/25/21 15:00 99.4 F 100 100 H 10/25/21 09:20 18 BP BP Pulse Ox 10/26/21 00:14 143/75 96 10/25/21 20:18 133/65 167/81 95 10/25/21 20:00 10/25/21 15:00 176/79 97 10/25/21 09:20 Intake and Output 10/25/21 10/26/21 10/26/21 22:59 06:59 14:59 Intake Total 120 Balance 120 Intake: Oral 120 Other: Voiding Method Toilet Toilet # Voids 1 2 GENERAL: The patient is alert and oriented x3, not in any acute distress. Well developed, well nourished. HEENT: Pupils are round and equally reacting to light. EOMI. No scleral icterus. No conjunctival pallor. Normocephalic, atraumatic. No pharyngeal erythema. No thyromegaly. CARDIOVASCULAR: S1 and S2 present. No murmurs, rubs, or gallops. PULMONARY: Chest is clear to auscultation, no wheezing or crackles. ABDOMEN: Soft, nontender, nondistended, normoactive bowel sounds. No palpable organomegaly. MUSCULOSKELETAL: No joint swelling or deformity. EXTREMITIES: No cyanosis, clubbing, or pedal edema. NEUROLOGICAL: Gross neurological examination did not reveal any focal deficits. SKIN: No rashes. no petechiae. Results CBC & Chem 7: 10/25/21 06:52 06/25/22 13:54 Labs: Abnormal Lab Results - Last 24 Hours (Table) 10/25/21 10/25/21 10/25/21 Range/Units 06:52 07:23 12:10 WBC 3.03 L (4.50-10.00) X 10*3/uL RBC 3.68 L (4.10-5.20) X 10*6/uL Hgb 8.3 L (12.0-15.0) g/dL Hct 28.1 L (37.2-46.3) % MCV 76.4 L (80.0-97.0) fL MCH 22.6 L (27.0-32.0) pg MCHC 29.5 L (32.0-37.0) g/dL RDW 16.5 H (11.5-14.5) % MPV 9.3 L (9.5-12.2) fL Lymphocytes # 0.85 L (0.90-5.00) X 10*3/uL Monocytes # 0.18 L (0.20-1.00) X 10*3/uL POC Glucose (mg/dL) 148 H 223 H (70-110) mg/dL 10/25/21 10/25/21 Range/Units 17:20 20:49 WBC (4.50-10.00) X 10*3/uL RBC (4.10-5.20) X 10*6/uL Hgb (12.0-15.0) g/dL Hct (37.2-46.3) % MCV (80.0-97.0) fL MCH (27.0-32.0) pg MCHC (32.0-37.0) g/dL RDW (11.5-14.5) % MPV (9.5-12.2) fL Lymphocytes # (0.90-5.00) X 10*3/uL Monocytes # (0.20-1.00) X 10*3/uL POC Glucose (mg/dL) 209 H 174 H (70-110) mg/dL Thrombosis Risk Factor Assmnt - Choose All That Apply Each Factor Represents 1 point: Age 41-60 years Other Risk Factors: No Other congenital or acquired thrombophilia - If yes, enter type in comment: No Thrombosis Risk Factor Assessment Total Risk Factor Score: 1 Thrombosis Risk Factor Assessment Level: Low Risk Assessment and Plan Assessment: Hypotension and dizziness on admission, mostly related to hypertension resolved with IV fluids. Mild pancytopenia Mild hypovolemic hyponatremia Diabetes mellitus CKD, stage III Hypertension, patient was hypotensive on admission Hyperlipidemia Elevated d-dimer, check ultrasound of the leg Overweight with a BMI of 29.6 Plan: This is a pleasant 60 years old female who presents with dizziness and hypertension on admission Continue with IV fluids, hold antihypertensive medication Lasix, hydralazine and metoprolol and entresto Monitor blood pressure Nephrology consult recommended bread wrapping machine feeder evaluation as well. Continue with the jardians and insulin sliding scale Check ultrasound of the legs Labs and medication were reviewed.. Continue same treatment. Continue with symptomatic treatment. Resume home medication. Monitor lytes and vitals. DVT and GI prophylaxis. Further recommendationsas per clinical course of the patient DVT prophylaxis: Subcutaneous Lovenox GI Prophylaxis: Pepcid Prognosis is guarded
[2021-10-26 07:37] LABS: Glucose,Whole Blood 189 mg/dL (70-110)
[2021-10-26] MEDS: NON FORMULARY DRUG (Empagliflozin [Jardiance] 10 MG Tablet) PO SCH (07:41)
[2021-10-26] MEDS: INSULIN ASPART (NovoLOG) 100 UNIT/ML VIAL SQ SCH ×4 (07:45→22:26)
[2021-10-26] MEDS: ATORVASTATIN 40 MG TAB PO SCH (07:45)
[2021-10-26] MEDS: ASPIRIN 81 MG PO SCH (07:45)
[2021-10-26] MEDS: ENOXAPARIN 40 MG/0.4 ML SYRINGE SQ SCH (07:46)
[2021-10-26] MEDS: DULoxetine HCL 60 MG CAPSULE.DR PO SCH (07:46)
--- NOTE | 2021-10-26 08:50 | US ---
EXAMINATION TYPE: US venous doppler duplex LE DATE OF EXAM: 10/26/2021 8:25 AM COMPARISON: US CLINICAL HISTORY: leg swelling. Leg swelling, no known prior DVT SIDE PERFORMED: Bilateral TECHNIQUE: The lower extremity deep venous system is examined utilizing real time linear array sonog rohith with graded compression, doppler sonography and color-flow sonography. VESSELS IMAGED: Common Femoral Vein Deep Femoral Vein Greater Saphenous Vein * Femoral Vein Popliteal Vein Small Saphenous Vein * Proximal Calf Veins (* superficial vessels) Right Leg: Negative for DVT, probable Barraza's Cyst right pop fossa= 4.9 x 0.7 x 2.1 cm Left Leg: Negative for DVT IMPRESSION: 1. Bilateral lower extremity ultrasound negative for deep venous thrombosis. 2. Popliteal cyst right posterior knee fossa
[2021-10-26] MEDS ORDERED: FAMOTIDINE 20 MG/2 ML VIAL IV SCH (09:00)
[2021-10-26 09:30] LABS: African American GFR (CKD) 82 (>60 ml/min/1.73 sqM); Anion Gap 5 mmol/L; Blood Urea Nitrogen 13 mg/dL (7-17); Calcium 8.1 mg/dL (8.4-10.2); Carbon Dioxide 24 mmol/L (22-30); Chloride 105 mmol/L (98-107); Glucose 151 mg/dL (74-99); Non-African American GFR(CKD) 71 (>60 ml/min/1.73 sqM); Potassium 4.1 mmol/L (3.5-5.1); Sodium 134 mmol/L (137-145)
--- NOTE | 2021-10-26 09:33 | P.PN ---
Subjective Progress Note Date: 10/26/21 Principal diagnosis: Orthostasis. The patient is 60-year-old white female with history of heart failure who came in with significant dizziness. Also element of anemia which is being addressed by nephrology. Appreciate multiple consultants input. The patient has had no episodes since being admitted. Blood pressure seems to be nominal. Await cardiology evaluation to adjust medication load. Objective - Vital Signs Vital signs: Vital Signs Temp 98.6 F 10/26/21 07:00 Pulse 93 10/26/21 07:00 Resp 18 10/26/21 07:00 BP 148/76 10/26/21 07:00 Pulse Ox 96 10/26/21 07:00 FiO2 Intake & Output 10/25/21 10/26/21 10/26/21 18:59 06:59 18:59 Intake Total 480 Balance 480 Intake: Oral 480 Other: Voiding Method Toilet Toilet # Voids 3 2 - Constitutional General appearance: Present: average body habitus - EENT Eyes: Absent: abnormal pupil - Neck Neck: Absent: lymphadenopathy - Respiratory Respiratory: bilateral: CTA - Cardiovascular Rhythm: regular Heart sounds: normal: S1, S2 Abnormal Heart Sounds: Absent: S3 Gallop - Gastrointestinal General gastrointestinal: Present: soft. Absent: tenderness - Neurologic Neurologic: Present: CNII-XII intact - Labs CBC & Chem 7: 10/25/21 06:52 10/26/21 08:50 Labs: Abnormal Lab Results - Last 24 Hours (Table) 10/25/21 10/25/21 10/25/21 Range/Units 06:52 12:10 17:20 WBC 3.03 L (4.50-10.00) X 10*3/uL RBC 3.68 L (4.10-5.20) X 10*6/uL Hgb 8.3 L (12.0-15.0) g/dL Hct 28.1 L (37.2-46.3) % MCV 76.4 L (80.0-97.0) fL MCH 22.6 L (27.0-32.0) pg MCHC 29.5 L (32.0-37.0) g/dL RDW 16.5 H (11.5-14.5) % MPV 9.3 L (9.5-12.2) fL Lymphocytes # 0.85 L (0.90-5.00) X 10*3/uL Monocytes # 0.18 L (0.20-1.00) X 10*3/uL Sodium (137-145) mmol/L Glucose (74-99) mg/dL POC Glucose (mg/dL) 223 H 209 H (70-110) mg/dL Calcium (8.4-10.2) mg/dL 10/25/21 10/26/21 10/26/21 Range/Units 20:49 07:35 08:50 WBC (4.50-10.00) X 10*3/uL RBC (4.10-5.20) X 10*6/uL Hgb (12.0-15.0) g/dL Hct (37.2-46.3) % MCV (80.0-97.0) fL MCH (27.0-32.0) pg MCHC (32.0-37.0) g/dL RDW (11.5-14.5) % MPV (9.5-12.2) fL Lymphocytes # (0.90-5.00) X 10*3/uL Monocytes # (0.20-1.00) X 10*3/uL Sodium 134 L (137-145) mmol/L Glucose 151 H (74-99) mg/dL POC Glucose (mg/dL) 174 H 189 H (70-110) mg/dL Calcium 8.1 L (8.4-10.2) mg/dL Assessment and Plan Assessment: Orthostatic hypotension. History of heart failure. Diabetes. Plan: Continue current regimen of treatment. Await adjustment of medication via cardiology. \ Watch blood pressure closely. Increase ambulation otherwise.
--- NOTE | 2021-10-26 09:58 | P.CRDCN ---
History of Present Illness Consult date: 10/26/21 History of present illness: HISTORY OF PRESENT ILLNESS: This is a 60-year-old female with a past medical history significant for congestive heart failure, coronary artery disease with previous stent placement, hypertension, hyperlipidemia, diabetes, and cardiomyopathy. Patient follows in the office with Dr. Augustine. We have been asked to see the patient in consultation for orthostatic hypotension. Patient examined at the bedside. Patient reports she went to visit her father Tuesday at [facility]. When she left [facility], she began to feel short of breath, dizzy and lightheaded. She denied any chest pain or pressure. She reported blurred vision. She denies any syncopal episodes. Patient was found to be hypotensive upon arrival to the hospital with a blood pressure in the 70s. Her blood pressure medications were placed on hold. Her blood pressure has since improved. The patient does report a decreased appetite over the past 2 months with a 20 pound weight loss. * EKG reveals sinus mechanism with no signs of acute ischemia * Chest xray minimal subsegmental atelectasis left lung base and pleural reaction without much change compared to exam. Normal heart. * Laboratory data: WBC 3.03. Hemoglobin 8.3. Platelet count 352. D-dimer 6.0. sodium 134. Potassium 4.1. BUN 13. Creatinine 0.89. Troponin negative 1. ProBNP 1070. * Current home cardiac medications include hydralazine 50 mg 3 times a day, metoprolol tartrate 50 mg twice a day, isosorbide 20 mg 3 times a day, Lasix 20 mg every 48 hours, Entresto 24-26mg BID, aspirin 81 mg daily, and atorvastatin 40 mg daily * Most recent echocardiogram obtained in August 2021 revealed ejection fraction 47% with mild MR * Cardiac catheterization history: December 2019 with stent placement to the [facility] REVIEW OF SYSTEMS: At the time of my exam: CONSTITUTIONAL: Denies fever or chills. HEENT: Denies blurred vision, vision changes, or eye pain. Denies hemoptysis CARDIOVASCULAR: Denies chest pain. Denies orthopnea. Denies PND. Denies palpitations RESPIRATORY: Denies shortness of breath. GASTROINTESTINAL: Denies abdominal pain. Denies nausea or vomiting. HEMATOLOGIC: Denies bleeding disorders. GENITOURINARY: Denies any blood in urine. SKIN: Denies pruitis. Denies rash. PHYSICAL EXAM: VITAL SIGNS: Reviewed. GENERAL: Well-developed in no acute distress. HEENT: Head is normocephalic. Pupils are equal, round. Sclerae anicteric. Mucous membranes of the mouth are moist. Neck supple. No JVD or thyromegaly LUNGS: Respirations even and unlabored. Lungs essentially clear to auscultation bilaterally. HEART: Regular rate and rhythm. S1 and S2 heard. ABDOMEN: Soft. Nondistended. Nontender. EXTREMITIES: Normal range of motion. No clubbing or cyanosis. Peripheral pulses intact. No lower extremity edema NEUROLOGIC: Awake and alert. Oriented x 3. ASSESSMENT: Dizziness/near syncope secondary to hypotension Hypotension Coronary artery disease with previous PCI Chronic heart failure with reduced EF Ischemic cardiomyopathy Hypertension Hyperlipidemia Diabetes PLAN: Obtain 2D echo to assess cardiac structure and function Continue to monitor BP and telemetry Continue to hold Lasix and Hydralazine Resume metoprolol tartrate at a lower dose of 25 mg twice a day Resume Entresto Further recommendations pending patient course Nurse practitioner note has been reviewed by physician. Signing provider agrees with the documented findings, assessment, and plan of care. Past Medical History Past Medical History: Diabetes Mellitus, Hyperlipidemia, Hypertension, Myocardial Infarction ([place]) Last Myocardial Infarction Date:: december 2019 History of Any Multi-Drug Resistant Organisms: None Reported Past Surgical History: Heart Catheterization With Stent, Hysterectomy, Tonsillectomy Past Anesthesia/Blood Transfusion Reactions: No Reported Reaction Date of Last Stent Placement:: dec 2019 Past Psychological History: No Psychological Hx Reported Smoking Status: Never smoker Past Alcohol Use History: None Reported Past Drug Use History: None Reported - Past Family History Father Family Medical History: Diabetes Mellitus Medications and Allergies Home Medications Medication Instructions Recorded Confirmed Type Atorvastatin Calcium [Lipitor] 40 mg PO DAILY #90 tablet 07/05/19 10/24/21 Rx Aspirin EC [Ecotrin Low Dose] 81 mg PO DAILY 06/20/20 10/24/21 History Cholecalciferol [Vitamin D3 (25 25 mcg PO BID 06/20/20 10/24/21 History Mcg = 1000 Iu)] DULoxetine HCL [Cymbalta] 60 mg PO DAILY 06/20/20 10/24/21 History Insulin Aspart (Niacinamide) 7 units SQ AC-TID MDD 36 units 06/20/20 10/24/21 History [Fiasp 100 Unit/ml Flextouch Pen] Insulin Degludec [Tresiba 22 units SQ HS 06/20/20 10/24/21 History Flextouch U-200 Pen] Furosemide [Lasix] 20 mg PO Q48H 10/07/20 10/24/21 History Empagliflozin [Jardiance] 10 mg PO DAILY 10/01/21 10/24/21 History Isosorbide Mononitrate 20 mg PO TID 10/01/21 10/24/21 History Metoprolol Tartrate [Lopressor] 50 mg PO BID-W/MEALS 10/01/21 10/24/21 History Sacubitril/Valsartan [Entresto 24 1 tab PO BID 10/01/21 10/24/21 History mg-26 mg Tablet] Insulin Aspart (Niacinamide) See Protocol SQ AC-TID MDD 36 units 10/24/21 10/24/21 History [Fiasp 100 Unit/ml Flextouch Pen] hydrALAZINE HCL [Apresoline] 50 mg PO Q7H 10/24/21 10/24/21 History Allergies Allergy/AdvReac Type Severity Reaction Status Date / Time Penicillins Allergy Rash/Hives, Verified 10/24/21 15:02 Difficulty breathing Physical Exam Vitals: Vital Signs Temp Pulse Pulse Pulse Pulse Resp BP 10/26/21 07:00 98.6 F 93 18 10/26/21 00:14 98.6 F 109 H 18 10/25/21 20:18 99.8 F H 117 H 120 H 105 H 16 136/72 10/25/21 20:00 16 10/25/21 15:00 99.4 F 100 100 H BP BP Pulse Ox 10/26/21 07:00 148/76 96 10/26/21 00:14 143/75 96 10/25/21 20:18 133/65 167/81 95 10/25/21 20:00 10/25/21 15:00 176/79 97 Intake and Output 10/25/21 10/26/21 10/26/21 22:59 06:59 14:59 Intake Total 120 Balance 120 Intake: Oral 120 Other: Voiding Method Toilet Toilet Toilet # Voids 1 2 Results 10/25/21 06:52 10/26/21 08:50 CBC 10/25/21 Range/Units 06:52 WBC 3.03 L (4.50-10.00) X 10*3/uL RBC 3.68 L (4.10-5.20) X 10*6/uL Hgb 8.3 L (12.0-15.0) g/dL Hct 28.1 L (37.2-46.3) % Plt Count 352 (140-440) X 10*3/uL Current Medications Generic Name Dose Route Start Last Admin Trade Name Freq PRN Reason Stop Dose Admin Acetaminophen 650 mg 10/25/21 09:06 10/26/21 03:36 Acetaminophen Tab 325 Mg Tab PO 650 mg Q6HR PRN Administration Fever and/ or Pain Aspirin 81 mg 10/25/21 09:00 10/26/21 07:45 Aspirin 81 Mg PO 81 mg DAILY PARISH Administration Atorvastatin Calcium 40 mg 10/25/21 09:00 10/26/21 07:45 Atorvastatin 40 Mg Tab PO 40 mg DAILY PARISH Administration Duloxetine HCl 60 mg 10/25/21 09:00 10/26/21 07:46 Duloxetine Hcl 60 Mg Capsule.Dr PO 60 mg DAILY PARISH Administration Enoxaparin Sodium 40 mg 10/26/21 09:00 10/26/21 07:46 Enoxaparin 40 Mg/0.4 Ml Syringe SQ 40 mg DAILY PARISH Administration Famotidine 20 mg 10/26/21 09:00 10/26/21 07:46 Famotidine 20 Mg/2 Ml Vial IV 20 mg Q12HR PARISH Administration Sodium Chloride 1,000 mls @ 75 mls/hr 10/24/21 16:30 10/26/21 07:45 Saline 0.9% IV 75 mls/hr .[id number] PARISH Administration Insulin Aspart 0 unit 10/25/21 17:30 10/26/21 07:45 Insulin Aspart (Novolog) 100 Unit/Ml Vial SQ 2 unit ACHS PARISH Administration Protocol Non-Formulary Medication 10 mg 10/25/21 09:00 10/26/21 07:41 Empagliflozin [Jardiance] PO Not Given DAILY PARISH Ondansetron HCl 4 mg 10/25/21 19:58 10/25/21 21:40 Ondansetron 4 Mg/2 Ml Vial IVP 4 mg Q6HR PRN Administration Nausea And Vomiting Intake and Output 10/25/21 10/26/2110/26/22 22:59 06:59 14:59 Intake Total 120 Balance 120 Intake: Oral 120 Other: Voiding Method Toilet Toilet Toilet # Voids 1 2 10/25/21 06:52 10/24/21 13:54
--- NOTE | 2021-10-26 10:06 | P.PN ---
Subjective Patient is seen for follow-up for chronic kidney disease, secondary to biopsy- proven diabetic kidney disease. Patient also had acute kidney injury and hyponatremia which has improved. Creatinine improved from 1.1 to 0.89. Sodium is 133 No significant complaints today. Objective - Vital Signs Vital signs: Vital Signs Temp 98.6 F 10/26/21 07:00 Pulse 93 10/26/21 07:00 Resp 18 10/26/21 07:00 BP 148/76 10/26/21 07:00 Pulse Ox 96 10/26/21 07:00 FiO2 Intake & Output 10/25/21 10/26/21 10/26/21 18:59 06:59 18:59 Intake Total 480 Balance 480 Intake: Oral 480 Other: Voiding Method Toilet Toilet # Voids 3 2 - Exam Patient is awake, comfortable, not in any acute distress Examination of the heart S1 and S2 Examination of the lungs bilateral breath sounds are heard Abdomen is soft nontender Examination of the lower extremities shows no significant edema [employer] exam is grossly intact - Labs CBC & Chem 7: 10/25/21 06:52 10/26/21 08:50 Labs: Abnormal Lab Results - Last 24 Hours (Table) 10/25/21 10/25/21 10/25/21 Range/Units 06:52 12:10 17:20 WBC 3.03 L (4.50-10.00) X 10*3/uL RBC 3.68 L (4.10-5.20) X 10*6/uL Hgb 8.3 L (12.0-15.0) g/dL Hct 28.1 L (37.2-46.3) % MCV 76.4 L (80.0-97.0) fL MCH 22.6 L (27.0-32.0) pg MCHC 29.5 L (32.0-37.0) g/dL RDW 16.5 H (11.5-14.5) % MPV 9.3 L (9.5-12.2) fL Lymphocytes # 0.85 L (0.90-5.00) X 10*3/uL Monocytes # 0.18 L (0.20-1.00) X 10*3/uL Sodium (137-145) mmol/L Glucose (74-99) mg/dL POC Glucose (mg/dL) 223 H 209 H (70-110) mg/dL Calcium (8.4-10.2) mg/dL 10/25/21 10/26/21 10/26/21 Range/Units 20:49 07:35 08:50 WBC (4.50-10.00) X 10*3/uL RBC (4.10-5.20) X 10*6/uL Hgb (12.0-15.0) g/dL Hct (37.2-46.3) % MCV (80.0-97.0) fL MCH (27.0-32.0) pg MCHC (32.0-37.0) g/dL RDW (11.5-14.5) % MPV (9.5-12.2) fL Lymphocytes # (0.90-5.00) X 10*3/uL Monocytes # (0.20-1.00) X 10*3/uL Sodium 134 L (137-145) mmol/L Glucose 151 H (74-99) mg/dL POC Glucose (mg/dL) 174 H 189 H (70-110) mg/dL Calcium 8.1 L (8.4-10.2) mg/dL Assessment and Plan Assessment: 1. 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 Weakness,? Dizziness with postural hypotension. Currently maintained on IV fluids 3. Anemia with iron deficiency status post IV iron as outpatient 4. Hyponatremia associated with CK D and high blood sugars, currently improved 5. Hypertension with significant postural hypotension Plan: Continue with and Crestor May continue with IV fluids Patient can be discharged from nephrology standpoint Follow-up as outpatient in 1 week. Patient does have an appointment in about 5- 6 days
[2021-10-26] MEDS: METOPROLOL TARTRATE 25 MG TAB PO SCH ×2 (10:15→17:16)
[2021-10-26] MEDS: SACUBITRIL/VALSARTAN 24 MG-26 MG TABLET PO SCH ×2 (10:15→20:47)
[2021-10-26] MEDS: ISOSORBIDE MONONITRATE 20 MG TAB PO SCH ×3 (10:15→20:47)
[2021-10-26 11:44] LABS: Glucose,Whole Blood 210 mg/dL (70-110)
--- NOTE | 2021-10-26 11:56 | CA ---
Transthoracic Echo Report Name: Liudmila Lopez Age: 60 Gender: F : 1960 Exam Date: 10/26/2021 09:41 Exam Location: [facility] Ht (in): 65 Wt (lb): 178 Ordering Physician: Cheryl Tillman Attending/Referring Phys: Awa Stephen MD Diaper Folder Kendy Sow RDCS Procedure CPT: Indications: LV function Cardiac Hx: Technical Quality: Good Contrast 1: Total Dose (mL): Contrast 2: Total Dose (mL): MEASUREMENTS (Male / Female) Normal Values 2D ECHO LV Diastolic Diameter PLAX 4.3 cm 4.2 - 5.9 / 3.9 - 5.3 cm LV Systolic Diameter PLAX 2.7 cm IVS Diastolic Thickness 1.3 cm 0.6 - 1.0 / 0.6 - 0.9 cm LVPW Diastolic Thickness 1.4 cm 0.6 - 1.0 / 0.6 - 0.9 cm LV Relative Wall Thickness 0.6 RV Internal Dim ED PLAX 3.2 cm DOPPLER AV Peak Velocity 161.2 cm/s AV Peak Gradient 10.4 mmHg AI Peak Velocity 155.5 cm/s AI Peak Gradient 9.7 mmHg AI Pressure Half Time 634.4 ms MV Area PHT 5.1 cm??? MR Peak Velocity 124.2 cm/s MR Peak Gradient 6.2 mmHg Mitral E Point Velocity 109.2 cm/s Mitral A Point Velocity 123.9 cm/s Mitral E to A Ratio 0.9 MV Deceleration Time 148.5 ms TR Peak Velocity 231.1 cm/s TR Peak Gradient 21.4 mmHg Right Ventricular Systolic Press 26.4 mmHg FINDINGS Left Ventricle Moderately increased septal wall thickness. Moderately increased posterior wall thickness. Left ventricular ejection fraction is estimated at 55-60_ %. Left ventricular cavity size normal. Right Ventricle The right ventricle is normal in size and function. Right Atrium The right atrium is normal in size. Left Atrium The left atrium is normal in size. Mitral Valve Structurally normal mitral valve without significant stenosis or prolapse. There is a trace mitral regurgitation. Aortic Valve Structurally normal aortic valve without significant sclerosis or stenosis. There is a trace aortic regurgitation. Possible vegetation on the aortic valve. Tricuspid Valve Structurally normal tricuspid valve without significant stenosis. Pulmonary artery systolic pressure is normal. Trace tricuspid regurgitation. Pulmonic Valve Structurally normal pulmonic valve without significant stenosis. There is no pulmonic regurgitation. Pericardium Normal pericardium without effusion. Aorta Normal aortic root dimension. CONCLUSIONS Normal LV systolic functio Aortic valve leaflet appears thickened consider transesophageal echo for further evaluation Previewed by: Dr. Shawn Ace MD (Electronically Signed) Final Date: 26 October 2021 11:55
[2021-10-26 17:11] LABS: Glucose,Whole Blood 255 mg/dL (70-110)
[2021-10-26] MEDS: FAMOTIDINE 20 MG TAB PO SCH (20:47)
[2021-10-26 21:12] LABS: Glucose,Whole Blood 145 mg/dL (70-110)
--- NOTE | 2021-10-26 23:37 | P.CONS ---
History of Present Illness - Reason for Consult Consult date: 10/26/21 - History of Present Illness Patient is a 60-year-old female with a past medical history significant for diabetes mellitus hypertension hyperlipidemia, coronary artery disease in this patient admitted to the hospital 2 days ago for evaluation of increasing shortness of breath and dizziness patient symptom has been going on for several days however continuously on presentation to the hospital and she thought she may have her heart attack and she presented to hospital, on presentation to the hospital patient was afebrile last night the patient did have low-grade fever of 99.8 F however the patient denies having any rigors or chills patient did have a normal white count no significant lymphopenia kidney function has been normal as well as electrolytes levels and has been normal influenza RSV and COVID PCR was negative patient did have a chest x-ray minimal subsegmental atelectasis left lung base CT angiogram of the chest was negative for PE did not show any consolidation and echocardiogram discharged to have normal LV systolic function aortic valve leaflets appear thickened and cardiology recommending a MAURICE no blood cultures have been done UA has been requested not completed infectious disease was consulted because of her fever. Past Medical History Past Medical History: Diabetes Mellitus, Hyperlipidemia, Hypertension, Myocardial Infarction ([place]) Last Myocardial Infarction Date:: december 2019 History of Any Multi-Drug Resistant Organisms: None Reported Past Surgical History: Heart Catheterization With Stent, Hysterectomy, Tonsillectomy Past Anesthesia/Blood Transfusion Reactions: No Reported Reaction Date of Last Stent Placement:: dec 2019 Past Psychological History: No Psychological Hx Reported Smoking Status: Never smoker Past Alcohol Use History: None Reported Past Drug Use History: None Reported - Past Family History Father Family Medical History: Diabetes Mellitus Medications and Allergies Home Medications Medication Instructions Recorded Confirmed Type Atorvastatin Calcium [Lipitor] 40 mg PO DAILY #90 tablet 07/05/19 10/24/21 Rx Aspirin EC [Ecotrin Low Dose] 81 mg PO DAILY 06/20/20 10/24/21 History Cholecalciferol [Vitamin D3 (25 25 mcg PO BID 06/20/20 10/24/21 History Mcg = 1000 Iu)] DULoxetine HCL [Cymbalta] 60 mg PO DAILY 06/20/20 10/24/21 History Insulin Aspart (Niacinamide) 7 units SQ AC-TID MDD 36 units 06/20/20 10/24/21 History [Fiasp 100 Unit/ml Flextouch Pen] Insulin Degludec [Tresiba 22 units SQ HS 06/20/20 10/24/21 History Flextouch U-200 Pen] Furosemide [Lasix] 20 mg PO Q48H 10/07/20 10/24/21 History Empagliflozin [Jardiance] 10 mg PO DAILY 10/01/21 10/24/21 History Isosorbide Mononitrate 20 mg PO TID 10/01/21 10/24/21 History Metoprolol Tartrate [Lopressor] 50 mg PO BID-W/MEALS 10/01/21 10/24/21 History Sacubitril/Valsartan [Entresto 24 1 tab PO BID 10/01/21 10/24/21 History mg-26 mg Tablet] Insulin Aspart (Niacinamide) See Protocol SQ AC-TID MDD 36 units 10/24/21 10/24/21 History [Fiasp 100 Unit/ml Flextouch Pen] hydrALAZINE HCL [Apresoline] 50 mg PO Q7H 10/24/21 10/24/21 History Allergies Allergy/AdvReac Type Severity Reaction Status Date / Time Penicillins Allergy Rash/Hives, Verified 10/24/21 15:02 Difficulty breathing Physical Exam Vitals: Vital Signs Temp Pulse Resp BP Pulse Ox 10/26/21 19:14 98.8 F 73 18 157/70 93 L 10/26/21 15:00 98.7 F 80 18 169/78 96 10/26/21 07:00 98.6 F 93 18 148/76 96 10/26/21 00:14 98.6 F 109 H 18 143/75 96 Intake and Output 10/26/21 10/26/21 10/27/21 14:59 22:59 06:59 Intake Total 236 Balance 236 Intake: Oral 236 Other: Voiding Method Toilet # Voids 1 Results CBC & Chem 7: 10/25/21 06:52 10/26/21 08:50 Labs: Abnormal Lab Results - Last 24 Hours (Table) 10/26/21 10/26/21 10/26/21 Range/Units 07:35 08:50 11:41 Sodium 134 L (137-145) mmol/L Glucose 151 H (74-99) mg/dL POC Glucose (mg/dL) 189 H 210 H (70-110) mg/dL Calcium 8.1 L (8.4-10.2) mg/dL 10/26/21 10/26/21 Range/Units 17:08 21:11 Sodium (137-145) mmol/L Glucose (74-99) mg/dL POC Glucose (mg/dL) 255 H 145 H (70-110) mg/dL Calcium (8.4-10.2) mg/dL Assessment and Plan Plan: 1patient presented to hospital with increasing shortness of breath feeling dizzy and initial concern for possible KS which has been ruled out patient did have low-grade fever of 99.8 degrees formulae and last night and no fever since then patient did not have any leukocytosis and no obvious focus of infection seen angiogram was negative for PE and did not show any consolidation UA was requested after was not completed and did have a slight abnormality on the echocardiogram concerning for possible aortic valve vegetation. 2we will obtain blood cultures x2, check CRP procalcitonin and sed rate. 3we will hold on empiric antibiotic while awaiting further work-up to be completed. 4agree with MAURICE to better define abnormality seen on the surface echo. My we will follow on clinical condition and cultures to further adjust medication if needed Thank you for this consultation will follow this patient along with you
[2021-10-27] MEDS: SODIUM CHLORIDE 0.9% 1,000 ML IV SCH ×2 (06:00→12:09)
[2021-10-27 07:09] LABS: Glucose,Whole Blood 224 mg/dL (70-110)
[2021-10-27] MEDS: METOPROLOL TARTRATE 25 MG TAB PO SCH ×2 (07:34→17:27)
[2021-10-27] MEDS: INSULIN ASPART (NovoLOG) 100 UNIT/ML VIAL SQ SCH ×4 (07:34→21:18)
--- NOTE | 2021-10-27 08:46 | P.DS ---
Providers Date of admission: 10/24/21 16:17 Attending physician: Shade Clemens Consults: 10/25/21 18:19 Consult Physician Routine Consulting Provider: Sam Yanez Consult Reason/Comments: orthostatic hypotension Do you want consulting provider notified?: Yes 10/26/21 07:34 Consult Physician Routine Consulting Provider: Amadeo Akhtar Consult Reason/Comments: fever Do you want consulting provider notified?: Yes Primary care physician: Shade Clemens Hospital Course: This discharge summary 6-year-old white female essentially admitted for orthostatic hypotension. Underlying history of cardiomyopathy and heart failure. Medications titrated echocardiogram was done multiple consultants were noted. We will DC once cleared by cardiology although MAURICE could be ordered. No evidence of endocarditis or clinical problems related to this but there was some odd finding on original echo. Appreciate multiple consultants input with nephrology, infectious disease and cardiology. The patient we discharged once cleared by cardiology with titration of her medication. We will watch closely and follow-up in about 3 days Patient Condition at Discharge: Stable Plan - Discharge Summary Discharge Rx Participant: No New Discharge Prescriptions: New Metoprolol Tartrate [Lopressor] 25 mg PO BID-W/MEALS #60 tab Continue Atorvastatin Calcium [Lipitor] 40 mg PO DAILY #90 tablet Cholecalciferol [Vitamin D3 (25 Mcg = 1000 Iu)] 25 mcg PO BID Insulin Degludec [Tresiba Flextouch U-200 Pen] 22 units SQ HS Insulin Aspart (Niacinamide) [Fiasp 100 Unit/ml Flextouch Pen] 7 units SQ AC- TID MDD 36 units DULoxetine HCL [Cymbalta] 60 mg PO DAILY Aspirin EC [Ecotrin Low Dose] 81 mg PO DAILY Sacubitril/Valsartan [Entresto 24 mg-26 mg Tablet] 1 tab PO BID Empagliflozin [Jardiance] 10 mg PO DAILY Insulin Aspart (Niacinamide) [Fiasp 100 Unit/ml Flextouch Pen] See Protocol SQ AC-TID MDD 36 units Isosorbide Mononitrate 20 mg PO TID Discontinued Furosemide [Lasix] 20 mg PO Q48H Metoprolol Tartrate [Lopressor] 50 mg PO BID-W/MEALS hydrALAZINE HCL [Apresoline] 50 mg PO Q7H Discharge Medication List Atorvastatin Calcium [Lipitor] 40 mg PO DAILY #90 tablet 07/05/19 [Rx] Aspirin EC [Ecotrin Low Dose] 81 mg PO DAILY 06/20/20 [History] Cholecalciferol [Vitamin D3 (25 Mcg = 1000 Iu)] 25 mcg PO BID 06/20/20 [History] DULoxetine HCL [Cymbalta] 60 mg PO DAILY 06/20/20 [History] Insulin Aspart (Niacinamide) [Fiasp 100 Unit/ml Flextouch Pen] 7 units SQ AC-TID MDD 36 units 06/20/20 [History] Insulin Degludec [Tresiba Flextouch U-200 Pen] 22 units SQ HS 06/20/20 [History] Empagliflozin [Jardiance] 10 mg PO DAILY 10/01/21 [History] Isosorbide Mononitrate 20 mg PO TID 10/01/21 [History] Sacubitril/Valsartan [Entresto 24 mg-26 mg Tablet] 1 tab PO BID 10/01/21 [History] Insulin Aspart (Niacinamide) [Fiasp 100 Unit/ml Flextouch Pen] See Protocol SQ AC-TID MDD 36 units 10/24/21 [History] Metoprolol Tartrate [Lopressor] 25 mg PO BID-W/MEALS #60 tab 10/27/21 [Rx] Follow up Appointment(s)/Referral(s): Shade Clemens MD [Primary Care Provider] - 3 Days Discharge Disposition: HOME SELF-CARE
[2021-10-27] MEDS: NON FORMULARY DRUG (Empagliflozin [Jardiance] 10 MG Tablet) PO SCH (08:49)
[2021-10-27] MEDS: FAMOTIDINE 20 MG TAB PO SCH ×2 (08:55→20:06)
[2021-10-27] MEDS: ATORVASTATIN 40 MG TAB PO SCH (08:55)
[2021-10-27] MEDS: ISOSORBIDE MONONITRATE 20 MG TAB PO SCH ×3 (08:55→21:16)
[2021-10-27] MEDS: ASPIRIN 81 MG PO SCH (08:55)
[2021-10-27] MEDS: ENOXAPARIN 40 MG/0.4 ML SYRINGE SQ SCH (08:55)
[2021-10-27] MEDS: SACUBITRIL/VALSARTAN 24 MG-26 MG TABLET PO SCH ×2 (08:55→20:07)
[2021-10-27] MEDS: DULoxetine HCL 60 MG CAPSULE.DR PO SCH (08:55)
--- NOTE | 2021-10-27 11:26 | P.PN ---
Subjective Progress Note Date: 10/27/21 HISTORY OF PRESENT ILLNESS: This is a 60-year-old female with a past medical history significant for congestive heart failure, coronary artery disease with previous stent placement, hypertension, hyperlipidemia, diabetes, and cardiomyopathy. Patient follows in the office with Dr. Augustine. We have been asked to see the patient in consultation for orthostatic hypotension. Patient examined at the bedside. Patient reports she went to visit her father Tuesday at [facility]. When she left [facility], she began to feel short of breath, dizzy and lightheaded. She denied any chest pain or pressure. She reported blurred vision. She denies any syncopal episodes. Patient was found to be hypotensive upon arrival to the hospital with a blood pressure in the 70s. Her blood pressure medications were placed on hold. Her blood pressure has since improved. The patient does report a decreased a ppetite over the past 2 months with a 20 pound weight loss. * EKG reveals sinus mechanism with no signs of acute ischemia * Chest xray minimal subsegmental atelectasis left lung base and pleural reacti on without much change compared to exam. Normal heart. * Laboratory data: WBC 3.03. Hemoglobin 8.3. Platelet count 352. D-dimer 6.0. sodium 134. Potassium 4.1. BUN 13. Creatinine 0.89. Troponin negative 1. ProBNP 1070. * Current home cardiac medications include hydralazine 50 mg 3 times a day, metoprolol tartrate 50 mg twice a day, isosorbide 20 mg 3 times a day, Lasix 20 mg every 48 hours, Entresto 24-26mg BID, aspirin 81 mg daily, and atorvastatin 40 mg daily * Most recent echocardiogram obtained in August 2021 revealed ejection fraction 47% with mild MR * Cardiac catheterization history: December 2019 with stent placement to the PDA 10/27/2021 Patient examined this morning at the bedside. Patient denies chest pain or pressure. She denies shortness of breath. Patient's vital signs are stable. Blood pressure this morning 145/71. Echocardiogram completed revealing ejection fraction 55-60%, trace aortic regurgitation, possible vegetation on aortic valve. PHYSICAL EXAM: VITAL SIGNS: Reviewed. GENERAL: Well-developed in no acute distress. HEENT: Head is normocephalic. Pupils are equal, round. Sclerae anicteric. Mucous membranes of the mouth are moist. Neck supple. No JVD or thyromegaly LUNGS: Respirations even and unlabored. Lungs essentially clear to auscultation bilaterally. HEART: Regular rate and rhythm. S1 and S2 heard. ABDOMEN: Soft. Nondistended. Nontender. EXTREMITIES: Normal range of motion. No clubbing or cyanosis. Peripheral pulses intact. No lower extremity edema NEUROLOGIC: Awake and alert. Oriented x 3. ASSESSMENT: Dizziness/near syncope secondary to hypotension Hypotension Coronary artery disease with previous PCI Chronic heart failure with reduced EF Ischemic cardiomyopathy Hypertension Hyperlipidemia Diabetes PLAN: Continue to monitor BP and telemetry Continue to hold Lasix and Hydralazine Continue Entresto and Metoprolol Blood cultures ordered per infectious disease. Await results. If possible, will consider MAURICE Patient instructed to keep a log of her blood pressures once she is discharged Further recommendations pending patient course Nurse practitioner note has been reviewed by physician. Signing provider agrees with the documented findings, assessment, and plan of care. Objective - Vital Signs Vital signs: Vital Signs Temp 98.4 F 10/27/21 07:00 Pulse 83 10/27/21 07:00 Resp 16 10/27/21 07:00 BP 145/71 10/27/21 07:00 Pulse Ox 95 10/27/21 07:00 FiO2 Intake & Output 10/26/21 10/27/21 10/27/21 18:59 06:59 18:59 Intake Total 236 118 Balance 236 118 Intake: Oral 236 118 Other: Voiding Method Toilet Toilet Toilet # Voids 1 2 - Labs CBC & Chem 7: 10/25/21 06:52 10/26/21 08:50 Labs: Abnormal Lab Results - Last 24 Hours (Table) 10/26/21 10/26/21 10/26/21 Range/Units 11:41 17:08 21:11 ESR (0-30) mm/Hr POC Glucose (mg/dL) 210 H 255 H 145 H (70-110) mg/dL C-Reactive Protein (<1.0) mg/dL Procalcitonin (0.02-0.09) ng/mL 10/27/21 10/27/21 10/27/21 Range/Units 06:25 06:25 06:25 ESR 50 H (0-30) mm/Hr POC Glucose (mg/dL) (70-110) mg/dL C-Reactive Protein 17.3 H (<1.0) mg/dL Procalcitonin 0.17 H (0.02-0.09) ng/mL 10/27/21 Range/Units 07:07 ESR (0-30) mm/Hr POC Glucose (mg/dL) 224 H (70-110) mg/dL C-Reactive Protein (<1.0) mg/dL Procalcitonin (0.02-0.09) ng/mL
[2021-10-27 11:57] LABS: Glucose,Whole Blood 192 mg/dL (70-110)
[2021-10-27 17:08] LABS: Glucose,Whole Blood 199 mg/dL (70-110)
[2021-10-27 20:26] LABS: Glucose,Whole Blood 213 mg/dL (70-110)
[2021-10-28 00:05] LABS: Appearance,Urine Cloudy (Clear); Bacteria,Urine Rare /hpf; Bilirubin,Urine Negative (Negative); Blood,Urine Small (Negative); Budding Yeast,Urine Few /hpf; Color,Urine Light Yellow; Glucose,Urine (UA) 4+ (Negative); Ketones,Urine Negative (Negative); Leukocyte Esterase,Urine Moderate (Negative); Nitrite,Urine Negative (Negative); Protein,Urine 2+ (Negative); RBC,Urine 1 /hpf (0-5); Specific Gravity,Urine 1.012 (1.001-1.035); Squamous Epithelial Cell,Urine <1 /hpf (0-4); WBC,Urine 29 /hpf (0-5)
[2021-10-28] MEDS: SODIUM CHLORIDE 0.9% 1,000 ML IV SCH (00:45)
[2021-10-28 02:58] VITALS: RESP 16
[2021-10-28 07:09] LABS: Glucose,Whole Blood 178 mg/dL (70-110)
[2021-10-28 07:29] VITALS: BP 175/78; PULSE 71; TEMP 98.1
[2021-10-28] MEDS: INSULIN ASPART (NovoLOG) 100 UNIT/ML VIAL SQ SCH (08:16)
[2021-10-28] MEDS: ISOSORBIDE MONONITRATE 20 MG TAB PO SCH (08:17)
[2021-10-28] MEDS: METOPROLOL TARTRATE 25 MG TAB PO SCH (08:17)
[2021-10-28] MEDS: FAMOTIDINE 20 MG TAB PO SCH (08:17)
[2021-10-28] MEDS: ATORVASTATIN 40 MG TAB PO SCH (08:17)
[2021-10-28] MEDS: DULoxetine HCL 60 MG CAPSULE.DR PO SCH (08:17)
[2021-10-28] MEDS: NON FORMULARY DRUG (Empagliflozin [Jardiance] 10 MG Tablet) PO SCH (08:17)
[2021-10-28] MEDS: ASPIRIN 81 MG PO SCH (08:17)
[2021-10-28] MEDS: ENOXAPARIN 40 MG/0.4 ML SYRINGE SQ SCH (08:17)
[2021-10-28] MEDS: SACUBITRIL/VALSARTAN 24 MG-26 MG TABLET PO SCH (08:18)
--- NOTE | 2021-10-28 10:06 | P.PN ---
Subjective Progress Note Date: 10/28/21 HISTORY OF PRESENT ILLNESS: This is a 60-year-old female with a past medical history significant for congestive heart failure, coronary artery disease with previous stent placement, hypertension, hyperlipidemia, diabetes, and cardiomyopathy. Patient follows in the office with Dr. Augustine. We have been asked to see the patient in consultation for orthostatic hypotension. Patient examined at the bedside. Patient reports she went to visit her father Tuesday at [facility]. When she left [facility], she began to feel short of breath, dizzy and lightheaded. She denied any chest pain or pressure. She reported blurred vision. She denies any syncopal episodes. Patient was found to be hypotensive upon arrival to the hospital with a blood pressure in the 70s. Her blood pressure medications were placed on hold. Her blood pressure has since improved. The patient does report a decreased a ppetite over the past 2 months with a 20 pound weight loss. * EKG reveals sinus mechanism with no signs of acute ischemia * Chest xray minimal subsegmental atelectasis left lung base and pleural reacti on without much change compared to exam. Normal heart. * Laboratory data: WBC 3.03. Hemoglobin 8.3. Platelet count 352. D-dimer 6.0. sodium 134. Potassium 4.1. BUN 13. Creatinine 0.89. Troponin negative 1. ProBNP 1070. * Current home cardiac medications include hydralazine 50 mg 3 times a day, metoprolol tartrate 50 mg twice a day, isosorbide 20 mg 3 times a day, Lasix 20 mg every 48 hours, Entresto 24-26mg BID, aspirin 81 mg daily, and atorvastatin 40 mg daily * Most recent echocardiogram obtained in August 2021 revealed ejection fraction 47% with mild MR * Cardiac catheterization history: December 2019 with stent placement to the PDA 10/27/2021 Patient examined this morning at the bedside. Patient denies chest pain or pressure. She denies shortness of breath. Patient's vital signs are stable. Blood pressure this morning 145/71. Echocardiogram completed revealing ejection fraction 55-60%, trace aortic regurgitation, possible vegetation on aortic valve. 10/28/2021 Patient examined this morning at the bedside. Patient denies chest pain or pressure. She denies shortness of breath. Patient's blood pressures are elevated this morning. Blood cultures are negative for growth at the 24 hour mira. PHYSICAL EXAM: VITAL SIGNS: Reviewed. GENERAL: Well-developed in no acute distress. HEENT: Head is normocephalic. Pupils are equal, round. Sclerae anicteric. Mucous membranes of the mouth are moist. Neck supple. No JVD or thyromegaly LUNGS: Respirations even and unlabored. Lungs essentially clear to auscultation bilaterally. HEART: Regular rate and rhythm. S1 and S2 heard. ABDOMEN: Soft. Nondistended. Nontender. EXTREMITIES: Normal range of motion. No clubbing or cyanosis. Peripheral pulses intact. No lower extremity edema NEUROLOGIC: Awake and alert. Oriented x 3. ASSESSMENT: Dizziness/near syncope secondary to hypotension Hypotension Coronary artery disease with previous PCI Chronic heart failure with reduced EF Ischemic cardiomyopathy Hypertension Hyperlipidemia Diabetes PLAN: Continue current cardiac medications Resume hydralazine at 25 mg 3 times a day No plans for MAURICE at this time as patient's blood cultures are negative at the 24 hour mira Patient instructed to keep a log of her blood pressures once she is discharged Patient may be discharged home today from a cardiac standpoint Nurse practitioner note has been reviewed by physician. Signing provider agrees with the documented findings, assessment, and plan of care. Objective - Vital Signs Vital signs: Vital Signs Temp 98.1 F 10/28/21 07:05 Pulse 71 10/28/21 07:05 Resp 16 10/28/21 07:05 BP 175/78 10/28/21 07:05 Pulse Ox 100 10/28/21 07:05 FiO2 Intake & Output 10/27/21 10/28/21 10/28/21 18:59 06:59 18:59 Intake Total 354 Balance 354 Intake: Oral 354 Other: Voiding Method Toilet Toilet # Voids 3 2 - Labs CBC & Chem 7: 10/25/21 06:52 10/26/21 08:50 Labs: Abnormal Lab Results - Last 24 Hours (Table) 10/27/21 10/27/21 10/27/21 Range/Units 11:56 17:07 20:24 POC Glucose (mg/dL) 192 H 199 H 213 H (70-110) mg/dL Urine Appearance (Clear) Urine Protein (Negative) Urine Glucose (UA) (Negative) Urine Blood (Negative) Ur Leukocyte Esterase (Negative) Urine WBC (0-5) /hpf Urine Bacteria (None) /hpf Urine Yeast (Budding) (None) /hpf 10/27/21 10/28/21 Range/Units 23:20 07:07 POC Glucose (mg/dL) 178 H (70-110) mg/dL Urine Appearance Cloudy H (Clear) Urine Protein 2+ H (Negative) Urine Glucose (UA) 4+ H (Negative) Urine Blood Small H (Negative) Ur Leukocyte Esterase Moderate H (Negative) Urine WBC 29 H (0-5) /hpf Urine Bacteria Rare H (None) /hpf Urine Yeast (Budding) Few H (None) /hpf Microbiology - Last 24 Hours (Table) 10/27/21 23:20 Urine Culture - Preliminary Urine,Voided 10/27/21 06:25 Blood Culture - Preliminary Blood No Growth after 24 hours 10/27/21 06:25 Blood Culture - Preliminary Blood No Growth after 24 hours
[2021-10-28] MEDS ORDERED: hydrALAZINE HCL 25 MG TAB PO SCH (10:15)
== END 2021-10-28 11:25 | disposition home or self-care (01) | DRG 312 ==
LOC: EC 13:33 → INTOOBSV 16:17 → 6NMEDSUR 16:17 → OBSVTOIN 10-27 17:58
PROVIDERS: ADMIT Family Medicine; ATTEND Family Medicine
DX: I95.1 Orthostatic hypotension (principal); D61.818 Other pancytopenia; E87.1 Hypo-osmolality and hyponatremia; I13.0 Hypertensive heart and chronic kidney disease with heart failure and stage 1 through stage 4 chronic kidney disease, or unspecified chronic kidney disease; I50.22 Chronic systolic (congestive) heart failure; J98.11 Atelectasis; N17.9 Acute kidney failure, unspecified; E11.21 Type 2 diabetes mellitus with diabetic nephropathy; Z20.822 Contact with and (suspected) exposure to COVID-19; D50.9 Iron deficiency anemia, unspecified; E11.22 Type 2 diabetes mellitus with diabetic chronic kidney disease; E66.3 Overweight; E78.5 Hyperlipidemia, unspecified; E86.1 Hypovolemia; F22 Delusional disorders; I25.10 Atherosclerotic heart disease of native coronary artery without angina pectoris; I25.2 Old myocardial infarction; I25.5 Ischemic cardiomyopathy; N18.30 Chronic kidney disease, stage 3 unspecified; Z68.29 Body mass index [BMI] 29.0-29.9, adult; Z79.4 Long term (current) use of insulin; Z79.82 Long term (current) use of aspirin; Z79.84 Long term (current) use of oral hypoglycemic drugs; Z79.899 Other long term (current) drug therapy; Z83.3 Family history of diabetes mellitus; Z90.710 Acquired absence of both cervix and uterus; Z95.5 Presence of coronary angioplasty implant and graft; Z88.0 Allergy status to penicillin
CPT/HCPCS: 36415; 71045; 71275; 80048; 80053; 81001; 82803; 83605; 83735; 83880; 84100; 84145; 84484; 85025; 85379; 85610; 85652; 85730; 86140; 87040; 87086; 87636; 93005; 93306; 93970; 96360; 99285

== ENCOUNTER → 2021-12-08 | Outpatient (CLI) | payer MEDICARE, BC ==
[2021-12-08 19:12] LABS: % Iron Saturation 10.31 (12.00-45.00); Anion Gap 10.9 mmol/L (10.00-18.00); BUN/Creat Ratio 22.67 Ratio (12.00-20.00); Blood Urea Nitrogen 20.4 mg/dL (9.0-27.0); Calcium 8.6 mg/dL (8.7-10.3); Carbon Dioxide 25.1 mmol/L (20.0-27.5); Potassium 4.4 mmol/L (3.5-5.5)
== END | disposition home or self-care (01) ==
LOC: LABWHC1 12:48
PROVIDERS: ATTEND Internal Medicine Nephrology
DX: D50.9 Iron deficiency anemia, unspecified (principal); N18.32 Chronic kidney disease, stage 3b
CPT/HCPCS: 36415; 80048; 82728; 83540; 83550

== ENCOUNTER → 2022-05-07 | Outpatient (CLI) | payer MEDICARE, BC ==
[2022-05-07 22:31] LABS: Basophils # (A) 0.05 X 10*3/uL (0.00-0.10); Basophils % (A) 0.9 %; Eosinophils # (A) 0.07 X 10*3/uL (0.04-0.35); Eosinophils % (A) 1.2 %; HCT 43.5 % (37.2-46.3); HGB 13.5 g/dL (12.0-15.0); Immature Grans, Automated 0.5 %; Lymphocytes # (A) 1.79 X 10*3/uL (0.90-5.00); Lymphocytes % (A) 30.8 %; MCH 27.4 pg (27.0-32.0); MCV 88.2 fL (80.0-97.0); Mean Platelet Volume 9.9 fL (9.5-12.2); Monocytes # (A) 0.54 X 10*3/uL (0.20-1.00); Monocytes % (A) 9.3 %; NRBC Per 100 WBC 0 /100 WBCS (0.0-0.0); Neutrophils # (A) 3.33 X 10*3/uL (1.80-7.70); Neutrophils % (A) 57.3 %; Platelet Count 237 X 10*3/uL (140-440); RBC 4.93 X 10*6/uL (4.10-5.20); RDW 16.7 % (11.5-14.5); WBC 5.81 X 10*3/uL (4.50-10.00)
[2022-05-07 23:27] LABS: % Iron Saturation 20.37 (12.00-45.00); African American GFR (CKD) 63.5 (60.0-200.0); Anion Gap 11.7 mmol/L (10.00-18.00); BUN/Creat Ratio 19.54 Ratio (12.00-20.00); Blood Urea Nitrogen 21.3 mg/dL (9.0-27.0); Calcium 9.1 mg/dL (8.7-10.3); Carbon Dioxide 26.6 mmol/L (20.0-27.5); Magnesium 2.2 mg/dL (1.5-2.4); Non-African American GFR(CKD) 54.8 (60.0-200.0); Phosphorus 4.6 mg/dL (2.4-5.1); Potassium 4.5 mmol/L (3.5-5.5); Uric Acid 6.5 mg/dL (2.9-7.7)
[2022-05-08 00:09] LABS: Appearance,Urine Clear (Clear); Bilirubin,Urine Negative (Negative); Blood,Urine Negative (Negative); Color,Urine Yellow (Yellow); Ketones,Urine Negative (Negative); Nitrite,Urine Negative (Negative); PH, Urine 5.5 (5.0-8.0); Specific Gravity,Urine 1.018 (1.001-1.030); Urobilinogen,Urine 0.2 (0.2,1.0)
[2022-05-08 00:14] LABS: Bacteria,Urine None Seen /HPF (None Seen)
== END | disposition home or self-care (01) ==
LOC: LABWHC1 12:57
PROVIDERS: ATTEND Internal Medicine Nephrology
DX: N25.81 Secondary hyperparathyroidism of renal origin (principal); E55.9 Vitamin D deficiency, unspecified; M10.9 Gout, unspecified; N39.0 Urinary tract infection, site not specified; D63.1 Anemia in chronic kidney disease; N18.32 Chronic kidney disease, stage 3b
CPT/HCPCS: 36415; 80048; 81001; 82040; 82306; 83540; 83550; 83735; 83970; 84100; 84550; 85025

== ENCOUNTER → 2022-07-27 | Outpatient (CLI) | payer MEDICARE, BC ==
[2022-07-27 18:29] LABS: ALT 16 U/L (8-44); AST 18 U/L (13-35); African American GFR (CKD) 60.1 (60.0-200.0); Albumin 3.4 g/dL (3.8-4.9); Albumin/Globulin Ratio 0.94 (1.60-3.17); Alkaline Phosphatase 88 U/L (41-126); BUN/Creat Ratio 20.79 Ratio (12.00-20.00); Blood Urea Nitrogen 23.7 mg/dL (9.0-27.0); Calcium 8.9 mg/dL (8.7-10.3); Carbon Dioxide 27.1 mmol/L (20.0-27.5); Chloride 105 mmol/L (96-109); Chol/HDL Ratio 2.79 Ratio; Globulin 3.6 g/dL (1.6-3.3); Glucose 180 mg/dL (70-110); LDL Cholesterol,Calculated 52.5 mg/dL (0.0-131.0); Non-African American GFR(CKD) 51.9 (60.0-200.0); Potassium 4.5 mmol/L (3.5-5.5); Sodium 139 mmol/L (135-145)
== END | disposition home or self-care (01) ==
LOC: LABWHC1 10:33
PROVIDERS: ATTEND Internal Medicine Interventional Cardiology
DX: E78.2 Mixed hyperlipidemia (principal)
CPT/HCPCS: 36415; 80053; 80061

== ENCOUNTER → 2022-08-18 | Outpatient (CLI) | payer MEDICARE, BC ==
--- NOTE | 2022-08-18 16:10 | US ---
EXAMINATION TYPE: US venous doppler duplex LE RT DATE OF EXAM: 08/18/2022 3:28 PM COMPARISON: NONE CLINICAL INDICATION: Female, 61 years old with history of RLE;i81 R60.9 EDEMA, UNSPECIFIED; Right le g edema, patient on blood thinner (cardiac) SIDE PERFORMED: right TECHNIQUE: The lower extremity deep venous system is examined utilizing real time linear array sonog rohith with graded compression, doppler sonography and color-flow sonography. VESSELS IMAGED: Common Femoral Vein Deep Femoral Vein Greater Saphenous Vein * Femoral Vein Popliteal Vein Small Saphenous Vein * Proximal Calf Veins (* superficial vessels) Right Leg: no evidence of DVT. complex anechoic area right popliteal fossa = 5.1 x 1.2 x 1.8cm, Bake r's cyst IMPRESSION: 1. Right lower extremity ultrasound negative for deep venous thrombosis. 2. Complex popliteal cyst right popliteal fossa
== END | disposition home or self-care (01) ==
LOC: RADUSWWP 14:45
PROVIDERS: ATTEND Internal Medicine Interventional Cardiology
DX: M71.21 Synovial cyst of popliteal space [Baker], right knee (principal); R60.0 Localized edema

== ENCOUNTER → 2022-08-24 | Outpatient (CLI) | payer MEDICARE, BC ==
[2022-08-24 16:07] LABS: ALT 20 U/L (8-44); AST 17 U/L (13-35); African American GFR (CKD) 61.4 (60.0-200.0); Albumin 3.3 g/dL (3.8-4.9); Albumin/Globulin Ratio 1.14 (1.60-3.17); Alkaline Phosphatase 94 U/L (41-126); BUN/Creat Ratio 15.98 Ratio (12.00-20.00); Blood Urea Nitrogen 17.9 mg/dL (9.0-27.0); Calcium 8.6 mg/dL (8.7-10.3); Chloride 107 mmol/L (96-109); Chol/HDL Ratio 2.39 Ratio; Globulin 2.9 g/dL (1.6-3.3); Glucose 142 mg/dL (70-110); LDL Cholesterol,Calculated 47.2 mg/dL (0.0-131.0); Potassium 4.7 mmol/L (3.5-5.5); Sodium 141 mmol/L (135-145); Total Protein 6.3 g/dL (6.2-8.2)
== END | disposition home or self-care (01) ==
LOC: LABWHC1 11:26
PROVIDERS: ATTEND Internal Medicine Interventional Cardiology
DX: E78.2 Mixed hyperlipidemia (principal)
CPT/HCPCS: 36415; 80053; 80061

== ENCOUNTER → 2022-11-08 | Outpatient (CLI) | payer MEDICARE, BC ==
--- NOTE | 2022-11-08 21:33 | XR ---
EXAMINATION TYPE: XR foot complete LT DATE OF EXAM: 11/08/2022 COMPARISON: NONE HISTORY: Pain TECHNIQUE: Three views are submitted. FINDINGS: There is diffuse osteopenia. There is a hairline fracture through the proximal phalanx of the fifth d igit. Mild lucency involving the head of the fifth fifth metatarsal. This may be on the basis of localized osteopenia. Large plantar calcaneal spur. Vascular calcifications incidentally noted. IMPRESSION: 1. Hairline mildly displaced fracture proximal phalanx fifth digit. A Yellow level critical message alert has been initiated for Shade Clemens MD via the [facility] System on 11/08/2022 9:30 PM. This message alert has been sent to Shade Clemens MD via the preferences provided by the clinician for the receipt of Radiology Critical Findings. Message ID [id number].
== END | disposition home or self-care (01) ==
LOC: RADXRMAIN 16:33
PROVIDERS: ATTEND Family Medicine
DX: S92.512A Displaced fracture of proximal phalanx of left lesser toe(s), initial encounter for closed fracture (principal)

== ENCOUNTER → 2022-11-12 | Outpatient (CLI) | payer MEDICARE, BC ==
[2022-11-12 15:41] LABS: Appearance,Urine Clear (Clear); Bilirubin,Urine Negative (Negative); Blood,Urine Trace (Negative); Color,Urine Yellow; Glucose,Urine (UA) 4+ (Negative); Ketones,Urine Negative (Negative); Leukocyte Esterase,Urine Negative (Negative); Nitrite,Urine Negative (Negative); PH, Urine 6.5 (5.0-8.0); Protein,Urine 3+ (Negative); RBC,Urine 8 /hpf (0-5); Specific Gravity,Urine 1.016 (1.001-1.035); Squamous Epithelial Cell,Urine <1 /hpf (0-4); Urobilinogen,Urine <2.0 mg/dL (<2.0); WBC,Urine 1 /hpf (0-5)
[2022-11-12 20:10] LABS: Basophils # (A) 0.04 X 10*3/uL (0.00-0.10); Basophils % (A) 0.7 %; Eosinophils # (A) 0.08 X 10*3/uL (0.04-0.35); Eosinophils % (A) 1.4 %; HCT 37.3 % (37.2-46.3); HGB 11.9 d/dL (12.0-15.0); Lymphocytes # (A) 1.84 X 10*3/uL (0.90-5.00); Lymphocytes % (A) 33.2 %; MCH 27.8 pg (27.0-32.0); MCHC 31.9 d/dL (32.0-37.0); MCV 87.1 FL (80.0-97.0); Mean Platelet Volume 10.1 FL (9.5-12.2); Monocytes # (A) 0.53 X 10*3/uL (0.20-1.00); Monocytes % (A) 9.6 %; NRBC Per 100 WBC 0 X 10*3/uL (0.00-0.01); Neutrophils # (A) 3.02 X 10*3/uL (1.80-7.70); Neutrophils % (A) 54.6 %; Platelet Count 250 X 10*3/uL (140-440); RBC 4.28 X 10*6/uL (4.10-5.20); RDW 14.3 % (11.5-14.5); WBC 5.54 X 10*3/uL (4.50-10.00)
[2022-11-12 20:35] LABS: Magnesium 2.2 mg/dL (1.5-2.4); Phosphorus 5.1 mg/dL (2.4-5.1)
[2022-11-12 20:36] LABS: % Iron Saturation 17.05 (12.00-45.00); Albumin 3.5 d/dL (3.8-4.9); Calcium 8.9 mg/dL (8.7-10.3); Carbon Dioxide 24.8 mmol/L (21.6-31.8); Chloride 103 mmol/L (96-109); Glucose 91 mg/dL (70-110); Iron 52 UG/DL (50-170); Potassium 4.8 mmol/L (3.5-5.5); Sodium 139 mmol/L (135-145); Total Iron Binding Capacity 305 UG/DL (228-460); Uric Acid 7.8 mg/dL (2.9-7.7)
[2022-11-12 22:37] LABS: Urine Creatinine 76.4 mg/dL (28.0-217.0)
== END | disposition home or self-care (01) ==
LOC: LABWHC1 14:09
PROVIDERS: ATTEND Internal Medicine Nephrology
DX: N25.81 Secondary hyperparathyroidism of renal origin (principal); N18.32 Chronic kidney disease, stage 3b; D63.1 Anemia in chronic kidney disease; E55.9 Vitamin D deficiency, unspecified; M10.9 Gout, unspecified; N39.0 Urinary tract infection, site not specified
CPT/HCPCS: 36415; 80048; 81001; 82040; 82043; 82306; 82570; 82728; 83540; 83550; 83735; 83970; 84100; 84550; 85025

== ENCOUNTER → 2023-03-09 | Outpatient (CLI) | payer MEDICARE, BC ==
[2023-03-09 19:54] LABS: Basophils # (A) 0.05 X 10*3/uL (0.00-0.10); Basophils % (A) 0.8 %; Eosinophils # (A) 0.07 X 10*3/uL (0.04-0.35); Eosinophils % (A) 1.1 %; HCT 41.3 % (37.2-46.3); HGB 13.1 g/dL (12.0-15.0); Lymphocytes # (A) 1.95 X 10*3/uL (0.90-5.00); Lymphocytes % (A) 31.9 %; MCH 27.4 pg (27.0-32.0); MCHC 31.7 g/dL (32.0-37.0); MCV 86.4 FL (80.0-97.0); Mean Platelet Volume 10.4 FL (9.5-12.2); Monocytes # (A) 0.58 X 10*3/uL (0.20-1.00); Monocytes % (A) 9.5 %; NRBC Per 100 WBC 0 X 10*3/uL (0.00-0.01); Neutrophils # (A) 3.42 X 10*3/uL (1.80-7.70); Platelet Count 219 X 10*3/uL (140-440); RBC 4.78 X 10*6/uL (4.10-5.20); RDW 15.3 % (11.5-14.5); WBC 6.11 X 10*3/uL (4.50-10.00)
[2023-03-10 01:55] LABS: Appearance,Urine Clear (Clear); Bilirubin,Urine Negative (Negative); Blood,Urine Trace (Negative); Color,Urine Yellow (Yellow); Ketones,Urine Negative (Negative); Nitrite,Urine Negative (Negative); PH, Urine 6.5; Specific Gravity,Urine 1.026 (1.001-1.030)
[2023-03-10 02:02] LABS: Bacteria,Urine None Seen (None Seen)
[2023-03-10 02:51] LABS: % Iron Saturation 16.46 (12.00-45.00); Albumin 3.8 g/dL (3.8-4.9); BUN/Creat Ratio 22.91 Ratio (12.00-20.00); Blood Urea Nitrogen 25.2 mg/dL (9.0-27.0); Calcium 9.1 mg/dL (8.7-10.3); Carbon Dioxide 26.8 mmol/L (21.6-31.8); Chloride 103 mmol/L (96-109); Glucose 143 mg/dL (70-110); Iron 54 UG/DL (50-170); Phosphorus 4.5 mg/dL (2.4-5.1); Potassium 5.2 mmol/L (3.5-5.5); Sodium 142 mmol/L (135-145); Total Iron Binding Capacity 328 UG/DL (228-460); Uric Acid 6.8 mg/dL (2.9-7.7)
[2023-03-10 05:07] LABS: Urine Creatinine 63.3 mg/dL (28.0-217.0)
== END | disposition home or self-care (01) ==
LOC: LABWHC1 12:31
PROVIDERS: ATTEND Internal Medicine Nephrology
DX: N25.81 Secondary hyperparathyroidism of renal origin (principal); N18.32 Chronic kidney disease, stage 3b; D63.1 Anemia in chronic kidney disease; E55.9 Vitamin D deficiency, unspecified; M10.9 Gout, unspecified; N39.0 Urinary tract infection, site not specified; R80.9 Proteinuria, unspecified
CPT/HCPCS: 36415; 80048; 81001; 82040; 82043; 82306; 82570; 82728; 83540; 83550; 83735; 83970; 84100; 84550; 85025

== ENCOUNTER → 2023-07-19 | Outpatient (CLI) | payer MEDICARE, BC ==
[2023-07-19 17:30] LABS: BUN/Creat Ratio 16.14 Ratio (12.00-20.00); Blood Urea Nitrogen 22.6 mg/dL (9.0-27.0); Calcium 9.1 mg/dL (8.7-10.3); Carbon Dioxide 26.1 mmol/L (21.6-31.8); Chloride 97 mmol/L (96-109); Glucose 176 mg/dL (70-110); Potassium 4.8 mmol/L (3.5-5.5); Sodium 135 mmol/L (135-145)
== END | disposition home or self-care (01) ==
LOC: LABWHC1 12:40
PROVIDERS: ATTEND Nurse Practitioner Family
DX: N18.32 Chronic kidney disease, stage 3b (principal)
CPT/HCPCS: 36415; 80048; 82272

== ENCOUNTER → 2023-08-01 | Outpatient (CLI) | payer MEDICARE, BC ==
--- NOTE | 2023-08-01 12:27 | US ---
EXAMINATION TYPE: US kidneys/renal and bladder DATE OF EXAM: 08/01/2023 COMPARISON: US CLINICAL INDICATION: Female, 62 years old with history of N18.32 CKD; CKD EXAM MEASUREMENTS: Right Kidney: 9.6 x 4.5 x 4.8 cm Left Kidney: 12.3 x 5.9 x 5.5 cm No shadowing renal calculi evident. No hydronephrosis evident. Right Kidney: Lobulated contour, no evidence of hydro Left Kidney: Lobulated contour, no evidence of hydro Bladder: wnl Bilateral Jets seen: No IMPRESSION: 1. No acute renal ultrasound abnormality.
== END | disposition home or self-care (01) ==
LOC: RADUSWWP 11:24
PROVIDERS: ATTEND Internal Medicine Nephrology
DX: N18.32 Chronic kidney disease, stage 3b (principal)
CPT/HCPCS: 76770

== ENCOUNTER → 2023-09-12 | Outpatient (CLI) | payer MEDICARE, BC ==
[2023-09-12 14:37] LABS: Creatinine,Urine Random 75.1 mg/dL
[2023-09-12 14:52] LABS: Protein/Creatinine Ratio,Urine 3.289
[2023-09-13 03:12] LABS: Basophils # (A) 0.05 X 10*3/uL (0.00-0.10); Basophils % (A) 0.7 %; Eosinophils # (A) 0.09 X 10*3/uL (0.04-0.35); Eosinophils % (A) 1.2 %; HCT 33.7 % (37.2-46.3); HGB 10.8 g/dL (12.0-15.0); Lymphocytes % (A) 24.4 %; MCH 27.1 pg (27.0-32.0); MCV 84.7 FL (80.0-97.0); Mean Platelet Volume 11.2 FL (9.5-12.2); Monocytes # (A) 0.55 X 10*3/uL (0.20-1.00); Monocytes % (A) 7.4 %; NRBC Per 100 WBC 0 X 10*3/uL (0.00-0.01); Neutrophils # (A) 4.87 X 10*3/uL (1.80-7.70); Neutrophils % (A) 65.9 %; Platelet Count 172 X 10*3/uL (140-440); RBC 3.98 X 10*6/uL (4.10-5.20); RDW 16.6 % (11.5-14.5); WBC 7.39 X 10*3/uL (4.50-10.00)
[2023-09-13 03:32] LABS: Appearance,Urine Turbid (Clear); Bilirubin,Urine Negative (Negative); Blood,Urine Moderate (Negative); Color,Urine Yellow (Yellow); Ketones,Urine Negative (Negative); Nitrite,Urine Negative (Negative); Specific Gravity,Urine 1.015 (1.001-1.030); Urobilinogen,Urine 0.2 E.U./DL
[2023-09-13 03:40] LABS: % Iron Saturation 9.51 (12.00-45.00); Albumin 4.1 g/dL (3.8-4.9); BUN/Creat Ratio 22.06 Ratio (12.00-20.00); Blood Urea Nitrogen 39.7 mg/dL (9.0-27.0); Calcium 9.1 mg/dL (8.7-10.3); Carbon Dioxide 24.6 mmol/L (21.6-31.8); Chloride 99 mmol/L (96-109); Glucose 142 mg/dL (70-110); Iron 31 UG/DL (50-170); Magnesium 2.3 mg/dL (1.5-2.4); Phosphorus 4.5 mg/dL (2.4-5.1); Potassium 5.4 mmol/L (3.5-5.5); Sodium 136 mmol/L (135-145); Total Iron Binding Capacity 326 UG/DL (228-460); Uric Acid 8.4 mg/dL (2.9-7.7)
[2023-09-13 04:57] LABS: Bacteria,Urine 4+ (None Seen)
== END | disposition home or self-care (01) ==
LOC: LABWHC1 13:58
PROVIDERS: ATTEND Internal Medicine Nephrology
DX: E55.9 Vitamin D deficiency, unspecified (principal); N25.81 Secondary hyperparathyroidism of renal origin; M10.9 Gout, unspecified; N39.0 Urinary tract infection, site not specified; N18.32 Chronic kidney disease, stage 3b; D63.1 Anemia in chronic kidney disease
CPT/HCPCS: 36415; 80048; 81001; 82040; 82306; 82570; 82728; 83540; 83550; 83735; 83970; 84100; 84156; 84550; 85025

== ENCOUNTER → 2023-10-05 | Outpatient (CLI) | payer MEDICARE, BC ==
[2023-10-05 19:44] LABS: ALT 16 U/L (8-44); AST 20 U/L (13-35); Chol/HDL Ratio 2.89 Ratio; LDL Cholesterol,Calculated 47.8 mg/dL (0.0-131.0)
== END | disposition home or self-care (01) ==
LOC: LABWHC1 12:40
PROVIDERS: ATTEND Nurse Practitioner Adult Health
DX: E78.2 Mixed hyperlipidemia (principal)
CPT/HCPCS: 36415; 80061; 84450; 84460

== ENCOUNTER → 2024-01-20 | Outpatient (CLI) | payer MEDICARE, BC ==
[2024-01-20 17:40] LABS: Creatinine,Urine Random 50.7 mg/dL; Protein/Creatinine Ratio,Urine 2.742
[2024-01-20 20:07] LABS: Basophils # (A) 0.05 X 10*3/uL (0.00-0.10); Basophils % (A) 0.6 %; Eosinophils # (A) 0.26 X 10*3/uL (0.04-0.35); HCT 36.5 % (37.2-46.3); HGB 11.8 g/dL (12.0-15.0); Lymphocytes # (A) 2.66 X 10*3/uL (0.90-5.00); Lymphocytes % (A) 30.9 %; MCH 27.9 pg (27.0-32.0); MCHC 32.3 g/dL (32.0-37.0); MCV 86.3 FL (80.0-97.0); Mean Platelet Volume 10.4 FL (9.5-12.2); Monocytes % (A) 8.1 %; NRBC Per 100 WBC 0 X 10*3/uL (0.00-0.01); Neutrophils % (A) 57.1 %; Platelet Count 224 X 10*3/uL (140-440); RBC 4.23 X 10*6/uL (4.10-5.20); RDW 16.2 % (11.5-14.5)
[2024-01-20 20:31] LABS: % Iron Saturation 17.18 (12.00-45.00); Albumin 4.1 g/dL (3.8-4.9); BUN/Creat Ratio 22.78 Ratio (12.00-20.00); Carbon Dioxide 22.6 mmol/L (21.6-31.8); Chloride 100 mmol/L (96-109); Glucose 152 mg/dL (70-110); Iron 56 UG/DL (50-170); Phosphorus 4.6 mg/dL (2.4-5.1); Potassium 5.1 mmol/L (3.5-5.5); Sodium 136 mmol/L (135-145); Total Iron Binding Capacity 326 UG/DL (228-460); Uric Acid 8.3 mg/dL (2.9-7.7)
[2024-01-20 20:37] LABS: Appearance,Urine Turbid (Clear); Bilirubin,Urine Negative (Negative); Blood,Urine Small (Negative); Color,Urine Yellow (Yellow); Ketones,Urine Negative (Negative); Nitrite,Urine Negative (Negative); Specific Gravity,Urine 1.016 (1.001-1.030)
[2024-01-20 20:45] LABS: Bacteria,Urine 4+ (None Seen)
== END | disposition home or self-care (01) ==
LOC: LABWHC1 14:23
PROVIDERS: ATTEND Internal Medicine Nephrology
DX: D64.9 Anemia, unspecified
CPT/HCPCS: 36415; 80048; 81001; 82040; 82306; 82570; 82728; 83540; 83550; 83735; 83970; 84100; 84156; 84550; 85025

== ENCOUNTER → 2024-04-10 | Outpatient (CLI) | payer MEDICARE, BC ==
[2024-04-10 21:04] LABS: ALT 18 U/L (8-44); AST 19 U/L (13-35); Albumin 4.4 g/dL (3.8-4.9); Albumin/Globulin Ratio 1.38 Ratio (1.60-3.17); Alkaline Phosphatase 106 U/L (41-126); BUN/Creat Ratio 23.47 Ratio (12.00-20.00); Blood Urea Nitrogen 44.6 mg/dL (9.0-27.0); Calcium 9.4 mg/dL (8.7-10.3); Carbon Dioxide 25.5 mmol/L (21.6-31.8); Chloride 101 mmol/L (96-109); Chol/HDL Ratio 3.07 Ratio; Globulin 3.2 g/dL (1.6-3.3); Glucose 186 mg/dL (70-110); LDL Cholesterol,Calculated 67.4 mg/dL (0.0-131.0); Potassium 5.2 mmol/L (3.5-5.5); Sodium 139 mmol/L (135-145); Total Bilirubin 0.5 mg/dL (0.3-1.2); Total Protein 7.6 g/dL (6.2-8.2)
== END | disposition home or self-care (01) ==
LOC: LABWHC1 13:17
PROVIDERS: ATTEND Internal Medicine Interventional Cardiology
DX: E78.2 Mixed hyperlipidemia (principal)
CPT/HCPCS: 36415; 80053; 80061

== ENCOUNTER → 2024-04-13 | Outpatient (CLI) | payer MEDICARE, BC ==
[2024-04-13 15:22] LABS: Appearance,Urine Cloudy (Clear); Bilirubin,Urine Negative (Negative); Blood,Urine Trace (Negative); Color,Urine Yellow (Yellow); Ketones,Urine Negative (Negative); Nitrite,Urine Positive (Negative); PH, Urine 5.5; Specific Gravity,Urine 1.015 (1.001-1.030); Urobilinogen,Urine 0.2 E.U./DL
[2024-04-13 15:28] LABS: Bacteria,Urine 4+ (None Seen)
[2024-04-13 15:30] LABS: % Iron Saturation 18.32 (12.00-45.00); Iron 61 UG/DL (50-170); Magnesium 2.2 mg/dL (1.5-2.4); Phosphorus 4.5 mg/dL (2.4-5.1); Total Iron Binding Capacity 333 UG/DL (228-460); Uric Acid 8.3 mg/dL (2.9-7.7)
[2024-04-13 15:35] LABS: Albumin 4.1 g/dL (3.8-4.9); BUN/Creat Ratio 29.94 Ratio (12.00-20.00); Blood Urea Nitrogen 53.9 mg/dL (9.0-27.0); Calcium 8.5 mg/dL (8.7-10.3); Carbon Dioxide 22.7 mmol/L (21.6-31.8); Chloride 101 mmol/L (96-109); Glucose 345 mg/dL (70-110); Potassium 4.3 mmol/L (3.5-5.5); Sodium 137 mmol/L (135-145)
[2024-04-13 17:12] LABS: Basophils # (A) 0.03 X 10*3/uL (0.00-0.10); Basophils % (A) 0.5 %; Eosinophils # (A) 0.11 X 10*3/uL (0.04-0.35); Eosinophils % (A) 1.7 %; HCT 38.4 % (37.2-46.3); HGB 12.4 g/dL (12.0-15.0); Lymphocytes # (A) 2.17 X 10*3/uL (0.90-5.00); MCH 28.9 pg (27.0-32.0); MCHC 32.3 g/dL (32.0-37.0); MCV 89.5 FL (80.0-97.0); Mean Platelet Volume 10.4 FL (9.5-12.2); Monocytes # (A) 0.54 X 10*3/uL (0.20-1.00); Monocytes % (A) 8.2 %; NRBC Per 100 WBC 0 X 10*3/uL (0.00-0.01); Neutrophils # (A) 3.69 X 10*3/uL (1.80-7.70); Neutrophils % (A) 56.1 %; Platelet Count 222 X 10*3/uL (140-440); RBC 4.29 X 10*6/uL (4.10-5.20); RDW 13.5 % (11.5-14.5); WBC 6.57 X 10*3/uL (4.50-10.00)
[2024-04-13 19:14] LABS: Urine Creatinine 27.7 mg/dL (28.0-217.0)
== END | disposition home or self-care (01) ==
LOC: LABWHC1 10:24
PROVIDERS: ATTEND Internal Medicine Nephrology
DX: E55.9 Vitamin D deficiency, unspecified (principal); N18.32 Chronic kidney disease, stage 3b; D63.1 Anemia in chronic kidney disease; N25.81 Secondary hyperparathyroidism of renal origin; M10.9 Gout, unspecified; N39.0 Urinary tract infection, site not specified; R80.9 Proteinuria, unspecified
CPT/HCPCS: 36415; 80048; 81001; 82040; 82043; 82306; 82570; 82728; 83540; 83550; 83735; 83970; 84100; 84550; 85025

== ENCOUNTER → 2024-08-13 | Outpatient (CLI) | payer BC, MEDICARE ==
[2024-08-13 15:22] LABS: Basophils # (A) 0.05 X 10*3/uL (0.00-0.10); Basophils % (A) 0.6 %; Eosinophils # (A) 0.13 X 10*3/uL (0.04-0.35); Eosinophils % (A) 1.5 %; HCT 39.8 % (37.2-46.3); HGB 12.9 g/dL (12.0-15.0); Lymphocytes # (A) 3.22 X 10*3/uL (0.90-5.00); Lymphocytes % (A) 38.1 %; MCH 29.5 pg (27.0-32.0); MCHC 32.4 g/dL (32.0-37.0); MCV 91.1 FL (80.0-97.0); Mean Platelet Volume 9.9 FL (9.5-12.2); Monocytes # (A) 0.76 X 10*3/uL (0.20-1.00); NRBC Per 100 WBC 0 X 10*3/uL (0.00-0.01); Neutrophils # (A) 4.26 X 10*3/uL (1.80-7.70); Neutrophils % (A) 50.4 %; Platelet Count 236 X 10*3/uL (140-440); RBC 4.37 X 10*6/uL (4.10-5.20); RDW 14.6 % (11.5-14.5); WBC 8.45 X 10*3/uL (4.50-10.00)
[2024-08-13 16:11] LABS: Albumin 4.1 g/dL (3.8-4.9); Blood Urea Nitrogen 31.6 mg/dL (9.0-27.0); Calcium 9.1 mg/dL (8.7-10.3); Carbon Dioxide 23.7 mmol/L (21.6-31.8); Chloride 101 mmol/L (96-109); Glucose 121 mg/dL (70-110); Iron 65 UG/DL (50-170); Phosphorus 4.3 mg/dL (2.4-5.1); Potassium 4.9 mmol/L (3.5-5.5); Sodium 138 mmol/L (135-145); Total Iron Binding Capacity 335 UG/DL (228-460); Uric Acid 6.7 mg/dL (2.9-7.7)
[2024-08-13 22:21] LABS: Urine Creatinine 49.7 mg/dL (28.0-217.0)
== END | disposition home or self-care (01) ==
LOC: LABWHC1 12:21
PROVIDERS: ATTEND Nurse Practitioner Family
DX: N18.32 Chronic kidney disease, stage 3b (principal); D63.1 Anemia in chronic kidney disease; E55.9 Vitamin D deficiency, unspecified; N39.0 Urinary tract infection, site not specified; M10.9 Gout, unspecified; N25.81 Secondary hyperparathyroidism of renal origin; R80.9 Proteinuria, unspecified
CPT/HCPCS: 36415; 80048; 82040; 82043; 82306; 82570; 82728; 83540; 83550; 83735; 83970; 84100; 84550; 85025

== ENCOUNTER → 2024-10-19 | Outpatient (CLI) | payer BC, MEDICARE ==
[2024-10-19 20:48] LABS: ALT 20 U/L (8-44); AST 23 U/L (13-35); Albumin 4.3 g/dL (3.8-4.9); Albumin/Globulin Ratio 1.48 Ratio (1.60-3.17); Alkaline Phosphatase 96 U/L (41-126); BUN/Creat Ratio 18.65 Ratio (12.00-20.00); Blood Urea Nitrogen 31.7 mg/dL (9.0-27.0); Calcium 9.4 mg/dL (8.7-10.3); Carbon Dioxide 25.3 mmol/L (21.6-31.8); Chloride 100 mmol/L (96-109); Globulin 2.9 g/dL (1.6-3.3); Glucose 120 mg/dL (70-110); LDL Cholesterol,Calculated 52.2 mg/dL (0.0-131.0); Potassium 4.7 mmol/L (3.5-5.5); Sodium 138 mmol/L (135-145); Total Bilirubin 0.4 mg/dL (0.3-1.2); Total Protein 7.2 g/dL (6.2-8.2)
== END | disposition home or self-care (01) ==
LOC: LABWHC1 13:45
PROVIDERS: ATTEND Internal Medicine Interventional Cardiology
DX: E78.2 Mixed hyperlipidemia (principal)
CPT/HCPCS: 36415; 80053; 80061

== ENCOUNTER → 2024-11-05 | Outpatient (CLI) | payer BC, MEDICARE ==
[2024-11-05 21:15] LABS: Basophils # (A) 0.05 X 10*3/uL (0.00-0.10); Basophils % (A) 0.6 %; Eosinophils # (A) 0.12 X 10*3/uL (0.04-0.35); Eosinophils % (A) 1.4 %; HCT 37.9 % (37.2-46.3); HGB 12.3 g/dL (12.0-15.0); Immature Grans, Automated 0.50 %; Lymphocytes # (A) 2.49 X 10*3/uL (0.90-5.00); Lymphocytes % (A) 30.0 %; MCH 30.4 pg (27.0-32.0); MCHC 32.5 g/dL (32.0-37.0); MCV 93.8 FL (80.0-97.0); Monocytes # (A) 0.67 X 10*3/uL (0.20-1.00); Monocytes % (A) 8.1 %; NRBC Per 100 WBC 0 X 10*3/uL (0.00-0.01); Neutrophils # (A) 4.94 X 10*3/uL (1.80-7.70); Neutrophils % (A) 59.4 %; Platelet Count 233 X 10*3/uL (140-440); RBC 4.04 X 10*6/uL (4.10-5.20); RDW 13.1 % (11.5-14.5); WBC 8.31 X 10*3/uL (4.50-10.00)
[2024-11-05 21:23] LABS: Albumin 4.1 g/dL (3.8-4.9); Anion Gap 14.90 mmol/L (4.00-12.00); BUN/Creat Ratio 20.94 Ratio (12.00-20.00); Blood Urea Nitrogen 37.7 mg/dL (9.0-27.0); Calcium 8.9 mg/dL (8.7-10.3); Carbon Dioxide 23.1 mmol/L (21.6-31.8); Chloride 102 mmol/L (96-109); Ferritin 232.0 ng/mL (10.0-291.0); Glucose 204 mg/dL (70-110); Iron 78 UG/DL (50-170); Magnesium 2.0 mg/dL (1.5-2.4); Potassium 5.3 mmol/L (3.5-5.5); Sodium 140 mmol/L (135-145); Total Iron Binding Capacity 311 UG/DL (228-460); Uric Acid 7.7 mg/dL (2.9-7.7)
== END | disposition home or self-care (01) ==
LOC: LABWHC1 14:22
PROVIDERS: ATTEND Nurse Practitioner Family
DX: E55.9 Vitamin D deficiency, unspecified (principal); N25.81 Secondary hyperparathyroidism of renal origin; N39.0 Urinary tract infection, site not specified; M10.9 Gout, unspecified; N18.32 Chronic kidney disease, stage 3b; D63.1 Anemia in chronic kidney disease
CPT/HCPCS: 36415; 80048; 82040; 82306; 82728; 83540; 83550; 83735; 83970; 84100; 84550; 85025